=== PATIENT | male | born 1950 | race Caucasian/White ===

== ENCOUNTER 2022-09-19 08:11 | Outpatient (REF) | payer MEDICARE, SELFPAY ==
[2022-09-19 11:24] LABS: MANUAL DIFF FLAG NO
[2022-09-19 11:54] LABS: Basophils Percent Auto 0.5 % (0-2); Eosinophils Absolute Auto 0.2 X10*3/uL (0.0-0.4); Eosinophils Percent Auto 1.8 % (0-4); Hematocrit 41.4 % (42.0-52.0); Hemoglobin 14.3 g/dl (14.0-18.0); Imm Gran Abs Auto 0.07 X10*3/uL (0.00-0.03); Imm Gran Pct Auto 0.8 % (0.0-0.4); Lymphocytes Absolute Auto 2.8 X10*3/uL (1.2-4.9); Lymphocytes Percent Auto 32.5 % (20-40); Mean Corpuscular HGB Conc 34.5 g/dl (31.0-36.0); Mean Corpuscular Hemoglobin 32.3 pg (27.0-33.0); Mean Corpuscular Volume 93.5 fL (80.0-98.0); Monocytes Absolute Auto 0.6 X10*3/uL (0.1-1.2); Monocytes Percent Auto 6.8 % (2-11); Neutrophils Absolute Auto 4.9 x10*3/uL (2.0-8.3); Neutrophils Percent Auto 57.6 % (45-73); Platelet Count 286 X10*3/uL (160-400); Red Blood Count 4.43 X10*6/uL (4.60-5.80); Red Cell Distribution Width 11.6 % (11.0-16.0); White Blood Count 8.5 X10*3/uL (4.8-10.8)
[2022-09-19 12:24] LABS: Alanine Aminotransferase 24 U/L (0-40); Albumin Level 4.3 g/dL (3.5-5.0); Alkaline Phosphatase 45 U/L (39-117); Anion Gap 14 (12-20); Aspartate Amino Transferase 24 U/L (5-37); Bilirubin Total 0.5 mg/dL (0.0-1.0); Blood Urea Nitrogen 15 mg/dL (9-16); Calcium 8.8 mg/dL (8.4-10.2); Carbon Dioxide 28 mmol/L (22-29); Chloride 102 mmol/L (96-108); Cholesterol 209 mg/dL; Estimated Glomerular Filt Rate > 60; Glucose Fasting 92 mg/dL (60-99); HDL Cholesterol 30 mg/dL; LDL Cholesterol Calculated 151 mg/dl; Potassium 3.8 mmol/L (3.3-5.1); Sodium 140 mmol/L (135-145); Total Protein 7.1 g/dL (6.5-8.0); Triglycerides 142 mg/dL
[2022-09-19 12:43] LABS: Prostate Specific Antigen Scr 14.75 ng/mL (<0.05-4.0); TSH reflex Free T4 0.35 uIU/mL (0.32-4.0)
== END 2022-09-19 08:12 | disposition home or self-care (01) ==
LOC: HO.WFDLDS 08:11
PROVIDERS: Visit Provider Family Medicine
DX: Z00.00 Encounter for general adult medical examination without abnormal findings (principal); Z12.5 Encounter for screening for malignant neoplasm of prostate
CPT/HCPCS: 36415; 80053; 80061; 84153; 84443; 85025

== ENCOUNTER 2022-12-20 08:04 | Outpatient (REF) | payer MEDICARE, SELFPAY ==
[2022-12-20 11:37] LABS: MANUAL DIFF FLAG NO
[2022-12-20 11:41] LABS: Basophils Percent Auto 0.4 % (0-2); Eosinophils Absolute Auto 0.1 X10*3/uL (0.0-0.4); Eosinophils Percent Auto 0.9 % (0-4); Hemoglobin 14.7 g/dl (14.0-18.0); Imm Gran Abs Auto 0.06 X10*3/uL (0.00-0.03); Imm Gran Pct Auto 0.7 % (0.0-0.4); Lymphocytes Absolute Auto 2.5 X10*3/uL (1.2-4.9); Lymphocytes Percent Auto 28.1 % (20-40); Mean Corpuscular HGB Conc 34.2 g/dl (31.0-36.0); Mean Corpuscular Hemoglobin 32.1 pg (27.0-33.0); Mean Corpuscular Volume 93.9 fL (80.0-98.0); Mean Platelet Volume 11.5 fL (9.4-12.4); Monocytes Absolute Auto 0.8 X10*3/uL (0.1-1.2); Monocytes Percent Auto 8.7 % (2-11); Neutrophils Absolute Auto 5.5 x10*3/uL (2.0-8.3); Neutrophils Percent Auto 61.2 % (45-73); Platelet Count 256 X10*3/uL (160-400); Red Blood Count 4.58 X10*6/uL (4.60-5.80); Red Cell Distribution Width 12.2 % (11.0-16.0); White Blood Count 9.1 X10*3/uL (4.8-10.8)
[2022-12-20 12:36] LABS: Cholesterol 210 mg/dL; HDL Cholesterol 35 mg/dL; LDL Cholesterol Calculated 149 mg/dl; Triglycerides 130 mg/dL
== END 2022-12-20 08:05 | disposition home or self-care (01) ==
LOC: HO.WFDLDS 08:04
PROVIDERS: Visit Provider Family Medicine
DX: Z00.00 Encounter for general adult medical examination without abnormal findings (principal); E78.00 Pure hypercholesterolemia, unspecified; D64.9 Anemia, unspecified
CPT/HCPCS: 36415; 80061; 85025

== ENCOUNTER 2023-03-20 07:38 | Outpatient (REF) | payer MEDICARE, SELFPAY ==
[2023-03-20 13:33] LABS: Cholesterol 158 mg/dL; HDL Cholesterol 40 mg/dL; LDL Cholesterol Calculated 92 mg/dl; Triglycerides 133 mg/dL
== END 2023-03-20 07:39 | disposition home or self-care (01) ==
LOC: HO.WFDLDS 07:38
PROVIDERS: Visit Provider Family Medicine
DX: E78.00 Pure hypercholesterolemia, unspecified (principal)
CPT/HCPCS: 36415; 80061

== ENCOUNTER 2023-03-27 08:38 | Outpatient (AMB) | payer MEDICARE, SELFPAY ==
--- NOTE | 2023-03-27 09:26 | A.OFFPC_ITS ---
Vital Signs 03/27/23 09:28 BP 124/78 Blood Pressure Location Rt brachial Pulse 80 Pulse Source Auscultation Intake Visit Reasons: f/u hypercholesterolemia Allergies amoxicillin Allergy (Unknown, Verified 12/25/22 08:38) hives Medication List - Last Reconciled 03/27/23 by Nathan Ferrell MD atorvastatin 10 mg PO BEDTIME 30 days lisinopril-hydrochlorothiazide 20-12.5 mg 1 tab PO DAILY 30 days Tobacco use date assessed: 09/27/22 HPI f/u hypercholesterolemia HPI Details 73 y/o male presents to f/u hypercholesterolemia. Had started him on artovastatin for his cholesterols. He reports he had experiencing muscular soreness/discomfort at bilateral hips that he has never experienced before. Labs were drawn 03/20/23. Reviewed labs with pt. Triglycerides 133. TC 158. LDL 92, which improved from 149. HDL 40. He reports sleep issues have improved. [facility] Social History Housing: House Patient Tobacco Use Status: Former Tobacco user e-Cigarette/Vaping Use: Never Used Second Hand Smoke Exposure: No service: No Current occupational status: retired Current occupational exposures/hazards: No Cognitive needs: No Hearing needs: No Vision needs: No Questionnaire Thrive Questionnaire Date Thrive assessed: 09/27/22 SRIDHAR-7 AMB Questionnaire SRIDHAR-7 Date SRIDHAR - 7 assessed: 09/27/22 Source: Developed by Drs. Don Flynn, Gauri Cevallos, Obey Wilkinson and colleagues, with an educational cindy from [employer]. Review of Systems Const Denies chills, Denies fatigue, Denies fever(s), Denies headache(s) and Denies weakness ENT Denies dizziness and Denies headache(s) Card Denies dyspnea Resp Denies cough, Denies dyspnea, Denies wheezing and Denies other (shortness of breath) Musc Denies numbness and Denies tingling Neuro Denies dizziness, Denies headache(s), Denies numbness, Denies tingling and Denies weakness Psych Denies anxiety and Denies depression Endo Denies fatigue Aller/Immun Denies wheezing Physical exam (Primary Care) Tobacco/Smoking Status: Tobacco use Status Tobacco use date assessed 09/27/22 03/27/23 09:27 Patient Tobacco Use Status Former Tobacco user 03/27/23 09:27 e-Cigarette/Vaping Use Never Used 03/27/23 09:27 Thrive Assessment: Date of Thrive Assessment Date Thrive assessed 09/27/22 03/27/23 09:27 Const General: well developed; No acute distress Nutritional Appearance: well nourished Orientation/consciousness: patient oriented x3 HENMT Head: Yes normocephalic and Yes atraumatic Eyes General: appearance normal, both eyes and all related structures Pupils: Equal, round and reactive pupils present EOM: EOMs intact bilaterally Resp Effort & Inspection: normal respiratory effort Neuro General: patient oriented x3 and gait normal Cranial nerves: Yes Equal, round and reactive pupils present Psych Affect: normal affect Assessment and Plan Assessment & Plan (1) Hypercholesterolemia: Code(s): E78.00 - Pure hypercholesterolemia, unspecified Plan: Lipids now well controlled but patient notes increased soreness at bilateral hips Will have him take atorvastatin 5 mg daily instead of 10 mg daily and follow-up in a few months Coding Level of Care Code Est Pt Level 3 (60474) Diagnoses Hypercholesterolemia E78.00
[2023-03-27 09:28] VITALS: BP 124/78; PULSE 80
== END 2023-03-27 09:28 | disposition home or self-care (01) ==
PROVIDERS: Visit Provider Family Medicine
DX: E78.00 Pure hypercholesterolemia, unspecified (principal)
CPT/HCPCS: 99213

== ENCOUNTER 2023-07-23 07:52 | Outpatient (REF) | payer MEDICARE, SELFPAY ==
[2023-07-23 12:07] LABS: Cholesterol 179 mg/dL (<200); HDL Cholesterol 38 mg/dL (>40); LDL Cholesterol Calculated 110 mg/dL (<100); Triglycerides 158 mg/dL (<150)
== END 2023-07-23 07:53 | disposition home or self-care (01) ==
LOC: HO.WFDLDS 07:52
PROVIDERS: Visit Provider Family Medicine
DX: E78.00 Pure hypercholesterolemia, unspecified (principal)
CPT/HCPCS: 36415; 80061

== ENCOUNTER 2023-08-01 11:47 | Outpatient (AMB) | payer MEDICARE, SELFPAY ==
--- NOTE | 2023-08-01 12:03 | MHC.PC.OV ---
Vital Signs 08/01/23 12:07 BMI Reason not done Patient refused/unable BP 128/60 Blood Pressure Location Lt brachial Position Sitting Respiration 14 Pulse 71 Pulse Source Pulse Oximeter Pulse Oximetry (%) 99 Oxygen Delivery Method Room Air Intake Visit Reasons: follow up hypercholestrolemia Intake Note: Patient is here to review his lab results. Manager Lvn Required: No Accompanied by: Self / Same As Patient Allergies amoxicillin Allergy (Unknown, Verified 08/01/23 12:08) hives Tobacco use date assessed: 08/01/23 Fall risk assessment: No Falls in past year Last assessed Fall Risk: 08/01/23 HPI follow up hypercholestrolemia HPI Details 73 y/o male presents to f/u hypercholesterolemia. Lipid panel drawn 07/23/23. Reviewed labs with pt. Triglycerides 158. TC 179. LDL 110. HDL low at 38. He is on artovastatin 10mg. Blood pressure today 128/60. He is on lisinopril-HCTZ 20-12.5mg daily. Pt reports hx of L eye chalazion and treatment though he notes he has not been able to get rid of this completely. HPI Comments History of Present Illness Details Documentation assistance for Nathan Ferrell MD, was provided by Gee Cuello,? Diploma Pharmacy Technician on 08/01/2023 1:01 PM EST. I, Dr. Ferrell, have read, observed, and verified documentation.? [facility] Social History Housing: House Patient Tobacco Use Status: Former Tobacco user e-Cigarette/Vaping Use: Never Used Second Hand Smoke Exposure: No service: No Current occupational status: retired Current occupational exposures/hazards: No Cognitive needs: No Hearing needs: No Vision needs: No Questionnaire Thrive Questionnaire Date Thrive assessed: 09/27/22 SRIDHAR-7 AMB Questionnaire SRIDHAR-7 Date SRIDHAR - 7 assessed: 09/27/22 Source: Developed by Drs. Don Flynn, Gauri Cevallos, Obey Wilkinson and colleagues, with an educational cindy from [employer]. Review of Systems Const Denies chills, Denies fatigue, Denies fever(s), Denies headache(s) and Denies weakness ENT Denies dizziness and Denies headache(s) Card Denies dyspnea Resp Denies cough, Denies dyspnea, Denies wheezing and Denies other (shortness of breath) Musc Denies numbness and Denies tingling Neuro Denies dizziness, Denies headache(s), Denies numbness, Denies tingling and Denies weakness Psych Denies anxiety and Denies depression Endo Denies fatigue Aller/Immun Denies wheezing Physical exam (Primary Care) Vital Signs: Last Vital Signs Pulse 71 08/01/23 12:07 Resp 14 08/01/23 12:07 BP 128/60 08/01/23 12:07 Pulse Ox 99 08/01/23 12:07 Oxygen Delivery Method Room Air 08/01/23 12:07 Tobacco/Smoking Status: Tobacco use Status Tobacco use date assessed 08/01/23 08/01/23 12:12 Patient Tobacco Use Status Former Tobacco user 08/01/23 12:03 e-Cigarette/Vaping Use Never Used 08/01/23 12:03 Thrive Assessment: Date of Thrive Assessment Date Thrive assessed 09/27/22 08/01/23 12:03 Const General: well developed; No acute distress Nutritional Appearance: well nourished Orientation/consciousness: patient oriented x3 HENMT Head: Yes normocephalic and Yes atraumatic Eyes General: appearance normal, both eyes and all related structures Pupils: Equal, round and reactive pupils present EOM: EOMs intact bilaterally Resp Effort & Inspection: normal respiratory effort Neuro General: patient oriented x3 and gait normal Cranial nerves: Yes Equal, round and reactive pupils present Psych Affect: normal affect Assessment and Plan Assessment & Plan (1) Hypertension: Code(s): I10 - Essential (primary) hypertension Plan: Blood?pressure?is?controlled.??Goal?is?less?than?140/90 Continue?current?medication?regimen (2) Hypercholesterolemia: Code(s): E78.00 - Pure hypercholesterolemia, unspecified Plan: LDL?cholesterol?110?with?reduction?of?atorvastatin;?he?is?now?tolerating?atorvastatin Continue?current?medication?regimen Encouraged?a?diet?lower?in?saturated?fats?and?cholesterol Encouraged?exercise?as?his?HDL?was?mildly?low?at?38 (3) Low HDL (under 40): Code(s): E78.6 - Lipoprotein deficiency Plan: As?above (4) Chalazion: Code(s): H00.19 - Chalazion unspecified eye, unspecified eyelid Plan: Left?eye?chalazion?for?which?patient?has?been?using?warm?compresses?which?have?helped?but?not?fully?resolved?the?problem. Will?give?him?a?script?for?erythromycin?ointment?and?he?can?continue?warm?compresses. If?this?still?does?not?fully?resolve,?would?refer?him?to?Ophthalmology. Medications: New erythromycin 0.5 inches ophthalmic (eye) TID 3.5 grams 0RF 7 days Coding Level of Care Code Est Pt Level 4 (84061) Diagnoses Hypertension I10 Hypercholesterolemia E78.00 Low HDL (under 40) E78.6 Chalazion H00.19
[2023-08-01 12:07] VITALS: BP 128/60; PULSE 71; RESP 14; O2SAT 99
== END 2023-08-01 13:02 | disposition home or self-care (01) ==
PROVIDERS: PCP Family Medicine; Visit Provider Family Medicine
DX: I10 Essential (primary) hypertension (principal); E78.00 Pure hypercholesterolemia, unspecified; E78.6 Lipoprotein deficiency; H00.19 Chalazion unspecified eye, unspecified eyelid
CPT/HCPCS: 99214

== ENCOUNTER → 2023-12-31 09:37 | Outpatient (AMB) | payer MEDICARE, SELFPAY ==
[2023-12-31 09:55] VITALS: BP 130/74; PULSE 70; O2SAT 99
--- NOTE | 2023-12-31 09:55 | A.OFFPC_ITS ---
Vital Signs 12/31/23 09:55 BMI Reason not done Patient refused/unable BP 130/74 Blood Pressure Location Lt brachial Position Sitting Pulse 70 Pulse Source Pulse Oximeter Pulse Oximetry (%) 99 Intake Visit Reasons: f/u HTN Intake Note: Patient is here to follow up on hypertension. Allergies amoxicillin Allergy (Unknown, Verified 12/31/23 09:56) hives Tobacco use date assessed: 12/31/23 Fall risk assessment: 1 Fall in past year Last assessed Fall Risk: 12/31/23 Dental Screening Dental Screen Date: 12/31/23 Did you have a dental visit in the last 12 months?: No Did you have a dental problem in the last 6 months where you did not have access to dental care?: No Was dental information given to patient?: Patient declined HPI f/u HTN HPI Details 73 y/o male presents to f/u hypertension . Blood pressure today 130/74, 70p. He is on lisinopril-HCTZ 20-12.5mg daily. [facility] Social History Housing: House Patient Tobacco Use Status: Former Tobacco user e-Cigarette/Vaping Use: Never Used Second Hand Smoke Exposure: No service: No Current occupational status: retired Current occupational exposures/hazards: No Cognitive needs: No Hearing needs: No Vision needs: No Questionnaire PHQ-9 Over the last 2 weeks, how often have you been bothered by any of the following problems? 1. Little interest or pleasure in doing things: not at all 2. Feeling down, depressed, or hopeless: not at all 3. Trouble falling or staying asleep, or sleeping too much: not at all 4. Feeling tired or having little energy: not at all 5. Poor appetite or overeating: not at all 6. Feeling bad about yourself - or that you are a failure or have let yourself or your family down: not at all 7. Trouble concentrating on things, such as reading the newspaper or watching television: not at all 8. Moving or speaking so slowly that other people could have noticed. Or the opposite - being so fidgety or restless that you have been moving around a lot more than usual: not at all 9. Thoughts that you would be better off or of hurting yourself in some way: not at all Total score: 0 Source: Developed by Drs. Don Flynn, Obey Harvey and colleagues, with an educational cindy from [employer]. Thrive Questionnaire Date Thrive assessed: 12/31/23 I am a: Patient What is your living situation today?: I have a steady place to live Within the past 12 months, did the food you bought not last and you didn't have the money to get more?: Never true Within the past 12 months, did you worry whether your food would run out before you got money to buy more?: Never true Do you have trouble paying for medicines?: No Do you have trouble getting transportation to medical appointments?: No Do you have trouble paying your heating and electricity bill?: No Do you have trouble taking care of your child, family member or friend?: No Do you have trouble with day-to-day activities such as bathing, preparing meals, shopping, managing finances, etc.?: No Are you currently unemployed and looking for a job?: No Are you interested in more education?: No THRIVE Score: 0 AUDIT C Alcohol Use Questionnaire (AUDIT-C) 1. How often do you have a drink containing alcohol?: Monthly or less 2. How many drinks containing alcohol do you have on a typical day when you are drinking?: 1 or 2 3. How often do you have six or more drinks on one occasion?: Never Total Score: 1 SRIDHAR-7 AMB Questionnaire SRIDHAR-7 Date SRIDHAR - 7 assessed: 12/31/23 Feeling nervous, anxious, or on edge: 0 = Not at all Not being able to stop or control worryin = Not at all Worrying too much about different things: 0 = Not at all Trouble relaxin = Not at all Being so restless that it is hard to sit still: 0 = Not at all Becoming easily annoyed or irritable: 0 = Not at all Feeling afraid as if something awful might happen: 0 = Not at all Total SRIDHAR-7 score (0-4 normal; 5-9 mild; 10-14 moderate; 15-21 severe): 0 Source: Developed by Gauri Ricardo Kurt Kroenke and colleagues, with an educational cindy from [employer]. Review of Systems Const Denies chills, Denies fatigue, Denies fever(s), Denies headache(s) and Denies weakness ENT Denies dizziness and Denies headache(s) Card Denies chest pain, Denies lightheadedness, Denies dyspnea and Denies other (Palpitations) Resp Denies cough, Denies dyspnea, Denies wheezing and Denies other ( shortness of breath) Musc Denies numbness and Denies tingling Neuro Denies dizziness, Denies headache(s), Denies numbness, Denies tingling, Denies paresthesias and Denies weakness Psych Denies anxiety and Denies depression Endo Denies fatigue Aller/Immun Denies wheezing Physical exam (Primary Care) Vital Signs: Last Vital Signs Pulse 70 12/31/23 09:55 BP 130/74 12/31/23 09:55 Pulse Ox 99 12/31/23 09:55 Tobacco/Smoking Status: Tobacco use Status Tobacco use date assessed 12/31/23 12/31/23 09:58 Patient Tobacco Use Status Former Tobacco user 12/31/23 09:58 e-Cigarette/Vaping Use Never Used 12/31/23 09:58 PHQ-9: PHQ-9 Score PHQ-9: Total score 0 12/31/23 10:02 Thrive Assessment: Date of Thrive Assessment Date Thrive assessed 12/31/23 12/31/23 10:02 Const General: no acute distress and well developed Nutritional Appearance: well nourished Orientation/consciousness: patient oriented x3 HENMT Head: Yes normocephalic and Yes atraumatic Eyes General: appearance normal, both eyes and all related structures Pupils: Equal, round and reactive pupils present EOM: EOMs intact bilaterally Resp Effort & Inspection: normal respiratory effort Auscultation: clear to auscultation bilaterally Cardio Rate: regular rate Rhythm: regular rhythm Heart sounds: S1 normal heart sound present, S2 normal heart sound present, no gallops, no murmurs and no rubs Neuro General: patient oriented x3 and gait normal Cranial nerves: Yes Equal, round and reactive pupils present Psych Affect: normal affect Assessment and Plan Assessment & Plan (1) Hypertension: Code(s): I10 - Essential (primary) hypertension Plan: Blood?pressure?is?controlled.??Goal?is?less?than?140/90 Continue?current?medication (2) Hypercholesterolemia: Code(s): E78.00 - Pure hypercholesterolemia, unspecified Plan: Lipids?have?been?elevated.??He?was?on?atorvastatin?but?has?not?been?tolerating?t his.??He?discontinued?it?a?few?weeks?ago He?would?like?to?follow-up?on?this?in?the?fall Encouraged?diet?low?in?saturated?fats?and?cholesterol,?exercise?and?weight?contr ol. Will?repeat?lipids?with?his?labs?prior?to?visit?in?the?fall. (3) Low HDL (under 40): Code(s): E78.6 - Lipoprotein deficiency Plan: HDL?has?been?mildly?low Encouraged?active?lifestyle?and?exercise Orders: Orders Comprehensive [place]. Panel Fast Today Z00.00 - Encounter for general adult medic al examination without abnormal findings Complete Blood Count Auto Diff Today Z00.00 - Encounter for general adult medical examination without abnormal findings Microalbumin, Random (w Creat) Today I10 - Essential (primary) hypertension Lipid Panel Today Z00.00 - Encounter for general adult medical examination without abnormal findings Prostate Specific Antigen Scr Today Z12.5 - Encounter for screening for malignant neoplasm of prostate UA and rflx microscopic Today Z00.00 - Encounter for general adult medical examination without abnormal findings TSH reflex Free T4 Today Z00.00 - Encounter for general adult medical examination without abnormal findings Coding Level of Care Code Est Pt Level 3 (76085) Diagnoses Hypertension I10 Hypercholesterolemia E78.00 Low HDL (under 40) E78.6
== END ==
PROVIDERS: PCP Family Medicine; Visit Provider Family Medicine
DX: I10 Essential (primary) hypertension (principal); E78.00 Pure hypercholesterolemia, unspecified; E78.6 Lipoprotein deficiency
CPT/HCPCS: 99213

== ENCOUNTER 2024-08-01 07:41 | Outpatient (REF) | payer MEDICARE, SELFPAY ==
[2024-08-01 10:57] LABS: MANUAL DIFF FLAG NO
[2024-08-01 11:04] LABS: Basophils Percent Auto 0.3 % (0-2); Eosinophils Absolute Auto 0.1 X10*3/uL (0.0-0.4); Eosinophils Percent Auto 1.1 % (0-4); Hematocrit 41.3 % (42.0-52.0); Hemoglobin 13.9 g/dl (14.0-18.0); Imm Gran Abs Auto 0.04 X10*3/uL (0.00-0.03); Imm Gran Pct Auto 0.4 % (0.0-0.4); Lymphocytes Absolute Auto 2.4 X10*3/uL (1.2-4.9); Lymphocytes Percent Auto 26.4 % (20-40); Mean Corpuscular HGB Conc 33.7 g/dl (31.0-36.0); Mean Corpuscular Hemoglobin 31.3 pg (27.0-33.0); Mean Platelet Volume 11.1 fL (9.4-12.4); Monocytes Absolute Auto 0.6 X10*3/uL (0.1-1.2); Monocytes Percent Auto 6.3 % (2-11); Neutrophils Percent Auto 65.5 % (45-73); Platelet Count 283 X10*3/uL (160-400); Red Blood Count 4.44 X10*6/uL (4.60-5.80); Red Cell Distribution Width 11.8 % (11.0-16.0); White Blood Count 9.1 X10*3/uL (4.8-10.8)
[2024-08-01 11:22] LABS: Alanine Aminotransferase 23 U/L (0-40); Albumin Level 4.4 g/dL (3.5-5.0); Alkaline Phosphatase 57 U/L (39-117); Anion Gap 11 (12-20); Aspartate Amino Transferase 33 U/L (5-37); Bilirubin Total 0.6 mg/dL (0.0-1.0); Blood Urea Nitrogen 23 mg/dL (9-16); Carbon Dioxide 28 mmol/L (22-29); Chloride 104 mmol/L (96-108); Cholesterol 193 mg/dL (<200); Estimated Glomerular Filt Rate 57; Glucose Fasting 93 mg/dL (60-99); HDL Cholesterol 30 mg/dL (>40); LDL Cholesterol Calculated 135 mg/dL (<100); Potassium 4.4 mmol/L (3.3-5.1); Sodium 139 mmol/L (135-145); Total Protein 7.6 g/dL (6.5-8.0); Triglycerides 143 mg/dL (<150)
[2024-08-01 11:43] LABS: TSH reflex Free T4 0.41 uIU/mL (0.32-4.0)
== END 2024-08-01 07:42 | disposition home or self-care (01) ==
LOC: HO.WFDLDS 07:41
PROVIDERS: Visit Provider Family Medicine
DX: Z00.00 Encounter for general adult medical examination without abnormal findings (principal); E78.6 Lipoprotein deficiency; Z12.5 Encounter for screening for malignant neoplasm of prostate; I10 Essential (primary) hypertension
CPT/HCPCS: 36415; 80053; 80061; 84153; 84443; 85025

== ENCOUNTER 2024-08-07 11:15 | Outpatient (AMB) | payer MEDICARE, SELFPAY ==
--- NOTE | 2024-08-07 11:18 | MHC.PC.OV ---
Vital Signs 08/07/24 11:26 Weight 224 lb 4 oz BP 118/58 L Blood Pressure Location Lt brachial Position Sitting Pulse 89 Pulse Source Pulse Oximeter Pulse Oximetry (%) 94 Oxygen Delivery Method Room Air Intake Visit Reasons: Annual Intake Note: Medical annual wellness Psychological Examiner Required: No Allergies amoxicillin Allergy (Unknown, Verified 08/07/24 11:19) hives Penicillins Allergy (Verified 08/07/24 11:22) short of breath Medication List - Last Reconciled 08/07/24 by Katelyn Miranda PA-C lisinopril-hydrochlorothiazide 20-12.5 mg 1 tab PO DAILY 30 days Tobacco use date assessed: 12/31/23 Dental Screening Dental Screen Date: 12/31/23 HPI Annual HPI Details Patient is a 74-year-old male with a significant past medical history of hypertension, hyperlipidemia and elevated PSA presenting today for a physical exam. Normally follows with Dr. Ferrell. He states that he has a uti today. Reports burning and frequency of urination. No fever or chills. No n/v or flank pain. He had labs done a week ago in preparation for this appointment. We did discuss that his labs show a mild anemia, decreased kidney function which appears to be new, an increased PSA, and elevated cholesterol. CV: Blood pressure today in the office is 118/58. He is currently on lisinopril/hydrochlorothiazide 20/12.5 mg. He is not currently on a statin but did not tolerate statins. He does not want medication for this. Uro: Last PSA was 17.6. It did increase from 14 and he states that his PCP put in a referral to Urology but he does not want to see Urology. He does also have symptoms today of a UTI including increased urinary frequency, urgency and dysuria. States that this is his 1st UTI. No malodorous urine. Colonoscopy: He states many years ago and he does not want to do this ever again. [facility] Medical History (Updated 08/07/24 @ 11:46 by Katelyn Miranda PA-C) Tennis elbow Social History (Updated 08/07/24 @ 11:24 by Suzan Jolly CMA) Housing: House Alcohol intake: current Patient Tobacco Use Status: Former Tobacco user e-Cigarette/Vaping Use: Never Used Second Hand Smoke Exposure: No Use of substances other than those prescribed or required for medical reasons: No service: No Current occupational status: retired Current occupational exposures/hazards: No Cognitive needs: No Hearing needs: No Vision needs: No Questionnaire Thrive Questionnaire Date Thrive assessed: 12/31/23 AUDIT C Alcohol Use Questionnaire (AUDIT-C) 2. How many drinks containing alcohol do you have on a typical day when you are drinking?: 1 or 2 3. How often do you have six or more drinks on one occasion?: Never Total Score: 0 SRIDHAR-7 AMB Questionnaire SRIDHAR-7 Date SRIDHAR - 7 assessed: 12/31/23 Source: Developed by Drs. Don Flynn, Gauri Cevallos, Obey Wilkinson and colleagues, with an educational cindy from [employer]. Physical exam (Primary Care) Vital Signs: Last Vital Signs Pulse 89 08/07/24 11:26 BP 118/58 L 08/07/24 11:26 Pulse Ox 94 08/07/24 11:26 Oxygen Delivery Method Room Air 08/07/24 11:26 Tobacco/Smoking Status: Tobacco use Status Tobacco use date assessed 12/31/23 08/07/24 11:18 Patient Tobacco Use Status Former Tobacco user 08/07/24 11:24 e-Cigarette/Vaping Use Never Used 08/07/24 11:24 Thrive Assessment: Date of Thrive Assessment Date Thrive assessed 12/31/23 08/07/24 11:18 Const Orientation/consciousness: patient oriented x3 HENMT Ears: hearing grossly normal bilaterally and TM's normal bilaterally General nose exam: No nasal polyps present Face and sinus: Yes sinuses nontender Mouth: Normal oral and palatal mucosa present Eyes Pupils: Equal, round and reactive pupils present EOM: EOMs intact bilaterally Neck Neck: Yes full ROM and Yes no lymphadenopathy Thyroid: Thyroid normal Chest Chest palpation & inspection: normal inspection of the chest Resp Auscultation: clear to auscultation bilaterally Cardio Rate: regular rate Rhythm: regular rhythm Heart sounds: S1 normal heart sound present and S2 normal heart sound present Peripheral pulses: Peripheral pulses 2+ throughout GI Other: Soft, nontender Auscultation: normal bowel sounds Rectal Exam - Male: Yes deferred General: Yes no CVA tenderness Back/Spine/Pelvis Other: Nontender Back: no CVA tenderness Skin General skin exam: no rashes or lesions noted Neuro General: patient oriented x3, gait normal, CN's II-XI intact bilaterally and deep tendon reflexes 2+ bilaterally Cranial nerves: Yes Equal, round and reactive pupils present Motor exam (neuro): 5/5 motor strength present throughout Sensory Exam: double simultaneous stimulation for sensation normal Coordination: [id number] test normal and Romberg test negative Extrem General: Yes normal to inspection and Yes full ROM Psych Affect: normal affect Attitude: cooperative Thought process: Normal thought process present Thought content: Normal thought content present Insight: Good insight present (Psych) Judgement: Good judgement present (Psych) Results Reviewed Results Reviewed: Laboratory Tests 08/01/24 07:43 Sodium 139 Potassium 4.4 Chloride 104 Carbon Dioxide 28 Anion Gap 11 L BUN 23 H Creatinine 1.24 Estimated GFR 57 Fasting Glucose 93 AST 33 ALT 23 Triglycerides 143 Cholesterol 193 LDL Cholesterol, Calc 135 H HDL Cholesterol 30 L PSA Screen 17.60 H TSH 0.41 Coding Level of Care Code Est Pt Prev Care >65y(33372) Diagnoses Routine general medical examination at a health care facility Z00.00 UTI symptoms R39.9 Urinary frequency R35.0 Elevated PSA R97.20 Hypercholesterolemia E78.00 Hypertension I10 Borderline anemia D64.9 Assessment & Plan Assessment & Plan (1) Routine general medical examination at a health care facility: Code(s): Z00.00 - Encounter for general adult medical examination without abnormal findings Plan: Labs reviewed today with patient. Health maintenance reviewed. Patient wants the labs to be reviewed again with his PCP. He states that he would like me to treat the UTI today. (2) UTI symptoms: Code(s): R39.9 - Unspecified symptoms and signs involving the genitourinary system Plan: We will start patient on Cipro. Discussed risks and benefits and adverse effects of the medication. UA and culture ordered today. He is unable to provide a sample right now but states he will drop off at the lab in an hour. We did discuss that if the results are negative for UTI he does not need to take the Cipro. I did discuss given his elevated PSA, urinary frequency and urinary tract symptoms advised him to see Urology. He states that he does not want to do this and he is going to wait until he has an actual conversation with his doctor. He is aware that the urology was referral was placed a few days ago and is recommended by his PCP. He states he prefers to have an in-person appointment and we will discuss this with him at that visit. He is aware that the elevated prostate can also signify prostate cancer. He states he feels really confident this is just BPH. (3) Urinary frequency: Code(s): R35.0 - Frequency of micturition Category: Medical Plan: As above (4) Elevated PSA: Code(s): R97.20 - Elevated prostate specific antigen [PSA] Category: Medical Plan: As above (5) Hypercholesterolemia: Code(s): E78.00 - Pure hypercholesterolemia, unspecified Category: Medical Plan: did not tolerate statins. Continue healthy lifestyle. Follow up with PCP. (6) Hypertension: Code(s): I10 - Essential (primary) hypertension Category: Medical Plan: WNL. Continue current regimen (7) Borderline anemia: Code(s): D64.9 - Anemia, unspecified Category: Medical Plan: Does not want this worked up. Orders: Orders UA CC w/rflx Micro + Cult Today R35.0 - Frequency of micturition, Z13.220 - Encounter for screening for lipoid disorders Medications: New ciprofloxacin HCl (Cipro) 500 mg PO Q12H 7 days 14 tabs 0RF
[2024-08-07 11:26] VITALS: BP 118/58; PULSE 89; O2SAT 94
== END 2024-08-07 15:57 | disposition home or self-care (01) ==
PROVIDERS: PCP Family Medicine; Visit Provider Physician Assistant
DX: Z00.00 Encounter for general adult medical examination without abnormal findings (principal); R39.9 Unspecified symptoms and signs involving the genitourinary system; R35.0 Frequency of micturition; R97.20 Elevated prostate specific antigen [PSA]; E78.00 Pure hypercholesterolemia, unspecified; I10 Essential (primary) hypertension; D64.9 Anemia, unspecified

== ENCOUNTER 2024-08-07 11:15 | Outpatient (REF) | payer MEDICARE, SELFPAY ==
[2024-08-07 14:27] LABS: Appearance Urine Clear; Color Urine Yellow; Glucose Urine UA Negative (Negative); Leukocyte Esterase Urine Negative (Negative); Nitrite Urine Negative (Negative); PH 5.5 (5.0-9.0); Specific Gravity - Urine 1.015 (1.005-1.025); Urine Blood Negative (Negative); Urine Ketones Negative (Negative); Urine Protein Negative (Neg-Trace)
== END 2024-08-07 11:16 | disposition home or self-care (01) ==
LOC: HO.LNP 11:15
PROVIDERS: PCP Family Medicine; Visit Provider Physician Assistant
DX: Z13.220 Encounter for screening for lipoid disorders (principal); R35.0 Frequency of micturition; Z00.00 Encounter for general adult medical examination without abnormal findings; R39.9 Unspecified symptoms and signs involving the genitourinary system; R97.20 Elevated prostate specific antigen [PSA]; E78.00 Pure hypercholesterolemia, unspecified; I10 Essential (primary) hypertension; D64.9 Anemia, unspecified
CPT/HCPCS: 81003; 99397

== ENCOUNTER 2024-09-28 11:50 | Outpatient (REF) | payer MEDICARE, SELFPAY | END 2024-09-28 11:51 | disposition home or self-care (01) | LOC: HO.LNP 11:50 | PROVIDERS: Visit Provider Family Medicine | DX: Z13.89 Encounter for screening for other disorder (principal) | CPT/HCPCS: 87338 ==

== ENCOUNTER 2024-09-29 13:59 | Outpatient (REF) | payer MEDICARE, SELFPAY ==
--- NOTE | ~2024-09-29 | XR_ITS ---
EXAMINATION: XR ABDOMEN 1 VIEW (KUB) HISTORY: R14.0 - Abdominal distension (gaseous) COMPARISON: There are no prior studies for comparison. FINDINGS: Two supine views of the abdomen are submitted. The bowel gas pattern is unremarkable, without evidence of mechanical obstruction. No abnormal calcifications are identified. There are no abnormal soft tissue masses. There is degenerative disc disease of the spine. XR/XR KUB IMPRESSION: Unremarkable bowel gas pattern. Electronically signed by: Don Chavarria MD 10/03/2024 09:02 AM GAL
== END 2024-09-29 14:00 | disposition home or self-care (01) ==
LOC: HO.XRAY 13:59
PROVIDERS: PCP Family Medicine; Visit Provider Family Medicine
DX: Z13.89 Encounter for screening for other disorder (principal)
CPT/HCPCS: 36415; 74018; 80053; 84443; 85025; 96127; 99212

== ENCOUNTER 2024-09-29 13:59 | Outpatient (AMB) | payer MEDICARE, SELFPAY ==
--- NOTE | 2024-09-29 14:07 | MHC.PC.OV ---
Vital Signs 09/29/24 14:12 Height 5 ft 10.5 in Weight 195 lb 6 oz BMI 27.6 BP 149/67 H Blood Pressure Location Rt brachial Position Sitting Respiration 13 Pulse 97 Pulse Source Pulse Oximeter Temp 96.8 F Temp Source Temporal Artery Scan Pulse Oximetry (%) 100 Oxygen Delivery Method Room Air Intake Visit Reasons: est/no appitiete,weakness.low bp,burp Intake Note: Patient complaining of abd px, fatigue, and no appetite since July Rehabilitation Medicine Physician Required: No Allergies amoxicillin Allergy (Unknown, Verified 09/29/24 14:08) hives Penicillins Allergy (Verified 09/29/24 14:08) short of breath Tobacco use date assessed: 12/31/23 Dental Screening Dental Screen Date: 12/31/23 HPI est/no appitiete,weakness.low bp,burp HPI Details 74 y/o male presents today with complaints of low appetite, weakness and complaints of burping. He notes symptoms started instantly about a month ago. Assoc with food he ate. He also notes low blood pressures. BP elevated today. Blood pressure today 149/67. He is on lisinopril-HCTZ 20-12.5mg daily. Denies any chest pain. Reports abd. bloating. Did note an episode of urinary incontinence about a month ago. HPI Comments History of Present Illness Details Documentation assistance for Nathan Ferrell MD, was provided by Gee Cuello, [employer] on 09/29/2024 at 2:25 PM EST. I, Dr. Ferrell, have read, observed, and verified documentation. [facility] Medical History (Updated 09/29/24 @ 14:24 by Gee Cuello) Tennis elbow Social History (Updated 08/07/24 @ 11:24 by Suzan Jolly CMA) Housing: House Alcohol intake: current Patient Tobacco Use Status: Former Tobacco user e-Cigarette/Vaping Use: Never Used Second Hand Smoke Exposure: No service: No Current occupational status: retired Current occupational exposures/hazards: No Cognitive needs: No Hearing needs: No Vision needs: No Questionnaire PHQ-9 Over the last 2 weeks, how often have you been bothered by any of the following problems? 1. Little interest or pleasure in doing things: several days 2. Feeling down, depressed, or hopeless: not at all 3. Trouble falling or staying asleep, or sleeping too much: not at all 4. Feeling tired or having little energy: nearly every day 5. Poor appetite or overeating: nearly every day 6. Feeling bad about yourself - or that you are a failure or have let yourself or your family down: not at all 7. Trouble concentrating on things, such as reading the newspaper or watching television: not at all 8. Moving or speaking so slowly that other people could have noticed. Or the opposite - being so fidgety or restless that you have been moving around a lot more than usual: several days 70175 - PHQ-9 Billing: Yes Source: Developed by Drs. Don Flynn, Gauri Cevallos, Obey Wilkinson and colleagues, with an educational cindy from [employer]. Thrive Questionnaire Date Thrive assessed: 09/29/24 I am a: Patient What is your living situation today?: I have a steady place to live Within the past 12 months, did you worry whether your food would run out before you got money to buy more?: Never true Do you have trouble paying for medicines?: No Do you have trouble getting transportation to medical appointments?: No Do you have trouble paying your heating and electricity bill?: No Do you have trouble with day-to-day activities such as bathing, preparing meals, shopping, managing finances, etc.?: No Are you currently unemployed and looking for a job?: No Are you interested in more education?: No Please select the resources that you would like help with: None Currently or been in a relationship where the following occur: No concerns reported THRIVE Score: 0 AUDIT C Alcohol Use Questionnaire (AUDIT-C) 1. How often do you have a drink containing alcohol?: 2-3 times a week 2. How many drinks containing alcohol do you have on a typical day when you are drinking?: 1 or 2 3. How often do you have six or more drinks on one occasion?: Never Total Score: 3 SRIDHAR-7 AMB Questionnaire SRIDHAR-7 Date SRIDHAR - 7 assessed: 12/31/23 Source: Developed by Drs. Don Flynn, Gauri Cevallos, Obey Wilkinson and colleagues, with an educational cindy from [employer]. Review of Systems Const Denies chills, Denies fatigue, Denies fever(s), Denies headache(s) and Denies weakness ENT Denies dizziness and Denies headache(s) Card Denies dyspnea Resp Denies cough, Denies dyspnea, Denies wheezing and Denies other (shortness of breath) Musc Denies numbness and Denies tingling Neuro Denies dizziness, Denies headache(s), Denies numbness, Denies tingling and Denies weakness Psych Denies anxiety and Denies depression Endo Denies fatigue Aller/Immun Denies wheezing Physical exam (Primary Care) Vital Signs: Last Vital Signs Temp 96.8 F 09/29/24 14:12 Pulse 97 09/29/24 14:12 Resp 13 09/29/24 14:12 BP 149/67 H 09/29/24 14:12 Pulse Ox 100 09/29/24 14:12 Oxygen Delivery Method Room Air 09/29/24 14:12 BMI result Body Mass Index 27.6 Tobacco/Smoking Status: Tobacco use Status Tobacco use date assessed 12/31/23 09/29/24 14:15 Patient Tobacco Use Status Former Tobacco user 09/29/24 14:15 e-Cigarette/Vaping Use Never Used 09/29/24 14:15 Thrive Assessment: Date of Thrive Assessment Date Thrive assessed 09/29/24 09/29/24 14:15 Currently or been in a relationship where the following occur: No concerns reported Const General: well developed; No acute distress Nutritional Appearance: well nourished Orientation/consciousness: patient oriented x3 HENMT Head: Yes normocephalic and Yes atraumatic Eyes General: appearance normal, both eyes and all related structures Pupils: Equal, round and reactive pupils present EOM: EOMs intact bilaterally Resp Effort & Inspection: normal respiratory effort Neuro General: patient oriented x3 and gait normal Cranial nerves: Yes Equal, round and reactive pupils present Psych Affect: normal affect Coding Level of Care Code Est Pt Level 4 (86935) Diagnoses Abdominal bloating R14.0 Alteration in appetite R63.8 Hypertension I10 Additional Codes PHQ-9 - 31277 - PHQ-9 Billing: Yes ([id number]) Assessment & Plan Assessment & Plan (1) Abdominal bloating: Code(s): R14.0 - Abdominal distension (gaseous) Category: Medical Plan: Abdominal?bloating?and?discomfort?with?change?in?appetite, fatigue?and?previously?low?blood?pressures?though?notes?his?blood?pressure?is?higher?today?because?he?is?mildly?stressed. Denies?any?chest?pain?shortness?of?breath Will?check?labs?and?KUB Advised?bowel?rest?today?with?clear?liquid?diet?and?may?advance?diet?as?tolerated?tomorrow Will?also?give?him?script?for?simethicone?bloating Will?follow-up?week.??Advised?him?that?he?has?any?new?concerning?symptoms?he?should?seen?again?sooner. Of?note,?patient's??is?being?treated?for?H?pylori.??Patient?has?pending?test. (2) Alteration in appetite: Code(s): R63.8 - Other symptoms and signs concerning food and fluid intake Category: Medical Plan: As?above (3) Hypertension: Code(s): I10 - Essential (primary) hypertension Category: Medical Plan: Blood?pressure?today?is?little?bit?high?though?has?recently?on?the?low?side. Hydrate?well Continue?current?medication Will?follow-up?next?week.??No?medication?changes?today Orders: Orders UA and rflx microscopic Today R63.8 - Other symptoms and signs concerning food and fluid intake, Z00.00 - Encounter for general adult medical examination without abnormal findings TSH reflex Free T4 Today R63.8 - Other symptoms and signs concerning food and fluid intake, Z00.00 - Encounter for general adult medical examination without abnormal findings XR KUB Today R14.0 - Abdominal distension (gaseous) Comprehensive [place]. Panel Fast Today R63.8 - Other symptoms and signs concerning food and fluid intake, Z00.00 - Encounter for general adult medical examination without abnormal findings Complete Blood Count Auto Diff Today R63.8 - Other symptoms and signs concerning food and fluid intake, Z00.00 - Encounter for general adult medical examination without abnormal findings Medications: New simethicone 80 mg PO BID-QID 30 days PRN 120 tabs 0RF abdominal distention famotidine 20 mg PO BID 30 days 60 tabs 0RF
[2024-09-29 14:12] VITALS: BP 149/67; PULSE 97; RESP 13; TEMP 36; O2SAT 100; BMI 27.6
== END 2024-09-29 14:34 | disposition home or self-care (01) ==
PROVIDERS: PCP Family Medicine; Visit Provider Family Medicine
DX: R14.0 Abdominal distension (gaseous) (principal); R63.8 Other symptoms and signs concerning food and fluid intake; I10 Essential (primary) hypertension

== ENCOUNTER 2024-09-29 14:45 | Outpatient (REF) | payer MEDICARE, SELFPAY ==
[2024-09-29 17:37] LABS: MANUAL DIFF FLAG NO
[2024-09-29 17:56] LABS: Basophils Percent Auto 0.2 % (0-2); Eosinophils Absolute Auto 0.2 X10*3/uL (0.0-0.4); Eosinophils Percent Auto 2.6 % (0-4); Hematocrit 28.1 % (42.0-52.0); Hemoglobin 9.6 g/dl (14.0-18.0); Imm Gran Abs Auto 0.04 X10*3/uL (0.00-0.03); Imm Gran Pct Auto 0.4 % (0.0-0.4); Lymphocytes Absolute Auto 1.5 X10*3/uL (1.2-4.9); Lymphocytes Percent Auto 16.5 % (20-40); Mean Corpuscular HGB Conc 34.2 g/dl (31.0-36.0); Mean Corpuscular Hemoglobin 30.9 pg (27.0-33.0); Mean Corpuscular Volume 90.4 fL (80.0-98.0); Mean Platelet Volume 12.3 fL (9.4-12.4); Monocytes Absolute Auto 0.8 X10*3/uL (0.1-1.2); Monocytes Percent Auto 8.3 % (2-11); Neutrophils Absolute Auto 6.7 x10*3/uL (2.0-8.3); Platelet Count 278 X10*3/uL (160-400); Red Blood Count 3.11 X10*6/uL (4.60-5.80); Red Cell Distribution Width 12.9 % (11.0-16.0); White Blood Count 9.3 X10*3/uL (4.8-10.8)
[2024-09-29 19:14] LABS: Alanine Aminotransferase 13 U/L (0-40); Albumin Level 4.4 g/dL (3.5-5.0); Alkaline Phosphatase 52 U/L (39-117); Anion Gap 18 (12-20); Aspartate Amino Transferase 22 U/L (5-37); Bilirubin Total 0.3 mg/dL (0.0-1.0); Blood Urea Nitrogen 157 mg/dL (9-16); Calcium 9.1 mg/dL (8.4-10.2); Carbon Dioxide 14 mmol/L (22-29); Chloride 109 mmol/L (96-108); Estimated Glomerular Filt Rate 5; Glucose Fasting 115 mg/dL (60-99); Potassium 6.1 mmol/L (3.3-5.1); Sodium 135 mmol/L (135-145); TSH reflex Free T4 0.48 uIU/mL (0.32-4.0); Total Protein 8.4 g/dL (6.5-8.0)
== END 2024-09-29 14:46 | disposition home or self-care (01) ==
LOC: HO.WFDLDS 14:45
PROVIDERS: Visit Provider Family Medicine
DX: Z13.89 Encounter for screening for other disorder (principal)
CPT/HCPCS: 36415; 80053; 84443; 85025

== ENCOUNTER 2024-09-29 19:54 | Inpatient (IN) | payer MEDICARE, SELFPAY ==
--- NOTE | ~2024-09-29 | US_ITS ---
CLINICAL HISTORY: hydronephrosis Retroperitoneal ultrasound Comparison: CT/SR - CT ABDOMEN PELVIS WO IV CON - 09/29/24 22:11 EST Findings: The kidneys are normal in echotexture bilaterally. Mild bilateral hydronephrosis, slightly less than on the prior study allowing for differences in technique. No nephrolithiasis. Twinkle artifact on the left is secondary to a vascular calcification in the renal pelvis. The right kidney is normal in size, measuring 10.8cm in length. The left kidney is normal in size, measuring 11.0cm in length. Interval placement of a Mcpherson catheter. The bladder is no longer distended. The bladder wall is thickened. There is internal debris. Impression: Interval placement of a Mcpherson catheter. The bladder is no longer distended. Wall thickening of the bladder is consistent with suspected chronic outlet obstruction. There is also internal debris in cystitis may also be considered. Correlate with urinalysis. Mild bilateral hydronephrosis with some improvement since the prior study. This document has been electronically signed by: Frida Douglas MD on 10/01/2024 16:24:31
--- NOTE | ~2024-09-29 | CT_ITS ---
CLINICAL HISTORY: acute renal failure, unclear etiology Exam: CT abdomen and pelvis without intravenous contrast. Comparison: None. Findings: Study limited by lack of intravenous contrast. Specifically, evaluation of the vascular tree, solid abdominal organs, and gastrointestinal tract be limited without IV contrast administration. IV contrast was not administered as the patient has a clinical presentation of acute renal failure. CT abdomen: Lung bases are clear. Bones are osteopenic. No acute fracture. Dense coronary artery calcification. Stomach is decompressed. There is hyperdensity within the lumen of the stomach as well as areas of hyperdensity within the small bowel, presumably related to ingested contents. No dilated small bowel is seen. Unenhanced liver, spleen, pancreas, gallbladder, and adrenal glands are unremarkable. Moderate bilateral hydronephrosis. Moderate hydroureter is well with tortuosity of the ureters. There are small calcifications in the renal hilum on the left which I believe are vascular in nature. No collecting system calcifications are seen. [id number] vascular calcification of the abdominal aorta, iliac arteries, and renal arteries. CT pelvis: Massive distention of the urinary bladder. Urinary bladder measures 14.9 x 13.0 x 14.8 cm in size. Urinary bladder extends outside the confines of the pelvis and into the lower abdomen near the level of the renal matthew. Adjacent inflammatory stranding with small perivesicular lymph nodes all measuring less than 7 mm in short axis. Prostate gland is markedly enlarged measuring 7.6 x 7.0 x 7.3 cm in size. Appendix is normal. No colonic wall thickening or pericolonic inflammatory stranding. Impression: Marked enlargement of the prostate gland with likely bladder outlet obstruction resulting in moderate bilateral hydronephrosis and hydroureter. This is presumably the etiology for the patient's renal failure with obstructive uropathy. Mcpherson catheter decompression is suggested. This document has been electronically signed by: Brodie Childs MD on 09/29/2024 23:07:18
[2024-09-29 20:09] VITALS: BP 122/61; PULSE 107; RESP 20; TEMP 36.4; O2SAT 99; BMI 27.2
--- NOTE | 2024-09-29 20:09 | ED.GENADULT ---
HPI - General Adult General Chief complaint: Recheck/Abnormal Lab/Rx Stated complaint: Kidney failure/PCP said to go right in Time Seen by Provider: 09/29/24 20:50 Source: patient Mode of arrival: ambulatory Limitations: no limitations History of Present Illness ED Provider: rosaura candelaria NP HPI narrative: Patient is a 74-year-old male past medical history of hypertension, hyperlipidemia, elevated PSA, anemia who presents emergency department by advised min of his primary care doctor. He was evaluated today due to decreased appetite, weakness, diffuse abdominal pain, and excessive belching onset about 1-2 months ago. Had outpatient labs done was told to presents emergency department due to acute renal failure. He denies the use of OTC analgesics, NSAIDs, qajk-fue-qixdmoz supplements, recreational drugs, reports no alcohol consumption for 2 months. He states that he is still urinating normally, he denies dysuria, decreased urinary volume, hematuria. Denies associated back pain. No nausea/vomiting. No fevers or chills. Related Data Home Medications ?Medication ?Instructions ?Recorded ?Confirmed famotidine 20 mg tablet (Pepcid AC) 40 mg PO BID 09/30/24 09/30/24 Previous Rx's ?Medication ?Instructions ?Recorded lisinopril 20 1 tab PO DAILY 30 days #30 tabs 08/29/24 mg-hydrochlorothiazide 12.5 mg tablet Allergies Allergy/AdvReac Type Severity Reaction Status Date / Time amoxicillin Allergy Unknown hives Verified 09/29/24 20:10 Penicillins Allergy short of Verified 09/29/24 20:10 breath Review of Systems Review of Systems: Yes all other systems are reviewed and are negative PMFSH Past Medical History Attestation statement: The following information was validated with the patient. Source: old records reviewed Medical History (Updated 09/30/24 @ 03:20 by Miguelina Palma PA-C) Hypercholesterolemia Hypertension Tennis elbow Social History Social History (Updated 08/07/24 @ 11:24 by Suzan Jolly CMA) Household Members: Spouse Housing: House Do you presently have visiting nurse or other home services: No Alcohol intake: current Alcohol intake frequency: does not drink Patient Tobacco Use Status: Former Tobacco user e-Cigarette/Vaping Use: Never Used Second Hand Smoke Exposure: No service: No Current occupational status: retired Current occupational exposures/hazards: No Cognitive needs: No Hearing needs: No Vision needs: No Physical Exam ED Vital Signs: Vital Signs - 24 hr 09/29/24 20:09 Temperature 97.6 F Pulse Rate 107 H Respiratory Rate 20 Blood Pressure 122/61 Pulse Oximetry 99 Oxygen Delivery Method Room Air BMI result Body Mass Index 27.2 Course Course Course Narrative: RME performed by Eliane Ma PA-C. Patient is a 74 year old assigned male at presenting to the emergency department with new onset kidney failure. Patient states his PCP Called and told him to come to the ER right away because of abnormal labs. Detailed physical exam and review of systems are deferred to the foreign car mechanic. EKG, labs, and swabs ordered. Patient placed back in the waiting room pending room availability and results. Reevaluation(s) Reevaluation #1: Nursing staff instructed to place Mcpherson catheter at this time. CT revealing a markedly distended bladder, markedly enlarged prostate, bilateral hydronephrosis and hydroureter. Urinalysis with microscopic hematuria, 3+ leukocyte esterase, urine WBCs but no bacteria seen, white count urine protein of 16 mg/dL, urine creatinine benign 99.62. Suspect that once relieving the bladder outlet obstruction LETI will improve greatly, re-consulting Nephrology Time: 23:11 Reevaluation #2: Nephrology advises no indication for hemodialysis at this time. Patient will recieve CA gluconate 2G IV, insulin regular 5units IV, dextrose, will repeat BMP to assure potassium is improving, continue monitor for telemetry changes, case discussed with hospitalist, pending admission to medicine service once hyperkalemia improves Medications Administered Generic Name Dose Route Start Last Admin Trade Name Chadwick PRN Reason Stop Dose Admin Sodium Chloride 1,000 mls @ 100 mls/hr 09/29/24 21:30 09/30/24 08:54 Ns IVCONT 100 mls/hr .Q10H BRAYAN Administration Pantoprazole Sodium 40 mg 09/30/24 08:45 09/30/24 09:39 Pantoprazole Sodium 40 Mg/10 Ml Vial IVPUSH 40 mg BID@0630,1630 BRAYAN Administration Sodium Bicarbonate 650 mg 09/30/24 09:30 09/30/24 09:39 Sodium Bicarbonate 650 Mg Tablet PO 650 mg QID BRAYAN Administration Sodium Chloride 3 ml 09/30/24 08:00 09/30/24 07:21 0.9 % Sodium Chloride Flush 3 Ml Syringe IVFLUSH Not Given QSHIFT BRAYAN Discontinued Medications Generic Name Dose Route Start Last Admin Trade Name Chadwick PRN Reason Stop Dose Admin Ceftriaxone Sodium 1 gm 09/30/24 03:21 09/30/24 03:49 Ceftriaxone Sodium 1 Gm Vial IVPUSH 09/30/24 03:22 1 gm ONCE ONE Administration Dextrose 25 gm 09/29/24 23:33 09/29/24 23:58 Dextrose 50 % 25 Gm/50 Ml Syringe IVPUSH 09/29/24 23:34 25 gm ONCE ONE Administration Calcium Gluconate 2 gm in 100 mls @ 50 mls/hr 09/29/24 23:33 09/30/24 02:21 Calcium Gluconate IV 09/30/24 01:32 Infused ONCE ONE Infusion Sodium Chloride 1,000 mls @ 999 mls/hr 09/30/24 05:15 09/30/24 07:21 Ns IV 09/30/24 06:15 Infused .Q1H1M BRAYAN Infusion Insulin Human Regular 5 unit 09/29/24 23:33 09/29/24 23:56 Insulin Regular, Human 100 Unit/Ml 10 Ml Vial IVPUSH 09/29/24 23:34 5 unit ONCE ONE Administration Lidocaine HCl 10 ml 09/29/24 23:16 09/29/24 23:20 Lidocaine Hcl 2 % Urojet 10 Ml Jel.Pf.Alix TOPICAL 09/29/24 23:17 10 ml ONCE ONE Administration Lidocaine HCl 20 ml 09/29/24 23:33 09/30/24 00:12 Lidocaine Hcl 2 % Urojet 10 Ml Jel.Pf.Alix TOPICAL 09/29/24 23:34 20 ml ONCE ONE Administration Lorazepam 0.5 mg 09/30/24 04:56 09/30/24 05:51 Lorazepam 0.5 Mg Tablet PO 09/30/24 04:57 0.5 mg ONCE ONE Administration Midodrine 5 mg 09/30/24 04:56 09/30/24 05:07 Midodrine Hcl 5 Mg Tablet PO 09/30/24 04:57 5 mg ONCE ONE Administration Sodium Zirconium Cyclosilicate 10 gm 09/29/24 21:21 09/29/24 21:49 Sodium Zirconium Cyclosilicate 10 Gm Powd.Pack PO 09/29/24 21:22 10 gm ONCE ONE Administration Sodium Zirconium Cyclosilicate 10 gm 09/29/24 22:21 09/29/24 22:31 Sodium Zirconium Cyclosilicate 10 Gm Powd.Pack PO 09/29/24 22:22 10 gm ONCE ONE Administration Medical Decision Making Medical Decision Making [facility] Narrative: Patient is a 74-year-old male past medical history of hypertension, hyperlipidemia, elevated PSA, anemia who presents emergency department by advised min of his primary care doctor. He was evaluated today due to decreased appetite weakness and excessive belching onset about 1 month ago. Had outpatient labs done was told to presents emergency department due to acute renal failure. On review of outpatient labs he had chemistries obtained earlier today 14:46 with a potassium of 6.1, BUN/creatinine 157/9.78, were repeated on his presentation to the emergency department at 20:25 with potassium of 6.6, BUN 161, and creatinine 10.14. No history of CKD, no prior LETI. Normal renal function in July of 2024. Magnesium is elevated at 3.2. CBC revealing a normocytic anemia, HGB 9 0.5/27.8 which is downtrending from prior in July of 2024 at 13.9/41.3. EKG revealing normal sinus rhythm with ventricular rate of 100, QTC 423, no ST elevation, peaked T-waves are present. Consulting with Nephrology. Differential Diagnosis Differential Diagnoses: The differential diagnosis associated with the presentation includes (See narrative above and below for further detail) Admission/Observation Consideration of admission/observation: Escalation of care including admission/observation considered Consult Healthcare Provider Management of the patient was discussed with: Registered Health Nurse Urology, Dr. Reeves: Agrees with CT of the abdomen and pelvis without contrast to evaluate for possible obstructive uropathy, if there is any evidence of obstruction Mcpherson catheter should be placed. Recommends normal saline IV fluid at 100 mL/hour. Lokelma 10 mg p.o. now and repeat Lokelma 10 mg p.o. and 1 hour. Obtaining urinalysis, urine protein and urine creatinine. At this time he is not advise emergent dialysis. Lab Data [facility] Lab Attestation statement: I reviewed the patient's lab results. (See narrative above) 09/30/24 08:59 09/30/24 08:59 Labs: Lab Results 09/29/24 09/29/24 09/30/24 Range/Units 20:25 22:38 01:38 WBC 11.9 H (4.8-10.8) X10*3/uL RBC 3.09 L (4.60-5.80) X10*6/uL Hgb 9.5 L (14.0-18.0) g/dl Hct 27.8 L (42.0-52.0) % MCV 90.0 (80.0-98.0) fL MCH 30.7 (27.0-33.0) pg MCHC 34.2 (31.0-36.0) g/dl RDW 12.7 (11.0-16.0) % Plt Count 243 (160-400) X10*3/uL MPV 11.3 (9.4-12.4) fL Immature Gran % (Auto) 0.6 H (0.0-0.4) % Neut % (Auto) 83.7 H (45-73) % Lymph % (Auto) 9.1 L (20-40) % [place] % (Auto) 5.4 (2-11) % Eos % (Auto) 0.9 (0-4) % Baso % (Auto) 0.3 (0-2) % Lymph # (Auto) 1.1 L (1.2-4.9) X10*3/uL [place] # (Auto) 0.6 (0.1-1.2) X10*3/uL Eos # (Auto) 0.1 (0.0-0.4) X10*3/uL Baso # (Auto) 0.0 (0.0-0.2) X10*3/uL Abs Immat Gran (auto) 0.07 H (0.00-0.03) X10*3/uL Absolute Neuts (auto) 9.9 H (2.0-8.3) x10*3/uL Absolute Nucleated RBC 0.000 (0.0-0.012) X10*3/uL Nucleated RBC % (auto) 0.0 (0.0-0.2) /100WBC ESR 105 H (0-15) MM/HR Sodium 134 L 140 (135-145) mmol/L Potassium 6.6 H* 5.7 H (3.3-5.1) mmol/L Chloride 109 H 113 H (96-108) mmol/L Carbon Dioxide 12 L 12 L (22-29) mmol/L Anion Gap 20 21 H (12-20) BUN 161 H 164 H (9-16) mg/dL Creatinine 10.14 H* 10.10 H* (0.5-1.4) mg/dL Estim Creat Clear Calc 6.6 6.6 Estimated GFR 5 5 Random Glucose 117 H 93 (60-115) mg/dL Calcium 8.8 9.6 D (8.4-10.2) mg/dL Magnesium 3.2 H (1.6-2.6) mg/dL Total Bilirubin 0.4 (0.0-1.0) mg/dL AST 27 (5-37) U/L ALT 16 (0-40) U/L Alkaline Phosphatase 50 (39-117) U/L Total Creatine Kinase 141 (38-174) U/L C-Reactive Protein 1.46 H (< or = 0.50) mg/dL Total Protein 8.3 H (6.5-8.0) g/dL Albumin 4.3 (3.5-5.0) g/dL Urine Color Yellow Urine Appearance Cloudy Urine pH 5.5 (5.0-9.0) Ur Specific [place] 1.010 (1.005-1.025) Urine Protein Trace (Neg-Trace) mg/dL Urine Glucose (UA) Negative (Negative) mg/dL Urine Ketones Negative (Negative) mg/dL Urine Blood Large (3+) H (Negative) Urine Nitrite Negative (Negative) Ur Leukocyte Esterase Large (3+) H (Negative) Urine RBC >20 H (0-2) /HPF Urine WBC >50 H (0-5) /HPF Ur Squamous Epith Cells 0-2 (0-2) /HPF Urine Bacteria None Seen (None Seen) Hyaline Casts 0-2 (0-2) /LPF U Random Total Protein 16 H (<12) mg/dL Urine Creatinine 99.62 mg/dL Influenza Type A (PCR) NEGATIVE (Negative) Influenza Type B (PCR) NEGATIVE (Negative) RSV RNA Qual (PCR) NEGATIVE (Negative) SARS-CoV-2 RNA (RT-PCR) NEGATIVE (Negative) Independent Interpretation I performed an independent interpretation of an: CT Scan (Markedly distended bladder bilateral hydronephrosis, left renal stones no appreciable ureteral calculi) Radiology Impression Discussion of test interpretation with radiology: I have reviewed the radiologist's reading. Radiologist Impression: CT abdomen: Lung bases are clear. Bones are osteopenic. No acute fracture. Dense coronary artery calcification. Stomach is decompressed. There is hyperdensity within the lumen of the stomach as well as areas of hyperdensity within the small bowel, presumably related to ingested contents. No dilated small bowel is seen. Unenhanced liver, spleen, pancreas, gallbladder, and adrenal glands are unremarkable. Moderate bilateral hydronephrosis. Moderate hydroureter is well with tortuosity of the ureters. There are small calcifications in the renal hilum on the left which I believe are vascular in nature. No collecting system calcifications are seen. [id number]-vo-hlbjmbon vascular calcification of the abdominal aorta, iliac arteries, and renal arteries. CT pelvis: Massive distention of the urinary bladder. Urinary bladder measures 14.9 x 13.0 x 14.8 cm in size. Urinary bladder extends outside the confines of the pelvis and into the lower abdomen near the level of the renal matthew. Adjacent inflammatory stranding with small perivesicular lymph nodes all measuring less than 7 mm in short axis. Prostate gland is markedly enlarged measuring 7.6 x 7.0 x 7.3 cm in size. Appendix is normal. No colonic wall thickening or pericolonic inflammatory stranding. Impression: Marked enlargement of the prostate gland with likely bladder outlet obstruction resulting in moderate bilateral hydronephrosis and hydroureter. This is presumably the etiology for the patient's renal failure with obstructive uropathy. Mcpherson catheter decompression is suggested. Independent Historian Clinical information obtained from an independent historian. History obtained from or confirmed by: Spouse External Record Review External record reviewed: Outpatient record Chronic Conditions Patient?s care impacted by: Other (See narrative above) Critical Care Time Critical Care Time Critical Care Time: Yes Total Critical Care Time: 60 Attestation: I personally attest to this critical care time spent taking care of the patient exclusive of all other billable procedures was approximately 60 minutes including initial evaluation of patient, ordering tests, CT interpretation, EKG interpretation, management of acute hyperkalemia, medical consultation, documentation, re-evaluation. Discharge Plan Discharge Clinical Impression: Acute kidney failure, Obstructive uropathy Patient Disposition: Admitted As Inpatient Interventions: Admission Worksheet (ED) Last Done: 09/30/24 07:54 Discharge Date/Time: 09/30/24 09:12
--- NOTE | 2024-09-29 20:10 | ECG_ITS ---
Test Reason : ABNORMAL LABS Blood Pressure : */* mmHG Vent. Rate : 100 BPM Atrial Rate : 100 BPM P-R Int : 166 ms QRS Dur : 96 ms QT Int : 328 ms P-R-T Axes : 46 24 33 degrees QTcB Int : 423 ms Normal sinus rhythm Normal ECG No previous ECGs available Referred By: Eliane Ma Electronically Signed By: Hernandez Moeller
[2024-09-29 20:29] LABS: MANUAL DIFF FLAG NO
[2024-09-29 20:32] LABS: Basophils Percent Auto 0.3 % (0-2); Eosinophils Absolute Auto 0.1 X10*3/uL (0.0-0.4); Eosinophils Percent Auto 0.9 % (0-4); Hematocrit 27.8 % (42.0-52.0); Hemoglobin 9.5 g/dl (14.0-18.0); Imm Gran Abs Auto 0.07 X10*3/uL (0.00-0.03); Imm Gran Pct Auto 0.6 % (0.0-0.4); Lymphocytes Absolute Auto 1.1 X10*3/uL (1.2-4.9); Lymphocytes Percent Auto 9.1 % (20-40); Mean Corpuscular HGB Conc 34.2 g/dl (31.0-36.0); Mean Corpuscular Hemoglobin 30.7 pg (27.0-33.0); Mean Platelet Volume 11.3 fL (9.4-12.4); Monocytes Absolute Auto 0.6 X10*3/uL (0.1-1.2); Monocytes Percent Auto 5.4 % (2-11); Neutrophils Absolute Auto 9.9 x10*3/uL (2.0-8.3); Neutrophils Percent Auto 83.7 % (45-73); Platelet Count 243 X10*3/uL (160-400); Red Blood Count 3.09 X10*6/uL (4.60-5.80); Red Cell Distribution Width 12.7 % (11.0-16.0); White Blood Count 11.9 X10*3/uL (4.8-10.8)
[2024-09-29 20:55] LABS: Alanine Aminotransferase 16 U/L (0-40); Albumin Level 4.3 g/dL (3.5-5.0); Alkaline Phosphatase 50 U/L (39-117); Anion Gap 20 (12-20); Aspartate Amino Transferase 27 U/L (5-37); Bilirubin Total 0.4 mg/dL (0.0-1.0); C Reactive Protein 1.46 mg/dL (< or = 0.50); Calcium 8.8 mg/dL (8.4-10.2); Carbon Dioxide 12 mmol/L (22-29); Chloride 109 mmol/L (96-108); Creatinine Clr Calc Pharmacy 6.6; Estimated Glomerular Filt Rate 5; Glucose Random 117 mg/dL (60-115); Magnesium 3.2 mg/dL (1.6-2.6); Potassium 6.6 mmol/L (3.3-5.1); Sodium 134 mmol/L (135-145); Total Protein 8.3 g/dL (6.5-8.0)
[2024-09-29 20:58] LABS: Blood Urea Nitrogen 161 mg/dL (9-16)
[2024-09-29 21:07] LABS: Influenza A PCR NEGATIVE (Negative); Influenza B PCR NEGATIVE (Negative); Resp Syncy Virus RNA Qual PCR NEGATIVE (Negative); SARS COV2 PCR INHOUSE NEGATIVE (Negative)
[2024-09-29 21:15] LABS: Erythrocyte Sedimentation Rate 105 MM/HR (0-15)
[2024-09-29] MEDS: 0.9 % Sodium Chloride 1,000 ML 100 ML IVCONT (21:47)
[2024-09-29] MEDS: Sodium Zirconium Cyclosilicate 10 GM POWD.PACK PO ×2 (21:49→22:31)
--- NOTE | 2024-09-29 21:51 | PC.NURSE ---
medicated per mar.
--- NOTE | 2024-09-29 22:42 | PC.NURSE ---
ua collected and sent.
[2024-09-29 22:56] LABS: Appearance Urine Cloudy; Color Urine Yellow; Glucose Urine UA Negative (Negative); Leukocyte Esterase Urine Large (3+) (Negative); Nitrite Urine Negative (Negative); PH 5.5 (5.0-9.0); UMIC TRIGGER UACC YES; Urine Blood Large (3+) (Negative); Urine Ketones Negative (Negative); Urine Protein Trace mg/dL (Neg-Trace)
[2024-09-29 22:58] LABS: Bacteria Urine None Seen (None Seen); Hyaline Casts Urine 0-2 /LPF (0-2); RBC Urine >20 /HPF (0-2); Squamous Epithelial Cell Urine 0-2 /HPF (0-2); UACC Culture Trigger YES; WBC Urine >50 /HPF (0-5)
[2024-09-29 23:10] LABS: Creatinine Urine 99.62 mg/dL; Total Protein Urine Random 16 mg/dL (<12)
[2024-09-29] MEDS: Lidocaine HCl 2 % Urojet 10 ML JEL.PF.APP TOPICAL (23:20)
[2024-09-29] MEDS: Insulin Regular, Human 100 UNIT/ML 10 ML VIAL IVPUSH (23:56)
[2024-09-29] MEDS: Dextrose 50 % 25 GM/50 ML SYRINGE IVPUSH (23:58)
[2024-09-30] VITALS (13 sets, daily range): BP systolic 84–113; BP diastolic 40–62; PULSE 91–100; RESP 12–20; TEMP 36.4–37.1; O2SAT 98–100
[2024-09-30] MEDS: Calcium Gluconate/NaCl,Iso-Osm 2 GM/100 ML PLAST..BAG IV ×2 (00:01→12:06)
[2024-09-30] MEDS: Lidocaine HCl 2 % Urojet 10 ML JEL.PF.APP 20 ML TOPICAL (00:12)
--- NOTE | 2024-09-30 00:13 | PC.NURSE ---
Mcpherson placed by Dr. Tenorio, pt medicated per oct, coude catheter
[2024-09-30 02:12] LABS: Anion Gap 21 (12-20); Blood Urea Nitrogen 164 mg/dL (9-16); Calcium 9.6 mg/dL (8.4-10.2); Carbon Dioxide 12 mmol/L (22-29); Chloride 113 mmol/L (96-108); Creatinine Clr Calc Pharmacy 6.6; Estimated Glomerular Filt Rate 5; Glucose Random 93 mg/dL (60-115); Potassium 5.7 mmol/L (3.3-5.1); Sodium 140 mmol/L (135-145)
--- NOTE | 2024-09-30 02:57 | P.HPHOSP_ITS ---
History of Present Illness Date of Service: 09/30/24 Attending physician on admission: Sy Dolan Chief Complaint: abnormal labs, abida Patient is a 74-year-old male with a past medical history significant for HTN and BPH, presented to the ED today due to abnormal labs found by his PCP as well as generalized weakness. Labs showed significant hyperkalemia and LETI. He reports that he had recently increased his dose of famotidine to 40 mg daily and noticed urinary retention. He denies any hematuria, dysuria, frequency or urgency prior to the catheter being placed in the ED. He is now having urethral discomfort as well as hematuria. He also reports that he was having abdominal bloating, discomfort and gas pains. A lot of his symptoms have resolved since having the catheter placed in the ED. he denies any additional symptoms including headache, sore throat, congestion, cough, chest pain, shortness of breath or lower extremity edema. Labs were also significant for anemia, the patient reports that he has never been anemic before and denies any bleeding sources including melena or rectal bleeding. Review of Systems 2 Constitutional: Constitutional: Denies body ache(s), Denies chills, Reports fatigue, Denies fever(s) and Denies headache(s) Eyes: Eyes: Denies change in vision and Denies photophobia ENT: Denies headache(s), Denies nasal congestion, Denies nasal discharge and Denies sore throat Cardiovascular: Cardiovascular: Denies chest pain, Denies rapid heart rate, Denies leg edema, Denies lightheadedness and Denies dyspnea Respiratory: Respiratory: Denies chest congestion, Denies cough, Denies dyspnea and Denies wheezing Gastrointestinal: Gastrointestinal: Denies melena, Denies hematochezia, Denies constipation, Denies diarrhea, Denies nausea and Denies vomiting Genitourinary: Genitourinary: Reports as per HPI Musculoskeletal: Musculoskeletal: Reports as per HPI Integumentary/Breasts: Skin/Breast: Denies rash Neurologic: Denies confusion and Denies headache(s) Psychiatric: Psychiatric: Denies confusion Endocrine: Endocrine: Reports fatigue Hematologic/Lymphatic: Hematologic/Lymphatic: Denies easy bleeding and Denies easy bruising Allergic/Immunologic: Allergic/Immunologic: Denies wheezing [facility] Medical History (Updated 09/30/24 @ 03:20 by Miguelina Palma PA-C) Hypercholesterolemia Hypertension Tennis elbow Functional capacity: independent ambulation Social History (Updated 08/07/24 @ 11:24 by Suzan Jolly CMA) Housing: House Alcohol intake: current Alcohol intake frequency: does not drink Patient Tobacco Use Status: Former Tobacco user Smoked in Last 30 Days: No e-Cigarette/Vaping Use: Never Used Second Hand Smoke Exposure: No Use of substances other than those prescribed or required for medical reasons: No Advance Directives: No Advance Directives Information Provided: No service: No Current occupational status: retired Current occupational exposures/hazards: No Cognitive needs: No Hearing needs: No Vision needs: No Narrative: No smoking, alcohol or drug use Meds Allergies Allergy/AdvReac Type Severity Reaction Status Date / Time amoxicillin Allergy Unknown hives Verified 09/29/24 20:10 Penicillins Allergy short of Verified 09/29/24 20:10 breath Active Medications: Current Medications Acetaminophen (Acetaminophen 325 Mg Tablet) 975 mg PO Q6H PRN PRN Reason: Pain, Mild 1-3,fever,headache Calcium Carbonate (Calcium Carbonate 750 Mg Tab.Chew) 750 mg PO Q4H PRN PRN Reason: Heartburn Hydroxyzine HCl (Hydroxyzine Hcl 25 Mg Tablet) 25 mg PO Q6H PRN PRN Reason: Anxiety Sodium Chloride (Ns) 1,000 mls @ 100 mls/hr IVCONT .Q10H [facility] Last Admin: 09/29/24 21:47 Dose: 100 mls/hr Magnesium Hydroxide (Milk Of Magnesia 30 Ml Oral.Susp) 30 ml PO DAILY PRN PRN Reason: Constipation Melatonin (Melatonin 3 Mg Tablet) 6 mg PO BEDTIME PRN PRN Reason: Insomnia Ondansetron HCl (Ondansetron Hcl 4 Mg/2 Ml Vial) 4 mg IVPUSH Q8H PRN PRN Reason: Nausea and Vomiting Polyethylene Glycol (Polyethylene Glycol 3350 17 Gm Powd.Pack) 17 gm PO DAILY PRN PRN Reason: Constipation Sodium Chloride (0.9 % Sodium Chloride Flush 3 Ml Syringe) 3 ml IVFLUSH QSHIFT [facility] Physical Exam 2 Vital Signs and Narrative: Vital Signs: Last Vital Signs Temp 97.6 F 09/29/24 20:09 Pulse 107 H 09/29/24 20:09 Resp 20 09/29/24 20:09 BP 122/61 09/29/24 20:09 Pulse Ox 99 02/03/25 20:09 O2 Del Method Room Air 09/29/24 20:09 BMI result Body Mass Index 27.2 General: AOx3, no acute distress Resp: CTA bilaterally CVS: S1, S2, RRR GI: +BS, NT, no distention Skin: Warm, dry Neuro: Cranial nerves II-XII grossly intact bilaterally. Motor grossly intact bilaterally Extremities: No LE edema Psych: Appropriate affect Const: General: No confusion Orientation/consciousness: No confusion Eyes: Direct Ophthalmoscopy: No photophobia Neuro: General: No confusion Results Labs 09/29/24 20:25 09/30/24 01:38 Labs: Laboratory Results - last 24 hr 09/29/24 09/29/24 09/30/24 20: 22:38 01:38 MCV 90.0 MCH 30.7 MCHC 34.2 RDW 12.7 Plt Count 243 MPV 11.3 Immature Gran % (Auto) 0.6 H Neut % (Auto) 83.7 H Lymph % (Auto) 9.1 L [place] % (Auto) 5.4 Eos % (Auto) 0.9 Baso % (Auto) 0.3 Lymph # (Auto) 1.1 L [place] # (Auto) 0.6 Eos # (Auto) 0.1 Baso # (Auto) 0.0 Abs Immat Gran (auto) 0.07 H Absolute Neuts (auto) 9.9 H Absolute Nucleated RBC 0.000 Nucleated RBC % (auto) 0.0 ESR 105 H Anion Gap 20 21 H Estim Creat Clear Calc 6.6 6.6 Estimated GFR 5 5 Random Glucose 117 H 93 Calcium 8.8 9.6 D Magnesium 3.2 H Total Bilirubin 0.4 AST 27 ALT 16 Alkaline Phosphatase 50 Total Creatine Kinase 141 C-Reactive Protein 1.46 H Total Protein 8.3 H Albumin 4.3 Urine Color Yellow Urine Appearance Cloudy Urine pH 5.5 Ur Specific [place] 1.010 Urine Protein Trace Urine Glucose (UA) Negative Urine Ketones Negative Urine Blood Large (3+) H Urine Nitrite Negative Ur Leukocyte Esterase Large (3+) H Urine RBC >20 H Urine WBC >50 H Ur Squamous Epith Cells 0-2 Urine Bacteria None Seen Hyaline Casts 0-2 U Random Total Protein 16 H Urine Creatinine 99.62 Influenza Type A (PCR) NEGATIVE Influenza Type B (PCR) NEGATIVE RSV RNA Qual (PCR) NEGATIVE SARS-CoV-2 RNA (RT-PCR) NEGATIVE Assessment and Plan (1) LETI (acute kidney injury): Status: Acute (2) Hyperkalemia: Status: Acute (3) Bladder outlet obstruction: Status: Acute (4) Hydroureteronephrosis: Status: Acute (5) UTI (urinary tract infection): Status: Acute (6) Anemia: Status: Acute Plan Patient is a 74-year-old male with a past medical history significant for HTN and BPH, presented to the ED today due to abnormal labs found by his PCP as well as generalized weakness. Labs significant for LETI, hyperkalemia and anemia. LETI with subsequent hyperkalemia and hydoureteronpehorisis secondary to bladder outlet obstruction - WBC 11.9 (reactive vs infectious), mild tachycardia (likely due to hyperkalemia), no sepsis - UA with >50 WBCs, no bacteria, culture pending - A/P CT with marked enlargement of the prostate gland with likely bladder outlet obstruction resulting in moderate bilateral hydro ureteral nephrosis, likely the etiology of renal failure with obstructive uropathy - creatinine 10.10 - price placed in ED with difficulty, but good urine output - urology and nephrology consult - start ceftriaxone 1g QD for possible UTI - K 6.1, then 6.6, then 5.7 - EKG with peaked T waves - given 1L NS, lokelma 20g total, insulin 5U, dextrose 25mg and calcium 2g in ED - monitor CBC and BMP - admit to med tele anemia, normocytic, likley of chronic disease - hemoglobin 9.5, hematocrit 27.8, was 13.9/41.3 2 months ago - no obvious bleeding sources or need for blood transfusion at this time - check fecal occult blood - monitor CBC HTN - hold lisinopril due to LETI med rec not complete upon admission full code VTE prophy: pneumoboots due to anemia and hematuria Pt with LETI, hyperkalemia, bladder outlet obstruction, UTI and acute anemia, requiring admission for further treatment including IV abx and monitoring for at least 2 midnights stay. Quality Stroke Does the patient have a stroke diagnosis?: No VTE Prior VTE?: No VTE Risk Level:: Medical - moderate - high VTE Device Contraindication: N/A - Device Ordered VTE Drug Contraindication: Treatment Not Indicated
[2024-09-30] MEDS: cefTRIAXone sodium 1 GM VIAL IVPUSH (03:49)
--- NOTE | 2024-09-30 04:04 | PC.NURSE ---
Notified provider of low bp and increase blood in the urine.
--- NOTE | 2024-09-30 04:06 | PC.NURSE ---
lactic and blood cultures ordered after antibiotic per provider.
[2024-09-30 04:23] LABS: Basophils Percent Auto 0.3 % (0-2); Eosinophils Absolute Auto 0.2 X10*3/uL (0.0-0.4); Eosinophils Percent Auto 1.6 % (0-4); Hematocrit 22.9 % (42.0-52.0); Hemoglobin 7.8 g/dl (14.0-18.0); Imm Gran Abs Auto 0.05 X10*3/uL (0.00-0.03); Imm Gran Pct Auto 0.5 % (0.0-0.4); Lymphocytes Percent Auto 10.4 % (20-40); MANUAL DIFF FLAG NO; Mean Corpuscular HGB Conc 34.1 g/dl (31.0-36.0); Mean Corpuscular Volume 90.9 fL (80.0-98.0); Mean Platelet Volume 11.7 fL (9.4-12.4); Monocytes Absolute Auto 0.6 X10*3/uL (0.1-1.2); Monocytes Percent Auto 6.6 % (2-11); Neutrophils Absolute Auto 7.7 x10*3/uL (2.0-8.3); Neutrophils Percent Auto 80.6 % (45-73); Platelet Count 214 X10*3/uL (160-400); Red Blood Count 2.52 X10*6/uL (4.60-5.80); Red Cell Distribution Width 12.7 % (11.0-16.0); White Blood Count 9.5 X10*3/uL (4.8-10.8)
[2024-09-30 04:38] LABS: Lactic Acid 1.3 mmol/L (0.5-2.0)
[2024-09-30 04:41] LABS: Anion Gap 20 (12-20); Calcium 9.1 mg/dL (8.4-10.2); Carbon Dioxide 10 mmol/L (22-29); Chloride 114 mmol/L (96-108); Creatinine Clr Calc Pharmacy 6.8; Estimated Glomerular Filt Rate 5; Glucose Random 146 mg/dL (60-115); Potassium 5.4 mmol/L (3.3-5.1); Sodium 139 mmol/L (135-145)
[2024-09-30 04:50] LABS: Blood Urea Nitrogen 164 mg/dL (9-16)
--- NOTE | 2024-09-30 04:58 | PM.EVENT ---
Event Note Date of Service: 09/30/24 Event Note: pt mildly hypotensive and H+H dropping, 9.5 to 7.8 and continued gross hematuria without clots. fluids may be contributing to drop as well. CBI not needed at this time as price is draining ok. labs also with low bicarb and persistently elevated creatinine. nephro consult is in as well as urology. lactic acid normal, WBC improved to 9.5 from 11.9, not sepsis. hypotension likely due to anemia. plan: - 1U PRBC, consent reviewed and given by pt with Dr Dolan bedside - midodrine 5mg PO x1 to help increase BP - ativan 0.5mg PO for anxiety and to help with sleep as pt states he has not slept in 24 hours - nephrology and urology consult as above Time Spent With Patient Time: Total time managing care of this patient today ____ minutes.
[2024-09-30] MEDS: Midodrine HCl 5 MG TABLET PO (05:07)
[2024-09-30] MEDS: 0.9 % Sodium Chloride 1,000 ML 999 ML IV (05:18)
--- NOTE | 2024-09-30 05:28 | PC.NURSE ---
per Dr. Dolan, okay to give Midodrine, hold for 30min Ativan until blood pressure comes up. Dr. Dolan at the bedside to discuss plan of care and get consent for blood.
[2024-09-30] MEDS: LORazepam 0.5 MG TABLET PO (05:51)
--- NOTE | 2024-09-30 07:37 | PC.NURSE ---
Pt is alert/oriented. PRBC infusing at this time. at bedside. Pt reports pain to tip of penis when moving legs and positional changes but denies and abd pain/pressure. Mcpherson appears to be draining, bloody output, no clots noted. Emptied for 600ml. VSS with BP soft as charted. NSR on tele. Skin pwd. IV reinforced. Sat 100% on room air, breathing easy. Awaits bed assgn and consults. Declines breakfast tray at this time but request earnestine isabela and given. Pain 6/10 to mid back s/p fall.
--- NOTE | 2024-09-30 07:44 | PC.NURSE ---
Pharmacy notified of med rec needed
[2024-09-30] MEDS: 0.9 % Sodium Chloride 1,000 ML 100 ML IVCONT (08:54)
[2024-09-30 09:06] LABS: Venous Blood Gas Refer to POC result
--- NOTE | 2024-09-30 09:06 | PHA.MEDREC ---
Addendum entered by Basim Guy 09/30/24 09:31: reviewed Original Note: Pharmacy Consult ? Medication Reconciliation Pharmacy has completed the medication reconciliation. Spoke to patient and at bedside to confirm med list.
[2024-09-30 09:07] LABS: Hematocrit 24.4 % (42.0-52.0); Hemoglobin 8.2 g/dl (14.0-18.0)
[2024-09-30 09:09] LABS: VBG Base Excess -13.5 mmol/L; VBG HCO3 11 mmol/L (22-26); VBG pCO2 22 mmHg; VBG pH 7.29 (7.32-7.43); VBG pO2 40 mmHg
--- NOTE | 2024-09-30 09:29 | MHC.CM.PN ---
Addendum entered by Vanessa Meng 09/30/24 09:45: Patient has completed a HCP naming his as his Agent. Original Note: CM met with Patient and his /Phoebe at bedside and addressed IMM with him, providing Patient with the original and a copy has been placed on the chart. Patient lives in a house with his and he required no services nor DME MANAGER ER. Home/self care is Patient's goal and CM has initiated and will follow for dc planning. PCP is Dr. Nathan Ferrell and will transport to home.
[2024-09-30] MEDS: Pantoprazole Sodium 40 MG/10 ML VIAL IVPUSH ×2 (09:39→17:48)
[2024-09-30] MEDS: Sodium Bicarbonate 650 MG TABLET PO (09:39)
--- NOTE | 2024-09-30 09:44 | PM.CNNEP ---
History of Present Illness Reason for Consult Consult date: 09/30/24 Reason for consult: LETI and hyperkalemia Chief Complaint Chief complaint: LETI, hyperkalemia, anemia History of Present Illness Narrative: 74-year-old male with a past medical history significant for HTN and BPH, presented to the ED today due to abnormal labs found by his PCP as well as generalized weakness. Labs showed significant hyperkalemia and LETI. He reports that he had recently increased his dose of famotidine to 40 mg daily and noticed urinary retention. He denies any hematuria, dysuria, frequency or urgency prior to the catheter being placed in the ED. He is now having urethral discomfort as well as hematuria. He also reports that he was having abdominal bloating, discomfort and gas pains. A lot of his symptoms have resolved since having the catheter placed in the ED Spoke to ER team/ Caren Baseline renal function has been normal around 0.9-1.2 mg/dL few months ago. [facility] Past Medical History Medical History (Updated 09/30/24 @ 03:20 by Miguelina Palma PA-C) Hypercholesterolemia Hypertension Tennis elbow Social History Social History (Updated 08/07/24 @ 11:24 by Suzan Jolly CMA) Household Members: Spouse Housing: House Do you presently have visiting nurse or other home services: No Alcohol intake: current Alcohol intake frequency: does not drink Patient Tobacco Use Status: Former Tobacco user e-Cigarette/Vaping Use: Never Used Second Hand Smoke Exposure: No service: No Current occupational status: retired Current occupational exposures/hazards: No Cognitive needs: No Hearing needs: No Vision needs: No Meds Allergies Allergy/AdvReac Type Severity Reaction Status Date / Time amoxicillin Allergy Unknown hives Verified 09/29/24 20:10 Penicillins Allergy short of Verified 09/29/24 20:10 breath Active Medications: Current Medications Acetaminophen (Acetaminophen 325 Mg Tablet) 975 mg PO Q6H PRN PRN Reason: Pain, Mild 1-3,fever,headache Calcium Carbonate (Calcium Carbonate 750 Mg Tab.Chew) 750 mg PO Q4H PRN PRN Reason: Heartburn Hydroxyzine HCl (Hydroxyzine Hcl 25 Mg Tablet) 25 mg PO Q6H PRN PRN Reason: Anxiety Sodium Chloride (Ns) 1,000 mls @ 100 mls/hr IVCONT .Q10H [facility] Last Admin: 09/30/24 08:54 Dose: 100 mls/hr Magnesium Hydroxide (Milk Of Magnesia 30 Ml Oral.Susp) 30 ml PO DAILY PRN PRN Reason: Constipation Melatonin (Melatonin 3 Mg Tablet) 6 mg PO BEDTIME PRN PRN Reason: Insomnia Ondansetron HCl (Ondansetron Hcl 4 Mg/2 Ml Vial) 4 mg IVPUSH Q8H PRN PRN Reason: Nausea and Vomiting Pantoprazole Sodium (Pantoprazole Sodium 40 Mg/10 Ml Vial) 40 mg IVPUSH BID@0630,1630 [facility] Last Admin: 09/30/24 09:39 Dose: 40 mg Polyethylene Glycol (Polyethylene Glycol 3350 17 Gm Powd.Pack) 17 gm PO DAILY PRN PRN Reason: Constipation Sodium Bicarbonate (Sodium Bicarbonate 650 Mg Tablet) 650 mg PO QID [facility] Last Admin: 09/30/24 09:39 Dose: 650 mg Sodium Chloride (0.9 % Sodium Chloride Flush 3 Ml Syringe) 3 ml IVFLUSH QSHIFT [facility] Last Admin: 09/30/24 07:21 Dose: Not Given Home Medications ?Medication ?Instructions ?Recorded ?Confirmed ?Last Taken ?Type famotidine 20 mg tablet (Pepcid AC) 40 mg PO BID 09/30/24 09/30/24 09/29/24 History Physical Exam Vital Signs: Last Vital Signs Temp 97.8 F 09/30/24 09:41 Pulse 93 09/30/24 09:41 Resp 18 09/30/24 09:41 BP 90/60 09/30/24 09:41 Pulse Ox 100 09/30/24 09:41 O2 Del Method Room Air 09/30/24 09:41 BMI result Body Mass Index 27.2 Comfortable Neck supple no JVD. Lungs entry equal no rales. Heart S1-S2 heard no gallop or rub. Abdomen soft nontender. Neuro alert awake oriented. No asterixis. Extremities no edema. Results Lab Results 09/30/24 08:59 09/30/24 08:59 Lab results: Chemistry 09/29/24 09/30/24 09/30/24 20:25 01:38 04:16 Sodium 134 L 140 139 Potassium 6.6 H* 5.7 H 5.4 H Carbon Dioxide 12 L 12 L 10 L* BUN 161 H 164 H 164 H Creatinine 10.14 H* 10.10 H* 9.78 H* Calcium 8.8 9.6 D 9.1 Hematology 09/29/24 09/30/24 09/30/24 20:25 04:16 08:59 WBC 11.9 H 9.5 Hgb 9.5 L 7.8 L 8.2 L Plt Count 243 214 Urinalysis 09/29/24 22:38 Urine Color Yellow Urine Appearance Cloudy Urine pH 5.5 Ur Specific [place] 1.010 Urine Protein Trace Urine Glucose (UA) Negative Urine Ketones Negative Urine Blood Large (3+) H Urine Nitrite Negative Ur Leukocyte Esterase Large (3+) H Urine RBC >20 H Urine WBC >50 H Ur Squamous Epith Cells 0-2 Hyaline Casts 0-2 Urine Studies 09/29/24 22:38 Urine Creatinine 99.62 Assessment and Plan (1) LETI (acute kidney injury): Status: Acute Plan LETI due to obstructive uropathy from bladder neck obstruction. Currently has Mcpherson catheter. Nonoliguric. Obtain Urology evaluation. Match intake with output. Hyperkalemia due to LETI. Potassium is improving with local. With diuresis potassium should normalize. Procedures Date of Service Date of Service: 09/30/24
[2024-09-30 10:14] LABS: Anion Gap 18 (12-20); Calcium 8.5 mg/dL (8.4-10.2); Carbon Dioxide 11 mmol/L (22-29); Chloride 116 mmol/L (96-108); Creatinine Clr Calc Pharmacy 7.4; Estimated Glomerular Filt Rate 6; Glucose Random 147 mg/dL (60-115); Iron 107 mcg/dL (45-160); Percent Iron Saturation 69 % (15-50); Potassium 6.1 mmol/L (3.3-5.1); Sodium 139 mmol/L (135-145); Total Iron Binding Capacity 156 mcg/dL (228-428); Unsaturated Iron Binding 49 ug/dL
[2024-09-30 10:21] LABS: Folate 8.3 ng/mL (> or = 4.0); Vitamin B12 588 pg/mL (200-900)
[2024-09-30 10:28] LABS: Blood Urea Nitrogen 150 mg/dL (9-16)
[2024-09-30 10:41] LABS: Ferritin 1864 ng/mL (20-250)
[2024-09-30 11:28] LABS: OBS Int Ctl Valid YES; OBS1 NEGATIVE (NEGATIVE)
[2024-09-30] MEDS: Sodium Zirconium Cyclosilicate 10 GM POWD.PACK PO (12:04)
[2024-09-30] MEDS: Acetaminophen 325 MG TABLET 975 MG PO ×2 (12:05→21:31)
[2024-09-30] MEDS: Lidocaine 4 % Patch ADH..PATCH 1 PATCH TRANSDERMA (12:08)
[2024-09-30] MEDS: Insulin Regular, Human 100 UNIT/ML 10 ML VIAL IVPUSH (12:21)
[2024-09-30] MEDS: Sodium Bicarbonate 8.4% 150 MEQ in Dextrose 5 % 850 ML 100 MEQ IV (14:33)
--- NOTE | 2024-09-30 14:50 | MHC.CM.PN ---
PT is recommending home with services; CM will follow.
[2024-09-30 15:07] LABS: Glucose, Whole Blood 212 mg/dL (60-115)
--- NOTE | 2024-09-30 15:54 | PM.EVENT ---
Event Note Date of Service: 09/30/24 Event Note: This patient is seen and examined by hospitalist service this morning Seen and examined again Says abdominal pain improving Has hematuria Physical exam and assessment and plan coordinated in APCs note, Agree with the plan in addition: leti /hyperkalemia /obstructive uropathy vbg: shows ph 7.29 bmp potassium 6.1 , bun cr improving from 164/10.1 to 150/9 anion gap 18(normal) plan nephrology eval noted -LETI due to obstructive uropathy from bladder neck obstruction. Currently has Mcpherson catheter. non oligiuric given another rounds of calcium gluconate ,loklema ,dextrose/insulin ,also started on bicarb drip considering low ph and hyperkalemia moniter for bmp and hematuria urology eval for Leti due to obstructive uropathy from bladder neck obstruction. anemia of acute blood loss -has hematuria denies any melena or bleeding in stool iron studies fine s/p 1prbc h/h 8.2/24.4 patient management d/w family at bedside mr shaista tyler kerry. Time Spent With Patient Time: Total time managing care of this patient today ____ minutes.
[2024-09-30 16:49] LABS: Anion Gap 17 (12-20); Calcium 8.7 mg/dL (8.4-10.2); Carbon Dioxide 13 mmol/L (22-29); Chloride 113 mmol/L (96-108); Creatinine Clr Calc Pharmacy 7.5; Estimated Glomerular Filt Rate 6; Glucose Random 168 mg/dL (60-115); Potassium 5.4 mmol/L (3.3-5.1); Sodium 138 mmol/L (135-145)
[2024-09-30 17:25] LABS: Blood Urea Nitrogen 143 mg/dL (9-16)
[2024-09-30] MEDS: 0.9 % Sodium Chloride Flush 3 ML SYRINGE IVFLUSH ×2 (17:49→21:33)
[2024-09-30 21:17] LABS: Anion Gap 22 (12-20); Calcium 8.1 mg/dL (8.4-10.2); Carbon Dioxide 12 mmol/L (22-29); Chloride 110 mmol/L (96-108); Glucose Random 150 mg/dL (60-115); Potassium 5.2 mmol/L (3.3-5.1); Sodium 139 mmol/L (135-145)
[2024-09-30 21:19] LABS: Creatinine Clr Calc Pharmacy 7.6; Estimated Glomerular Filt Rate 6
[2024-09-30 21:26] LABS: Blood Urea Nitrogen 140 mg/dL (9-16)
[2024-10-01] VITALS (16 sets, daily range): BP systolic 90–124; BP diastolic 48–71; PULSE 87–98; RESP 14–20; TEMP 36.4–37.2; O2SAT 98–100
[2024-10-01] MEDS: Sodium Bicarbonate 8.4% 150 MEQ in Dextrose 5 % 850 ML 100 MEQ IV (00:04)
[2024-10-01] MEDS: Pantoprazole Sodium 40 MG/10 ML VIAL IVPUSH ×2 (06:14→15:50)
[2024-10-01 07:10] LABS: MANUAL DIFF FLAG NO
[2024-10-01 07:16] LABS: Basophils Percent Auto 0.3 % (0-2); Eosinophils Absolute Auto 0.2 X10*3/uL (0.0-0.4); Eosinophils Percent Auto 1.4 % (0-4); Imm Gran Abs Auto 0.08 X10*3/uL (0.00-0.03); Imm Gran Pct Auto 0.7 % (0.0-0.4); Lymphocytes Percent Auto 8.8 % (20-40); Mean Corpuscular HGB Conc 35.9 g/dl (31.0-36.0); Mean Corpuscular Hemoglobin 32.4 pg (27.0-33.0); Mean Corpuscular Volume 90.2 fL (80.0-98.0); Mean Platelet Volume 12.4 fL (9.4-12.4); Monocytes Absolute Auto 0.8 X10*3/uL (0.1-1.2); Monocytes Percent Auto 7.4 % (2-11); Neutrophils Absolute Auto 8.9 x10*3/uL (2.0-8.3); Neutrophils Percent Auto 81.4 % (45-73); Platelet Count 149 X10*3/uL (160-400); Red Blood Count 1.73 X10*6/uL (4.60-5.80); White Blood Count 10.9 X10*3/uL (4.8-10.8)
[2024-10-01 07:29] LABS: Anion Gap 16 (12-20); Carbon Dioxide 18 mmol/L (22-29); Chloride 107 mmol/L (96-108); Potassium 4.2 mmol/L (3.3-5.1); Sodium 137 mmol/L (135-145)
[2024-10-01 07:30] LABS: Calcium 7.8 mg/dL (8.4-10.2); Creatinine Clr Calc Pharmacy 7.6; Estimated Glomerular Filt Rate 6; Glucose Random 140 mg/dL (60-115)
[2024-10-01 07:32] LABS: Hematocrit 15.6 % (42.0-52.0); Hemoglobin 5.6 g/dl (14.0-18.0)
[2024-10-01] MEDS: Docusate Sodium 100 MG CAPSULE PO (08:32)
[2024-10-01] MEDS: Lidocaine 4 % Patch ADH..PATCH 1 PATCH TRANSDERMA (08:32)
[2024-10-01] MEDS: 0.9 % Sodium Chloride Flush 3 ML SYRINGE IVFLUSH ×3 (08:33→21:40)
--- NOTE | 2024-10-01 08:38 | PM.UROCN ---
History of Present Illness Consult details Consult date: 10/01/24 Narrative: CC: Urinary retention with acute renal failure 74-year-old male Past medical history significant for BPH Refer to emergency room after lab work showed acute renal failure with PCP Had noticed increased difficulty with urination and urinary retention for prior 24 hours Imaging performed - Marked enlargement of the prostate gland with likely bladder outlet obstruction resulting in moderate bilateral hydronephrosis and hydroureter. This is presumably the etiology for the patient's renal failure with obstructive uropathy. Lab work- initial creatinine 10 Mcpherson catheter placed - 2500 cc output Recommend catheter to remain to drainage, repeat renal ultrasound 48 hours after catheter placement to examined for resolution of hydro uretero nephrosis Start finasteride and doxazosin 4 mg Four week follow-up outpatient urology with repeat creatinine for cystoscopy and voiding trial. Review of Systems Constitutional: Constitutional: Reports as per HPI and Reports no additional constitutional complaints Cardiovascular: Cardiovascular: Reports as per HPI and Reports no additional cardiovascular complaints Respiratory: Respiratory: Reports as per HPI and Reports no additional respiratory complaints Gastrointestinal: Gastrointestinal: Reports as per HPI and Reports no additional gastrointestinal complaints Genitourinary: Genitourinary: Reports as per HPI Musculoskeletal: Musculoskeletal: Reports no additional musculoskeletal complaints and Reports as per HPI Neurologic: Reports system reviewed and no additional complaints, except as documented and Reports as per HPI [facility] Past Medical History Medical History (Updated 09/30/24 @ 03:20 by Miguelina Palma PA-C) Hypercholesterolemia Hypertension Tennis elbow Social History Social History (Updated 08/07/24 @ 11:24 by uSzan Jolly CMA) Household Members: Spouse Housing: House Do you presently have visiting nurse or other home services: No Alcohol intake: current Alcohol intake frequency: does not drink Patient Tobacco Use Status: Former Tobacco user e-Cigarette/Vaping Use: Never Used Second Hand Smoke Exposure: No service: No Current occupational status: retired Current occupational exposures/hazards: No Cognitive needs: No Hearing needs: No Vision needs: No Meds Allergies Allergy/AdvReac Type Severity Reaction Status Date / Time amoxicillin Allergy Unknown hives Verified 09/29/24 20:10 Penicillins Allergy short of Verified 09/29/24 20:10 breath Active Medications: Current Medications Acetaminophen (Acetaminophen 325 Mg Tablet) 975 mg PO Q6H [facility] Last Admin: 10/01/24 04:03 Dose: Not Given Calcium Carbonate (Calcium Carbonate 750 Mg Tab.Chew) 750 mg PO Q4H PRN PRN Reason: Heartburn Docusate Sodium (Docusate Sodium 100 Mg Capsule) 100 mg PO BID REPLACED BY [facility] Last Admin: 10/01/24 08:32 Dose: 100 mg Hydromorphone HCl (Hydromorphone Hcl 0.5 Mg/0.5 Ml Syringe) 0.5 mg IVPUSH Q4H PRN; Protocol PRN Reason: Pain, Severe (Pain Scale 7-10) Hydroxyzine HCl (Hydroxyzine Hcl 25 Mg Tablet) 25 mg PO Q6H PRN PRN Reason: Anxiety Sodium Bicarbonate 150 meq/ (Dextrose) 1,000 mls @ 100 mls/hr IV .Q10H REPLACED BY [facility] Last Admin: 10/01/24 00:04 Dose: 100 mls/hr Lidocaine (Lidocaine 4 % Patch Adh..Patch) 1 patch TRANSDERMA DAILY REPLACED BY [facility]; Protocol Last Admin: 10/01/24 08:32 Dose: 1 patch Magnesium Hydroxide (Milk Of Magnesia 30 Ml Oral.Susp) 30 ml PO DAILY PRN PRN Reason: Constipation Melatonin (Melatonin 3 Mg Tablet) 6 mg PO BEDTIME PRN PRN Reason: Insomnia Ondansetron HCl (Ondansetron Hcl 4 Mg/2 Ml Vial) 4 mg IVPUSH Q8H PRN PRN Reason: Nausea and Vomiting Pantoprazole Sodium (Pantoprazole Sodium 40 Mg/10 Ml Vial) 40 mg IVPUSH BID@0630,1630 REPLACED BY [facility] Last Admin: 10/01/24 06:14 Dose: 40 mg Polyethylene Glycol (Polyethylene Glycol 3350 17 Gm Powd.Pack) 17 gm PO DAILY PRN PRN Reason: Constipation Sodium Chloride (0.9 % Sodium Chloride Flush 3 Ml Syringe) 3 ml IVFLUSH QSHIFT REPLACED BY [facility] Last Admin: 10/01/24 08:33 Dose: 3 ml Home Medications ?Medication ?Instructions ?Recorded ?Confirmed ?Last Taken ?Type famotidine 20 mg tablet (Pepcid AC) 40 mg PO BID 09/30/24 09/30/24 09/29/24 History Physical Exam Vital Signs: Vital Signs: Last Vital Signs Temp 97.9 F 10/01/24 04:00 Pulse 90 10/01/24 08:00 Resp 18 10/01/24 08:00 BP 92/60 10/01/24 06:15 Pulse Ox 100 02/05/25 08:00 O2 Del Method Room Air 10/01/24 08:00 BMI result Body Mass Index 27.2 Const: General: cooperative, healthy appearing, comfortable and no acute distress Orientation/consciousness: patient oriented x3 HEENT: Face and sinus: Yes normal facial exam Mouth: moist mucous membranes Neck: Neck: Yes normal visual inspection, Yes full ROM and Yes trachea midline Chest: Chest palpation & inspection: normal inspection of the chest Resp: Effort & Inspection: normal respiratory effort, able to speak in complete sentences and no respiratory distress GI: Inspection: Yes normal to inspection Back/Spine/Pelvis: Cervical Spine: normal cervical lordosis Thoracic/Lumbar Spine: thoracic and lumbar spine normal to inspection Skin: General skin exam: no rashes or lesions noted Neuro: General: patient oriented x3, tone normal and moves all extremities Extrem: General: Yes normal to inspection and Yes capillary refill normal Results Labs 10/01/24 06:49 10/01/24 06:48 Labs: Abnormal lab results 09/30/24 09/30/24 09/30/24 Range/Units 05:18 08:59 09:03 WBC (4.8-10.8) X10*3/uL RBC (4.60-5.80) X10*6/uL Hgb 8.2 L (14.0-18.0) g/dl Hct 24.4 L (42.0-52.0) % Plt Count (160-400) X10*3/uL Immature Gran % (Auto) (0.0-0.4) % Neut % (Auto) (45-73) % Lymph % (Auto) (20-40) % Lymph # (Auto) (1.2-4.9) X10*3/uL Abs Immat Gran (auto) (0.00-0.03) X10*3/uL Absolute Neuts (auto) (2.0-8.3) x10*3/uL VBG pH 7.29 L (7.32-7.43) VBG HCO3 11 L (22-26) mmol/L Potassium 6.1 H* (3.3-5.1) mmol/L Chloride 116 H (96-108) mmol/L Carbon Dioxide 11 L (22-29) mmol/L Anion Gap (12-20) BUN 150 H (9-16) mg/dL Creatinine 9.02 H* (0.5-1.4) mg/dL POC Glucose (60-115) mg/dL Random Glucose 147 H (60-115) mg/dL Calcium (8.4-10.2) mg/dL TIBC 156 L (228-428) mcg/dL % Saturation 69 H (15-50) % Ferritin 1864 H (20-250) ng/mL Crossmatch See Detail 09/30/24 09/30/24 09/30/24 Range/Units 13:08 16:11 20:45 WBC (4.8-10.8) X10*3/uL RBC (4.60-5.80) X10*6/uL Hgb (14.0-18.0) g/dl Hct (42.0-52.0) % Plt Count (160-400) X10*3/uL Immature Gran % (Auto) (0.0-0.4) % Neut % (Auto) (45-73) % Lymph % (Auto) (20-40) % Lymph # (Auto) (1.2-4.9) X10*3/uL Abs Immat Gran (auto) (0.00-0.03) X10*3/uL Absolute Neuts (auto) (2.0-8.3) x10*3/uL VBG pH (7.32-7.43) VBG HCO3 (22-26) mmol/L Potassium 5.4 H 5.2 H (3.3-5.1) mmol/L Chloride 113 H 110 H (96-108) mmol/L Carbon Dioxide 13 L 12 L (22-29) mmol/L Anion Gap 22 H (12-20) BUN 143 H 140 H (9-16) mg/dL Creatinine 8.90 H* 8.77 H* (0.5-1.4) mg/dL POC Glucose 212 H (60-115) mg/dL Random Glucose 168 H 150 H (60-115) mg/dL Calcium 8.1 L D (8.4-10.2) mg/dL TIBC (228-428) mcg/dL % Saturation (15-50) % Ferritin (20-250) ng/mL Crossmatch 10/01/24 10/01/24 Range/Units 06:48 06:49 WBC 10.9 H (4.8-10.8) X10*3/uL RBC 1.73 L D (4.60-5.80) X10*6/uL Hgb 5.6 L* D (14.0-18.0) g/dl Hct 15.6 L* D (42.0-52.0) % Plt Count 149 L D (160-400) X10*3/uL Immature Gran % (Auto) 0.7 H (0.0-0.4) % Neut % (Auto) 81.4 H (45-73) % Lymph % (Auto) 8.8 L (20-40) % Lymph # (Auto) 1.0 L (1.2-4.9) X10*3/uL Abs Immat Gran (auto) 0.08 H (0.00-0.03) X10*3/uL Absolute Neuts (auto) 8.9 H (2.0-8.3) x10*3/uL VBG pH (7.32-7.43) VBG HCO3 (22-26) mmol/L Potassium (3.3-5.1) mmol/L Chloride (96-108) mmol/L Carbon Dioxide 18 L (22-29) mmol/L Anion Gap (12-20) BUN (9-16) mg/dL Creatinine 8.78 H* (0.5-1.4) mg/dL POC Glucose (60-115) mg/dL Random Glucose 140 H (60-115) mg/dL Calcium 7.8 L (8.4-10.2) mg/dL TIBC (228-428) mcg/dL % Saturation (15-50) % Ferritin (20-250) ng/mL Crossmatch Short CBC 09/30/24 10/01/24 Range/Units 08:59 06:49 WBC 10.9 H (4.8-10.8) X10*3/uL Hgb 8.2 L 5.6 L* D (14.0-18.0) g/dl Hct 24.4 L 15.6 L* D (42.0-52.0) % Plt Count 149 L D (160-400) X10*3/uL BMP 09/30/24 09/30/2425 08:59 16:11 20:45 Sodium 139 138 139 Potassium 6.1 H* 5.4 H 5.2 H Chloride 116 H 113 H 110 H Carbon Dioxide 11 L 13 L 12 L BUN 150 H 143 H 140 H Creatinine 9.02 H* 8.90 H* 8.77 H* Calcium 8.5 D 8.7 8.1 L D 10/01/24 06:48 Sodium 137 Potassium 4.2 Chloride 107 Carbon Dioxide 18 L BUN Creatinine 8.78 H* Calcium 7.8 L Urine 09/29/24 Range/Units 22:38 Urine Color Yellow Urine Appearance Cloudy Urine pH 5.5 (5.0-9.0) Ur Specific [place] 1.010 (1.005-1.025) Urine Protein Trace (Neg-Trace) mg/dL Urine Glucose (UA) Negative (Negative) mg/dL All other labs normal. Assessment and Plan (1) Elevated PSA: Status: Acute (2) LETI (acute kidney injury): Status: Acute (3) Obstructive uropathy: Status: Acute (4) Acute kidney failure: Status: Acute Plan Mcpherson catheter Repeat ultrasound We will follow creatinine Procedures Date of Service Date of Service: 10/01/24
[2024-10-01 08:56] LABS: Blood Urea Nitrogen 159 mg/dL (9-16)
[2024-10-01] MEDS: Albumin Human 25 % 100 ML IV ×3 (10:29→21:40)
[2024-10-01] MEDS: Midodrine HCl 10 MG TABLET PO (10:29)
[2024-10-01] MEDS: 0.9 % Sodium Chloride 1,000 ML 100 ML IVCONT ×2 (11:04→21:40)
--- NOTE | 2024-10-01 16:09 | P.PNIM_ITS ---
Subjective Subjective Date of Service: 10/01/24 Interval History: leti,hematuria ,anemia Review of Systems Has hematuria No abdominal pain no fevers had episode yesterday Physical Exam 2 Vital Signs: Vital Signs: Last Vital Signs Temp 97.7 F 10/01/24 14:57 Pulse 95 10/01/24 14:57 Resp 17 10/01/24 14:57 BP 110/60 10/01/24 14:57 Pulse Ox 100 10/01/24 08:00 O2 Del Method Room Air 10/01/24 11:54 BMI result Body Mass Index 27.2 General: AOx3, no acute distress Resp: CTA bilaterally CVS: S1, S2, RRR GI: +BS, NT, no distention Skin: Warm, dry Neuro: Cranial nerves II-XII grossly intact bilaterally. Motor grossly intact bilaterally Extremities: no cyanosis or edema Objective Data Active Medications Acetaminophen (Acetaminophen 325 Mg Tablet) 975 mg PO Q6H [facility] Last Admin: 10/01/24 15:50 Dose: Not Given Documented By: JANET Non-Admin Reason: Patient Refused Calcium Carbonate (Calcium Carbonate 750 Mg Tab.Chew) 750 mg PO Q4H PRN PRN Reason: Heartburn Docusate Sodium (Docusate Sodium 100 Mg Capsule) 100 mg PO BID [facility] Last Admin: 10/01/24 08:32 Dose: 100 mg Documented By: JANET Hydromorphone HCl (Hydromorphone Hcl 0.5 Mg/0.5 Ml Syringe) 0.5 mg IVPUSH Q4H PRN; Protocol PRN Reason: Pain, Severe (Pain Scale 7-10) Hydroxyzine HCl (Hydroxyzine Hcl 25 Mg Tablet) 25 mg PO Q6H PRN PRN Reason: Anxiety Albumin Human (Kedbumin 25 %) 100 mls @ 100 mls/hr IV Q6H [facility] Stop: 10/02/24 04:59 Last Admin: 10/01/24 15:50 Dose: 100 mls/hr Documented By: JANET Sodium Chloride (Ns) 1,000 mls @ 100 mls/hr IVCONT .Q10H [facility] Last Admin: 10/01/24 11:04 Dose: 100 mls/hr Documented By: JANET Lidocaine (Lidocaine 4 % Patch Adh..Patch) 1 patch TRANSDERMA DAILY [facility]; Protocol Last Admin: 10/01/24 08:32 Dose: 1 patch Documented By: JANET Magnesium Hydroxide (Milk Of Magnesia 30 Ml Oral.Susp) 30 ml PO DAILY PRN PRN Reason: Constipation Melatonin (Melatonin 3 Mg Tablet) 6 mg PO BEDTIME PRN PRN Reason: Insomnia Ondansetron HCl (Ondansetron Hcl 4 Mg/2 Ml Vial) 4 mg IVPUSH Q8H PRN PRN Reason: Nausea and Vomiting Pantoprazole Sodium (Pantoprazole Sodium 40 Mg/10 Ml Vial) 40 mg IVPUSH BID@0630,1630 [facility] Last Admin: 10/01/24 15:50 Dose: 40 mg Documented By: JANET Polyethylene Glycol (Polyethylene Glycol 3350 17 Gm Powd.Pack) 17 gm PO DAILY PRN PRN Reason: Constipation Sodium Chloride (0.9 % Sodium Chloride Flush 3 Ml Syringe) 3 ml IVFLUSH QSHIFT [facility] Last Admin: 10/01/24 15:50 Dose: 3 ml Documented By: JANET Labs 10/01/24 06:49 10/01/24 06:48 Labs: Laboratory Results - last 24 hr 09/30/24 09/30/24 09/30/24 05:18 16:11 20:45 MCV MCH MCHC RDW Plt Count MPV Immature Gran % (Auto) Neut % (Auto) Lymph % (Auto) [place] % (Auto) Eos % (Auto) Baso % (Auto) Lymph # (Auto) [place] # (Auto) Eos # (Auto) Baso # (Auto) Abs Immat Gran (auto) Absolute Neuts (auto) Absolute Nucleated RBC Nucleated RBC % (auto) Anion Gap 17 22 H Estim Creat Clear Calc 7.5 7.6 Estimated GFR 6 6 Random Glucose 168 H 150 H Calcium 8.7 8.1 L D Blood Type A Positive Antibody Screen NEGATIVE Crossmatch See Detail 10/01/24 10/01/24 06:48 06:49 MCV 90.2 MCH 32.4 MCHC 35.9 RDW 13.0 Plt Count 149 L D MPV 12.4 Immature Gran % (Auto) 0.7 H Neut % (Auto) 81.4 H Lymph % (Auto) 8.8 L [place] % (Auto) 7.4 Eos % (Auto) 1.4 Baso % (Auto) 0.3 Lymph # (Auto) 1.0 L [place] # (Auto) 0.8 Eos # (Auto) 0.2 Baso # (Auto) 0.0 Abs Immat Gran (auto) 0.08 H Absolute Neuts (auto) 8.9 H Absolute Nucleated RBC 0.000 Nucleated RBC % (auto) 0.0 Anion Gap 16 Estim Creat Clear Calc 7.6 Estimated GFR 6 Random Glucose 140 H Calcium 7.8 L Blood Type Antibody Screen Crossmatch Microbiology Microbiology Results: Microbiology 09/30/24 01:38 Urine Culture - Final Urine clean catch - Clean Catch Midstream 09/30/24 04:16 Blood Culture - Preliminary Blood - Venous No growth after 24 hours. 09/30/24 04:16 Blood Culture - Preliminary Blood - Venous No growth after 24 hours. Assessment and Plan (1) UTI (urinary tract infection): Status: Acute (2) Anemia: Status: Acute (3) Hydroureteronephrosis: Status: Acute Assessment and Plan: 74-year-old male with a past medical history significant for HTN and BPH, presented to the ED today due to abnormal labs found by his PCP as well as generalized weakness. Labs significant for LETI, hyperkalemia and anemia. LETI with subsequent hyperkalemia and hydoureteronpehorisis secondary to bladder outlet obstruction WBC 11.9 (reactive vs infectious),no sepsis Tachycardia resolved UA with >50 WBCs, no bacteria, culture pending CT with marked enlargement of the prostate gland with likely bladder outlet obstruction resulting in moderate bilateral hydro ureteral nephrosis, likely the etiology of renal failure with obstructive uropathy vbg -ph 7.29 plan: has price producing urine received bicarb drip-bicarb improved to 18 hematuria -similar urology eval-Interval placement of a Price catheter. The bladder is no longer distended. Wall thickening of the bladder is consistent with suspected chronic outlet obstruction. Mild bilateral hydronephrosis with some improvement since the prior seth hyperkalemia resolved with lokelma and ca gluconate/insulin/dextrose (yesterday) anemia of acute blood loss on ch normocytic, likley of chronic disease fobt negative no obvious bleeding sources or need for blood transfusion at this time h/h was in 5.6 range Received 2 PRBC: H&H improved to 7.8/22.1 HTN - hold lisinopril due to LETI full code VTE prophy: pneumoboots due to anemia and hematuria Pt with LETI, hyperkalemia, bladder outlet obstruction, UTI and acute anemia, requiring admission for further treatment including IV abx and monitoring . Quality Stroke Does the patient have a stroke diagnosis?: No VTE Prior VTE?: No VTE Risk Level:: Medical - moderate - high VTE Device Contraindication: N/A - Device Ordered VTE Drug Contraindication: Treatment Not Indicated
[2024-10-01 17:10] LABS: Hematocrit 22.1 % (42.0-52.0); Hemoglobin 7.8 g/dl (14.0-18.0)
[2024-10-01] MEDS: Finasteride 5 MG TABLET PO (18:39)
[2024-10-01 19:34] LABS: Hemoglobin 7.1 g/dl (14.0-18.0)
[2024-10-02] VITALS (13 sets, daily range): BP systolic 99–129; BP diastolic 49–64; PULSE 78–97; RESP 16–20; TEMP 36.3–37.3; O2SAT 97–100
[2024-10-02] MEDS: Albumin Human 25 % 100 ML IV (04:35)
[2024-10-02] MEDS: Pantoprazole Sodium 40 MG/10 ML VIAL IVPUSH ×2 (05:27→16:25)
[2024-10-02 06:57] LABS: MANUAL DIFF FLAG NO
[2024-10-02 07:06] LABS: Basophils Percent Auto 0.2 % (0-2); Eosinophils Absolute Auto 0.1 X10*3/uL (0.0-0.4); Eosinophils Percent Auto 1.6 % (0-4); Imm Gran Abs Auto 0.07 X10*3/uL (0.00-0.03); Imm Gran Pct Auto 0.8 % (0.0-0.4); Lymphocytes Absolute Auto 0.8 X10*3/uL (1.2-4.9); Lymphocytes Percent Auto 9.6 % (20-40); Mean Corpuscular HGB Conc 35.4 g/dl (31.0-36.0); Mean Corpuscular Hemoglobin 30.4 pg (27.0-33.0); Mean Corpuscular Volume 86.1 fL (80.0-98.0); Monocytes Absolute Auto 0.9 X10*3/uL (0.1-1.2); Monocytes Percent Auto 10.1 % (2-11); Neutrophils Absolute Auto 6.6 x10*3/uL (2.0-8.3); Neutrophils Percent Auto 77.7 % (45-73); Platelet Count 119 X10*3/uL (160-400); Red Cell Distribution Width 14.8 % (11.0-16.0); White Blood Count 8.5 X10*3/uL (4.8-10.8)
[2024-10-02 07:20] LABS: Anion Gap 14 (12-20); Blood Urea Nitrogen 124 mg/dL (9-16); Calcium 8.1 mg/dL (8.4-10.2); Carbon Dioxide 19 mmol/L (22-29); Chloride 113 mmol/L (96-108); Creatinine Clr Calc Pharmacy 12.5; Estimated Glomerular Filt Rate 11; Glucose Random 119 mg/dL (60-115); Potassium 3.6 mmol/L (3.3-5.1); Sodium 142 mmol/L (135-145)
[2024-10-02 07:25] LABS: Hematocrit 19.8 % (42.0-52.0)
[2024-10-02] MEDS: Finasteride 5 MG TABLET PO (08:14)
[2024-10-02] MEDS: Lidocaine 4 % Patch ADH..PATCH 1 PATCH TRANSDERMA (08:14)
[2024-10-02] MEDS: 0.9 % Sodium Chloride Flush 3 ML SYRINGE IVFLUSH ×2 (08:14→16:25)
[2024-10-02] MEDS: Docusate Sodium 100 MG CAPSULE PO (08:14)
[2024-10-02] MEDS: Tamsulosin HCL 0.4 MG CAPSULE PO (08:14)
[2024-10-02] MEDS: 0.9 % Sodium Chloride 1,000 ML 100 ML IVCONT (08:15)
--- NOTE | 2024-10-02 15:06 | P.PNUR_ITS ---
Subjective Subjective Date of Service: 10/02/24 Interval history: Catheter remains Urine clear Creatinine with substantial drop from admission at 10.6-5.3 Ultrasound shows resolving bilateral hydro nephrosis Continue with catheter in place Follow-up outpatient Physical Exam 2 Vital Signs: Vital Signs: Last Vital Signs Temp 98.4 F 10/02/24 12:55 Pulse 91 10/02/24 12:55 Resp 16 10/02/24 12:55 BP 118/52 L 10/02/24 12:55 Pulse Ox 100 10/02/24 11:13 O2 Del Method Room Air 10/02/24 11:13 BMI result Body Mass Index 27.2 Const: General: cooperative, healthy appearing, comfortable and no acute distress Orientation/consciousness: patient oriented x3 HEENT: Face and sinus: Yes normal facial exam Mouth: moist mucous membranes Neck: Neck: Yes normal visual inspection, Yes full ROM and Yes trachea midline Chest: Chest palpation & inspection: normal inspection of the chest Resp: Effort & Inspection: normal respiratory effort, able to speak in complete sentences and no respiratory distress GI: Inspection: Yes normal to inspection Back/Spine/Pelvis: Cervical Spine: normal cervical lordosis Thoracic/Lumbar Spine: thoracic and lumbar spine normal to inspection Skin: General skin exam: no rashes or lesions noted Neuro: General: patient oriented x3, tone normal and moves all extremities Extrem: General: Yes normal to inspection and Yes capillary refill normal Urology Results Labs 10/02/24 06:38 10/02/24 06:38 Labs: Laboratory Results - last 24 hr 09/30/24 10/01/24 10/01/24 05:18 06:49 16:51 WBC RBC Hgb 7.8 L D Hct 22.1 L D MCV MCH MCHC RDW Plt Count MPV Immature Gran % (Auto) Neut % (Auto) Lymph % (Auto) [place] % (Auto) Eos % (Auto) Baso % (Auto) Lymph # (Auto) [place] # (Auto) Eos # (Auto) Baso # (Auto) Abs Immat Gran (auto) Absolute Neuts (auto) Absolute Nucleated RBC Nucleated RBC % (auto) Smear Path Review Sodium Potassium Chloride Carbon Dioxide Anion Gap BUN Creatinine Estim Creat Clear Calc Estimated GFR Random Glucose Calcium Blood Type A Positive Antibody Screen NEGATIVE Crossmatch See Detail 10/01/24 10/02/24 18:57 06:38 WBC 8.5 RBC 2.30 L D Hgb 7.1 L 7.0 L* Hct 20.0 L* 19.8 L* MCV 86.1 MCH 30.4 MCHC 35.4 RDW 14.8 Plt Count 119 L MPV 12.0 Immature Gran % (Auto) 0.8 H Neut % (Auto) 77.7 H Lymph % (Auto) 9.6 L [place] % (Auto) 10.1 Eos % (Auto) 1.6 Baso % (Auto) 0.2 Lymph # (Auto) 0.8 L [place] # (Auto) 0.9 Eos # (Auto) 0.1 Baso # (Auto) 0.0 Abs Immat Gran (auto) 0.07 H Absolute Neuts (auto) 6.6 Absolute Nucleated RBC 0.000 Nucleated RBC % (auto) 0.0 Smear Path Review Sodium 142 Potassium 3.6 Chloride 113 H Carbon Dioxide 19 L Anion Gap 14 BUN 124 H Creatinine 5.32 H* Estim Creat Clear Calc 12.5 Estimated GFR 11 Random Glucose 119 H Calcium 8.1 L Blood Type Antibody Screen Crossmatch Progress Note: A&P Assessment and plan (1) Obstructive uropathy: Status: Acute (2) Acute kidney failure: Status: Acute Plan Outpatient voiding trial and cystoscopy Should discharge home on finasteride and doxazosin Time Spent With Patient Time: Total time managing care of this patient today ____ minutes. Progress Note: Quality Stroke Does the patient have a stroke diagnosis?: No
[2024-10-02] MEDS: HYDROmorphone HCl 0.5 MG/0.5 ML SYRINGE IVPUSH (16:31)
--- NOTE | 2024-10-02 17:39 | HO.PM.IMPN ---
Subjective Subjective Date of Service: 10/02/24 Interval History: anemia ,hematuria ,leti Review of Systems still has hematuria no abd pain or fevers Physical Exam Vital Signs: Vital Signs: Last Vital Signs Temp 97.6 F 10/02/24 15:15 Pulse 78 10/02/24 15:15 Resp 16 10/02/24 15:15 BP 118/58 L 10/02/24 15:15 Pulse Ox 100 10/02/24 11:13 O2 Del Method Room Air 10/02/24 11:13 BMI result Body Mass Index 27.2 General: AOx3, no acute distress Resp: CTA bilaterally CVS: S1, S2, RRR GI: +BS, NT, no distention Skin: Warm, dry Neuro: Cranial nerves II-XII grossly intact bilaterally. Motor grossly intact bilaterally Extremities: no cyanosis or edema Objective Data Active Medications Acetaminophen (Acetaminophen 325 Mg Tablet) 975 mg PO Q6H [facility] Last Admin: 10/02/24 16:26 Dose: Not Given Documented By: JANET Non-Admin Reason: Patient Refused Calcium Carbonate (Calcium Carbonate 750 Mg Tab.Chew) 750 mg PO Q4H PRN PRN Reason: Heartburn Docusate Sodium (Docusate Sodium 100 Mg Capsule) 100 mg PO BID [facility] Last Admin: 10/02/24 08:14 Dose: 100 mg Documented By: JANET Finasteride (Finasteride 5 Mg Tablet) 5 mg PO DAILY [facility] Last Admin: 10/02/24 08:14 Dose: 5 mg Documented By: JANET Hydromorphone HCl (Hydromorphone Hcl 0.5 Mg/0.5 Ml Syringe) 0.5 mg IVPUSH Q4H PRN; Protocol PRN Reason: Pain, Severe (Pain Scale 7-10) Last Admin: 10/02/24 16:31 Dose: 0.5 mg Documented By: JANET Hydroxyzine HCl (Hydroxyzine Hcl 25 Mg Tablet) 25 mg PO Q6H PRN PRN Reason: Anxiety Lidocaine (Lidocaine 4 % Patch Adh..Patch) 1 patch TRANSDERMA DAILY [facility]; Protocol Last Admin: 10/02/24 08:14 Dose: 1 patch Documented By: JANET Magnesium Hydroxide (Milk Of Magnesia 30 Ml Oral.Susp) 30 ml PO DAILY PRN PRN Reason: Constipation Melatonin (Melatonin 3 Mg Tablet) 6 mg PO BEDTIME PRN PRN Reason: Insomnia Ondansetron HCl (Ondansetron Hcl 4 Mg/2 Ml Vial) 4 mg IVPUSH Q8H PRN PRN Reason: Nausea and Vomiting Pantoprazole Sodium (Pantoprazole Sodium 40 Mg/10 Ml Vial) 40 mg IVPUSH BID@0630,1630 [facility] Last Admin: 10/02/24 16:25 Dose: 40 mg Documented By: JANET Polyethylene Glycol (Polyethylene Glycol 3350 17 Gm Powd.Pack) 17 gm PO DAILY PRN PRN Reason: Constipation Sodium Chloride (0.9 % Sodium Chloride Flush 3 Ml Syringe) 3 ml IVFLUSH QSHIFT [facility] Last Admin: 10/02/24 16:25 Dose: 3 ml Documented By: JANET Tamsulosin HCl (Tamsulosin Hcl 0.4 Mg Capsule) 0.4 mg PO DAILY [facility] Last Admin: 10/02/24 08:14 Dose: 0.4 mg Documented By: JANET Labs 10/02/24 06:38 10/02/24 06:38 Labs: Laboratory Results - last 24 hr 09/30/24 10/01/24 10/02/24 05:18 06:49 06:38 MCV 86.1 MCH 30.4 MCHC 35.4 RDW 14.8 Plt Count 119 L MPV 12.0 Immature Gran % (Auto) 0.8 H Neut % (Auto) 77.7 H Lymph % (Auto) 9.6 L [place] % (Auto) 10.1 Eos % (Auto) 1.6 Baso % (Auto) 0.2 Lymph # (Auto) 0.8 L [place] # (Auto) 0.9 Eos # (Auto) 0.1 Baso # (Auto) 0.0 Abs Immat Gran (auto) 0.07 H Absolute Neuts (auto) 6.6 Absolute Nucleated RBC 0.000 Nucleated RBC % (auto) 0.0 Smear Path Review Anion Gap 14 Estim Creat Clear Calc 12.5 Estimated GFR 11 Random Glucose 119 H Calcium 8.1 L Blood Type A Positive Antibody Screen NEGATIVE Crossmatch See Detail Microbiology Microbiology Results: Microbiology 09/30/24 04:16 Blood Culture - Preliminary Blood - Venous No growth after 48 hours. 09/30/24 04:16 Blood Culture - Preliminary Blood - Venous No growth after 48 hours. Assessment and Plan (1) UTI (urinary tract infection): Status: Acute (2) Anemia: Status: Acute (3) Hydroureteronephrosis: Status: Acute Assessment and Plan: 74-year-old male with a past medical history significant for HTN and BPH, presented to the ED today due to abnormal labs found by his PCP as well as generalized weakness. Labs significant for LETI, hyperkalemia and anemia. LETI with subsequent hyperkalemia and hydoureteronpehorisis secondary to bladder outlet obstruction WBC 11.9 (reactive vs infectious),no sepsis Tachycardia resolved UA with >50 WBCs, no bacteria, culture -mixed lili , blood culture neg@48hrs CT with marked enlargement of the prostate gland with likely bladder outlet obstruction resulting in moderate bilateral hydro ureteral nephrosis, likely the etiology of renal failure with obstructive uropathy plan: has price producing urine /has hamturia received bicarb drip-bicarb improved to 19 ,off bicarb drip. hematuria -similar hyperkalemia resolved with lokelma and ca gluconate/insulin/dextrose. urology eval-Interval placement of a Price catheter. The bladder is no longer distended. Wall thickening of the bladder is consistent with suspected chronic outlet obstruction. Mild bilateral hydronephrosis with some improvement since the prior seth. seen by urology -added finaestride and flomax. continue to moniter. anemia of acute blood loss on ch normocytic, likley of chronic disease fobt negative no obvious bleeding sources or need for blood transfusion at this time s/p 2 prbc :h/h was in 03/14.8 added another 2 prbc. HTN - hold lisinopril due to LETI VTE prophy: pneumoboots due to anemia and hematuria Pt with LETI, hyperkalemia, bladder outlet obstruction, UTI and acute anemia, requiring admission for further treatment including IV abx and monitoring . Quality Stroke Does the patient have a stroke diagnosis?: No VTE Prior VTE?: No VTE Risk Level:: Medical - moderate - high VTE Device Contraindication: N/A - Device Ordered VTE Drug Contraindication: Treatment Not Indicated
[2024-10-02] MEDS: cefTRIAXone sodium 1 GM VIAL IVPUSH (18:10)
[2024-10-03] VITALS (7 sets, daily range): BP systolic 112–144; BP diastolic 57–65; PULSE 82–92; RESP 14–20; TEMP 36.5–37.4; O2SAT 93–99
[2024-10-03] MEDS: Pantoprazole Sodium 40 MG/10 ML VIAL IVPUSH (05:50)
[2024-10-03] MEDS: 0.9 % Sodium Chloride Flush 3 ML SYRINGE IVFLUSH ×4 (05:50→20:05)
[2024-10-03] MEDS: Finasteride 5 MG TABLET PO (08:19)
[2024-10-03] MEDS: Docusate Sodium 100 MG CAPSULE PO ×2 (08:19→20:03)
[2024-10-03] MEDS: Tamsulosin HCL 0.4 MG CAPSULE PO (08:19)
[2024-10-03] MEDS: Lidocaine 4 % Patch ADH..PATCH 1 PATCH TRANSDERMA (08:19)
[2024-10-03 09:05] LABS: Hemoglobin 10.6 g/dl (14.0-18.0)
[2024-10-03 09:39] LABS: Anion Gap 15 (12-20); Calcium 8.3 mg/dL (8.4-10.2); Carbon Dioxide 23 mmol/L (22-29); Chloride 109 mmol/L (96-108); Glucose Random 124 mg/dL (60-115); Potassium 3.5 mmol/L (3.3-5.1); Sodium 143 mmol/L (135-145)
[2024-10-03 09:54] LABS: Blood Urea Nitrogen 79 mg/dL (9-16); Creatinine Clr Calc Pharmacy 27.6; Estimated Glomerular Filt Rate 26
--- NOTE | 2024-10-03 14:02 | MHC.CM.PN ---
EMR reviewed and per MD rounds, pt is not medically cleared for discharge due to management of hematuria.
--- NOTE | 2024-10-03 16:31 | HO.PM.IMPN ---
Subjective Subjective Date of Service: 10/03/24 Interval History: anemia ,hematuria ,leti Review of Systems Hematuria somewhat improving LETI also improving Able to eat better Denies any fever or any abdominal pain Physical Exam Vital Signs: Vital Signs: Last Vital Signs Temp 98.4 F 10/03/24 15:09 Pulse 92 10/03/24 15:09 Resp 18 10/03/24 15:09 BP 114/58 L 10/03/24 15:09 Pulse Ox 99 10/03/24 15:09 O2 Del Method Room Air 10/03/24 15:09 BMI result Body Mass Index 27.2 General: AOx3, no acute distress Resp: CTA bilaterally CVS: S1, S2, RRR GI: +BS, NT, no distention Skin: Warm, dry Neuro: Cranial nerves II-XII grossly intact bilaterally. Motor grossly intact bilaterally Extremities: no cyanosis or edema Objective Data Active Medications Acetaminophen (Acetaminophen 325 Mg Tablet) 975 mg PO Q6H [facility] Last Admin: 10/03/24 08:24 Dose: Not Given Documented By: JANET Non-Admin Reason: Patient Refused Calcium Carbonate (Calcium Carbonate 750 Mg Tab.Chew) 750 mg PO Q4H PRN PRN Reason: Heartburn Ceftriaxone Sodium (Ceftriaxone Sodium 1 Gm Vial) 1 gm IVPUSH Q24H [facility] Last Admin: 10/02/24 18:10 Dose: 1 gm Documented By: JANET Docusate Sodium (Docusate Sodium 100 Mg Capsule) 100 mg PO BID [facility] Last Admin: 10/03/24 08:19 Dose: 100 mg Documented By: JANET Finasteride (Finasteride 5 Mg Tablet) 5 mg PO DAILY [facility] Last Admin: 10/03/24 08:19 Dose: 5 mg Documented By: JANET Hydromorphone HCl (Hydromorphone Hcl 0.5 Mg/0.5 Ml Syringe) 0.5 mg IVPUSH Q4H PRN; Protocol PRN Reason: Pain, Severe (Pain Scale 7-10) Last Admin: 10/02/24 16:31 Dose: 0.5 mg Documented By: JANET Hydroxyzine HCl (Hydroxyzine Hcl 25 Mg Tablet) 25 mg PO Q6H PRN PRN Reason: Anxiety Lidocaine (Lidocaine 4 % Patch Adh..Patch) 1 patch TRANSDERMA DAILY [facility]; Protocol Last Admin: 10/03/24 08:19 Dose: 1 patch Documented By: JANET Magnesium Hydroxide (Milk Of Magnesia 30 Ml Oral.Susp) 30 ml PO DAILY PRN PRN Reason: Constipation Melatonin (Melatonin 3 Mg Tablet) 6 mg PO BEDTIME PRN PRN Reason: Insomnia Ondansetron HCl (Ondansetron Hcl 4 Mg/2 Ml Vial) 4 mg IVPUSH Q8H PRN PRN Reason: Nausea and Vomiting Polyethylene Glycol (Polyethylene Glycol 3350 17 Gm Powd.Pack) 17 gm PO DAILY PRN PRN Reason: Constipation Sodium Chloride (0.9 % Sodium Chloride Flush 3 Ml Syringe) 3 ml IVFLUSH QSHIFT [facility] Last Admin: 10/03/24 08:20 Dose: 3 ml Documented By: JANET Tamsulosin HCl (Tamsulosin Hcl 0.4 Mg Capsule) 0.4 mg PO DAILY [facility] Last Admin: 10/03/24 08:19 Dose: 0.4 mg Documented By: JANET Labs 10/03/24 08:13 10/03/24 08:13 Labs: Laboratory Results - last 24 hr 10/03/24 08:13 Anion Gap 15 Estim Creat Clear Calc 27.6 Estimated GFR 26 Random Glucose 124 H Calcium 8.3 L Assessment and Plan (1) UTI (urinary tract infection): Status: Acute (2) Anemia: Status: Acute (3) Hydroureteronephrosis: Status: Acute (4) Bladder outlet obstruction: Status: Acute (5) LETI (acute kidney injury): Status: Acute Assessment and Plan: 74-year-old male with a past medical history significant for HTN and BPH, presented to the ED today due to abnormal labs found by his PCP as well as generalized weakness. Labs significant for LETI, hyperkalemia and anemia. LETI with subsequent hyperkalemia and hydoureteronpehorisis secondary to bladder outlet obstruction WBC 11.9 (reactive vs infectious),no sepsis Tachycardia resolved UA with >50 WBCs, no bacteria, culture -mixed lili , blood culture neg@48hrs CT with marked enlargement of the prostate gland with likely bladder outlet obstruction resulting in moderate bilateral hydro ureteral nephrosis, likely the etiology of renal failure with obstructive uropathy plan: has price producing urine /has hamaturia bicarb improved,off bicarb drip. hematuria -somewhat improving hyperkalemia resolved . urology eval-Interval placement of a Price catheter. The bladder is no longer distended. Wall thickening of the bladder is consistent with suspected chronic outlet obstruction. Mild bilateral hydronephrosis with some improvement since the prior . ? cystsitis on us. seen by urology -continue finaestride and flomax,antibiotics-ceftriaxone . continue to moniter. anemia of acute blood loss on ch normocytic, likley of chronic disease fobt negative no obvious bleeding sources or need for blood transfusion at this time s/p 4prbc -h/h 10. continue to moniter h/h HTN- hold lisinopril due to LETI VTE prophy: pneumoboots due to anemia and hematuria Pt with LETI, hyperkalemia, bladder outlet obstruction, UTI and acute anemia, requiring admission for further treatment including IV abx and monitoring . Quality Stroke Does the patient have a stroke diagnosis?: No VTE Prior VTE?: No VTE Risk Level:: Medical - moderate - high VTE Device Contraindication: N/A - Device Ordered VTE Drug Contraindication: Treatment Not Indicated
[2024-10-03] MEDS: cefTRIAXone sodium 1 GM VIAL IVPUSH (18:04)
[2024-10-04 03:20] VITALS: BP 119/60; PULSE 78; RESP 16; TEMP 36.5; O2SAT 97
[2024-10-04 07:40] LABS: Hematocrit 31.3 % (42.0-52.0); Hemoglobin 10.6 g/dl (14.0-18.0)
[2024-10-04 07:50] VITALS: BP 98/60; PULSE 86; RESP 18; TEMP 36.6; O2SAT 96
[2024-10-04 08:09] LABS: Anion Gap 15 (12-20); Blood Urea Nitrogen 43 mg/dL (9-16); Calcium 8.5 mg/dL (8.4-10.2); Carbon Dioxide 22 mmol/L (22-29); Chloride 108 mmol/L (96-108); Estimated Glomerular Filt Rate 41; Glucose Random 140 mg/dL (60-115); Potassium 3.2 mmol/L (3.3-5.1); Sodium 142 mmol/L (135-145)
[2024-10-04] MEDS: Finasteride 5 MG TABLET PO (09:09)
[2024-10-04] MEDS: Tamsulosin HCL 0.4 MG CAPSULE PO (09:09)
[2024-10-04] MEDS: Docusate Sodium 100 MG CAPSULE PO ×2 (09:09→19:33)
[2024-10-04] MEDS: Lidocaine 4 % Patch ADH..PATCH 1 PATCH TRANSDERMA (09:09)
[2024-10-04] MEDS: 0.9 % Sodium Chloride Flush 3 ML SYRINGE IVFLUSH ×3 (09:10→19:36)
[2024-10-04] MEDS: Potassium Chloride ER 20 MEQ TAB.ER.PRT PO (09:12)
[2024-10-04 10:18] LABS: Magnesium 1.4 mg/dL (1.6-2.6)
[2024-10-04 11:50] VITALS: BP 108/66; PULSE 82; RESP 18; TEMP 36.7; O2SAT 98
[2024-10-04] MEDS: Magnesium Sulfate/D5W 1 GM/100 ML PIGGYBACK IV (12:15)
--- NOTE | 2024-10-04 12:45 | HO.PM.IMPN ---
Subjective Subjective Date of Service: 10/04/24 Interval History: anemia ,hematuria ,juan jose Review of Systems Hematuria somewhat improving JUAN JOSE also improving Able to eat better Denies any fever or any abdominal pain Physical Exam Vital Signs: Vital Signs: Last Vital Signs Temp 98.1 F 10/04/24 11:50 Pulse 82 10/04/24 11:50 Resp 18 10/04/24 11:50 BP 108/66 10/04/24 11:50 Pulse Ox 98 10/04/24 11:50 O2 Del Method Room Air 10/04/24 11:50 BMI result Body Mass Index 27.2 General: AOx3, no acute distress Resp: CTA bilaterally CVS: S1, S2, RRR GI: +BS, NT, no distention Skin: Warm, dry Neuro: Cranial nerves II-XII grossly intact bilaterally. Motor grossly intact bilaterally Extremities: no cyanosis or edema Objective Data Active Medications Acetaminophen (Acetaminophen 325 Mg Tablet) 975 mg PO Q6H [facility] Last Admin: 10/04/24 11:05 Dose: Not Given Documented By: GARETH Non-Admin Reason: Patient Refused Calcium Carbonate (Calcium Carbonate 750 Mg Tab.Chew) 750 mg PO Q4H PRN PRN Reason: Heartburn Ceftriaxone Sodium (Ceftriaxone Sodium 1 Gm Vial) 1 gm IVPUSH Q24H [facility] Last Admin: 10/03/24 18:04 Dose: 1 gm Documented By: JANET Docusate Sodium (Docusate Sodium 100 Mg Capsule) 100 mg PO BID [facility] Last Admin: 10/04/24 09:09 Dose: 100 mg Documented By: GARETH Finasteride (Finasteride 5 Mg Tablet) 5 mg PO DAILY [facility] Last Admin: 10/04/24 09:09 Dose: 5 mg Documented By: GARETH Hydromorphone HCl (Hydromorphone Hcl 0.5 Mg/0.5 Ml Syringe) 0.5 mg IVPUSH Q4H PRN; Protocol PRN Reason: Pain, Severe (Pain Scale 7-10) Last Admin: 10/02/24 16:31 Dose: 0.5 mg Documented By: JANET Hydroxyzine HCl (Hydroxyzine Hcl 25 Mg Tablet) 25 mg PO Q6H PRN PRN Reason: Anxiety Lidocaine (Lidocaine 4 % Patch Adh..Patch) 1 patch TRANSDERMA DAILY [facility]; Protocol Last Admin: 10/04/24 09:09 Dose: 1 patch Documented By: GARETH Magnesium Hydroxide (Milk Of Magnesia 30 Ml Oral.Susp) 30 ml PO DAILY PRN PRN Reason: Constipation Melatonin (Melatonin 3 Mg Tablet) 6 mg PO BEDTIME PRN PRN Reason: Insomnia Ondansetron HCl (Ondansetron Hcl 4 Mg/2 Ml Vial) 4 mg IVPUSH Q8H PRN PRN Reason: Nausea and Vomiting Polyethylene Glycol (Polyethylene Glycol 3350 17 Gm Powd.Pack) 17 gm PO DAILY PRN PRN Reason: Constipation Sodium Chloride (0.9 % Sodium Chloride Flush 3 Ml Syringe) 3 ml IVFLUSH QSHIFT [facility] Last Admin: 10/04/24 09:10 Dose: 3 ml Documented By: GARETH Tamsulosin HCl (Tamsulosin Hcl 0.4 Mg Capsule) 0.4 mg PO DAILY [facility] Last Admin: 10/04/24 09:09 Dose: 0.4 mg Documented By: GARETH Labs 10/04/24 07:08 10/04/24 07:08 Labs: Laboratory Results - last 24 hr 10/04/24 07:08 Anion Gap 15 Estim Creat Clear Calc 41.0 Estimated GFR 41 Random Glucose 140 H Calcium 8.5 Magnesium 1.4 L* Assessment and Plan (1) UTI (urinary tract infection): Status: Acute (2) Anemia: Status: Acute (3) Hydroureteronephrosis: Status: Acute (4) Bladder outlet obstruction: Status: Acute (5) JUAN JOSE (acute kidney injury): Status: Acute Assessment and Plan: 74-year-old male with a past medical history significant for HTN and BPH, presented to the ED today due to abnormal labs found by his PCP as well as generalized weakness. Labs significant for JUAN JSOE, hyperkalemia and anemia. JUAN JOSE with subsequent hyperkalemia and hydoureteronpehorisis secondary to bladder outlet obstruction WBC 11.9 (reactive vs infectious),no sepsis Tachycardia resolved UA with >50 WBCs, no bacteria, culture -mixed lili , blood culture neg@48hrs CT with marked enlargement of the prostate gland with likely bladder outlet obstruction resulting in moderate bilateral hydro ureteral nephrosis, likely the etiology of renal failure with obstructive uropathy plan: has price producing urine /has hamaturia bicarb improved,off bicarb drip. hematuria -somewhat improving hyperkalemia resolved . urology eval-Interval placement of a Price catheter. The bladder is no longer distended. Wall thickening of the bladder is consistent with suspected chronic outlet obstruction. Mild bilateral hydronephrosis with some improvement since the prior . ? cystsitis on us. seen by urology -continue finaestride and flomax,antibiotics-ceftriaxone . continue to moniter. hypokalemia/hypomagnesemia:added replacements iv and po moniter bmp/mag anemia of acute blood loss on ch normocytic, likley of chronic disease fobt negative no obvious bleeding sources or need for blood transfusion at this time s/p 4prbc -h/h 10. continue to moniter h/h HTN- hold lisinopril due to JUAN JOSE VTE prophy: pneumoboots due to anemia and hematuria Pt with JUAN JOSE, hyperkalemia, bladder outlet obstruction, UTI and acute anemia, requiring admission for further treatment including IV abx and monitoring . Quality Stroke Does the patient have a stroke diagnosis?: No VTE Prior VTE?: No VTE Risk Level:: Medical - moderate - high VTE Device Contraindication: N/A - Device Ordered VTE Drug Contraindication: Treatment Not Indicated
[2024-10-04 15:55] VITALS: BP 109/55; PULSE 91; RESP 18; TEMP 37.3; O2SAT 97
[2024-10-04] MEDS: cefTRIAXone sodium 1 GM VIAL IVPUSH (17:17)
[2024-10-04] MEDS: HYDROmorphone HCl 0.5 MG/0.5 ML SYRINGE IVPUSH (18:27)
[2024-10-04 19:07] VITALS: BP 114/62; PULSE 92; RESP 14; TEMP 36.5; O2SAT 99
[2024-10-04 23:43] VITALS: BP 107/63; PULSE 81; RESP 16; TEMP 36.7; O2SAT 99
[2024-10-05 03:46] VITALS: BP 103/54; PULSE 83; RESP 18; TEMP 36.7; O2SAT 98
[2024-10-05 08:00] VITALS: BP 109/58; PULSE 79; RESP 19; TEMP 37.1; O2SAT 97
[2024-10-05 08:37] LABS: Hematocrit 31.2 % (42.0-52.0); Hemoglobin 10.5 g/dl (14.0-18.0)
[2024-10-05 08:51] LABS: Anion Gap 14 (12-20); Blood Urea Nitrogen 39 mg/dL (9-16); Carbon Dioxide 23 mmol/L (22-29); Chloride 105 mmol/L (96-108); Creatinine Clr Calc Pharmacy 45.2; Estimated Glomerular Filt Rate 46; Glucose Random 104 mg/dL (60-115); Potassium 3.4 mmol/L (3.3-5.1); Sodium 139 mmol/L (135-145)
[2024-10-05] MEDS: Finasteride 5 MG TABLET PO (09:34)
[2024-10-05] MEDS: Tamsulosin HCL 0.4 MG CAPSULE PO (09:34)
[2024-10-05] MEDS: Lidocaine 4 % Patch ADH..PATCH 1 PATCH TRANSDERMA (09:35)
[2024-10-05] MEDS: Docusate Sodium 100 MG CAPSULE PO ×2 (09:35→21:44)
[2024-10-05] MEDS: 0.9 % Sodium Chloride Flush 3 ML SYRINGE IVFLUSH ×3 (09:36→21:45)
[2024-10-05 11:24] LABS: Magnesium 1.5 mg/dL (1.6-2.6)
[2024-10-05 12:00] VITALS: BP 111/56; PULSE 76; RESP 19; TEMP 37.8; O2SAT 95
[2024-10-05 15:47] VITALS: BP 105/57; PULSE 83; RESP 19; TEMP 36.8; O2SAT 100
--- NOTE | 2024-10-05 15:54 | P.PNIM_ITS ---
Subjective Subjective Date of Service: 10/05/24 Interval History: hematuria,leti Review of Systems hematuria somewhat improving po intake also improving no fever Physical Exam 2 Vital Signs: Vital Signs: Last Vital Signs Temp 98.2 F 10/05/24 15:47 Pulse 83 10/05/24 15:47 Resp 19 10/05/24 15:47 BP 105/57 L 10/05/24 15:47 Pulse Ox 100 10/05/24 15:47 O2 Del Method Room Air 10/05/24 15:47 BMI result Body Mass Index 27.2 General: AOx3, no acute distress Resp: CTA bilaterally CVS: S1, S2, RRR GI: +BS, NT, no distention Gu-has light/ darkish red urine in bag . Skin: Warm, dry Neuro: Cranial nerves II-XII grossly intact bilaterally. Motor grossly intact bilaterally Extremities: no cyanosis or edema Objective Data Active Medications Acetaminophen (Acetaminophen 325 Mg Tablet) 975 mg PO Q6H [facility] Last Admin: 10/05/24 09:41 Dose: Not Given Documented By: GARETH Non-Admin Reason: Patient Refused Calcium Carbonate (Calcium Carbonate 750 Mg Tab.Chew) 750 mg PO Q4H PRN PRN Reason: Heartburn Ceftriaxone Sodium (Ceftriaxone Sodium 1 Gm Vial) 1 gm IVPUSH Q24H [facility] Last Admin: 10/04/24 17:17 Dose: 1 gm Documented By: GARETH Docusate Sodium (Docusate Sodium 100 Mg Capsule) 100 mg PO BID [facility] Last Admin: 10/05/24 09:35 Dose: 100 mg Documented By: GARETH Finasteride (Finasteride 5 Mg Tablet) 5 mg PO DAILY [facility] Last Admin: 10/05/24 09:34 Dose: 5 mg Documented By: GARETH Hydroxyzine HCl (Hydroxyzine Hcl 25 Mg Tablet) 25 mg PO Q6H PRN PRN Reason: Anxiety Lidocaine (Lidocaine 4 % Patch Adh..Patch) 1 patch TRANSDERMA DAILY [facility]; Protocol Last Admin: 10/05/24 09:35 Dose: 1 patch Documented By: GARETH Magnesium Hydroxide (Milk Of Magnesia 30 Ml Oral.Susp) 30 ml PO DAILY PRN PRN Reason: Constipation Melatonin (Melatonin 3 Mg Tablet) 6 mg PO BEDTIME PRN PRN Reason: Insomnia Ondansetron HCl (Ondansetron Hcl 4 Mg/2 Ml Vial) 4 mg IVPUSH Q8H PRN PRN Reason: Nausea and Vomiting Polyethylene Glycol (Polyethylene Glycol 3350 17 Gm Powd.Pack) 17 gm PO DAILY PRN PRN Reason: Constipation Sodium Chloride (0.9 % Sodium Chloride Flush 3 Ml Syringe) 3 ml IVFLUSH QSHIFT [facility] Last Admin: 10/05/24 09:36 Dose: 3 ml Documented By: GARETH Tamsulosin HCl (Tamsulosin Hcl 0.4 Mg Capsule) 0.4 mg PO DAILY [facility] Last Admin: 10/05/24 09:34 Dose: 0.4 mg Documented By: GARETH Labs 10/05/24 07:50 10/05/24 07:50 Labs: Laboratory Results - last 24 hr 10/05/24 07:50 Anion Gap 14 Estim Creat Clear Calc 45.2 Estimated GFR 46 Random Glucose 104 Calcium 8.0 L Magnesium 1.5 L Microbiology Microbiology Results: Microbiology 09/30/24 04:16 Blood Culture - Final Blood - Venous No growth after 5 days. 09/30/24 04:16 Blood Culture - Final Blood - Venous No growth after 5 days. Assessment and Plan (1) UTI (urinary tract infection): Status: Acute (2) Anemia: Status: Acute (3) Hydroureteronephrosis: Status: Acute (4) Bladder outlet obstruction: Status: Acute (5) LETI (acute kidney injury): Status: Acute Assessment and Plan: 74-year-old male with a past medical history significant for HTN and BPH, presented to the ED today due to abnormal labs found by his PCP as well as generalized weakness. Labs significant for LETI, hyperkalemia and anemia. LETI with subsequent hyperkalemia and hydoureteronpehorisis secondary to bladder outlet obstruction WBC 11.9 (reactive vs infectious),no sepsis Tachycardia resolved UA with >50 WBCs, no bacteria, culture -mixed lili , blood culture neg@48hrs CT with marked enlargement of the prostate gland with likely bladder outlet obstruction resulting in moderate bilateral hydro ureteral nephrosis, likely the etiology of renal failure with obstructive uropathy Us:Interval placement of a Price catheter. The bladder is no longer distended.Wall thickening of the bladder is consistent with suspected chronic outlet obstruction. Mild bilateral hydronephrosis with some improvement since the prior .? cystsitis . plan: has price,producing urine -has hamaturia (improving) urology eval-seen by urology -continue finaestride and flomax,antibiotics- ceftriaxone . continue to moniter. hypokalemia/hypomagnesemia:Hypokalemia resolved ,added magesium po and iv moniter bmp/mag anemia of acute blood loss on ch normocytic, likley of chronic disease fobt negative no obvious bleeding sources or need for blood transfusion at this time s/p 4prbc -h/h . continue to moniter h/h HTN- hold lisinopril due to LETI VTE prophy: pneumoboots due to anemia and hematuria Pt with LETI, hyperkalemia, bladder outlet obstruction, UTI and acute anemia, requiring admission for further treatment including IV abx and monitoring . Quality Stroke Does the patient have a stroke diagnosis?: No VTE Prior VTE?: No VTE Risk Level:: Medical - moderate - high VTE Device Contraindication: N/A - Device Ordered VTE Drug Contraindication: Treatment Not Indicated
[2024-10-05] MEDS: Magnesium Oxide 400 MG TABLET PO (17:33)
[2024-10-05] MEDS: Potassium Chloride ER 20 MEQ TAB.ER.PRT PO (17:33)
[2024-10-05] MEDS: cefTRIAXone sodium 1 GM VIAL IVPUSH (17:34)
[2024-10-05] MEDS: Magnesium Sulfate/D5W 1 GM/100 ML PIGGYBACK IV (17:43)
[2024-10-05 19:04] VITALS: BP 123/58; PULSE 93; RESP 18; TEMP 37.5; O2SAT 98
[2024-10-06] VITALS: BP 117/60; PULSE 78; RESP 16; TEMP 37; O2SAT 98
[2024-10-06 04:00] VITALS: BP 112/57; PULSE 71; RESP 16; TEMP 36.9; O2SAT 99
[2024-10-06 07:49] VITALS: BP 104/54; PULSE 75; RESP 18; TEMP 37.1; O2SAT 99
[2024-10-06] MEDS: 0.9 % Sodium Chloride Flush 3 ML SYRINGE IVFLUSH (09:49)
[2024-10-06] MEDS: Docusate Sodium 100 MG CAPSULE PO (09:50)
[2024-10-06] MEDS: Magnesium Oxide 400 MG TABLET PO (09:50)
[2024-10-06] MEDS: Finasteride 5 MG TABLET PO (09:50)
[2024-10-06] MEDS: Tamsulosin HCL 0.4 MG CAPSULE PO (09:50)
[2024-10-06] MEDS: Lidocaine 4 % Patch ADH..PATCH 1 PATCH TRANSDERMA (09:50)
[2024-10-06 10:10] LABS: Anion Gap 14 (12-20); Blood Urea Nitrogen 32 mg/dL (9-16); Calcium 8.1 mg/dL (8.4-10.2); Carbon Dioxide 24 mmol/L (22-29); Chloride 104 mmol/L (96-108); Creatinine Clr Calc Pharmacy 49.5; Estimated Glomerular Filt Rate 51; Glucose Random 110 mg/dL (60-115); Potassium 3.7 mmol/L (3.3-5.1); Sodium 138 mmol/L (135-145)
[2024-10-06 11:27] VITALS: BP 100/57; PULSE 81; RESP 16; TEMP 37.3; O2SAT 98
--- NOTE | 2024-10-06 12:31 | MHC.CM.PN ---
Patient has been medically cleared for dc to home today, with services. CM met with Patient and his at bedside and he is agreeable to [facility] for home PT & SN(NA is aware of today's dc). CM addressed IMM with Patient and provided him with the original and a copy has been placed on the chart. will transport to home.
--- NOTE | 2024-10-06 12:44 | W.MHC.F2F ---
Service Date Service Date: 10/06/24 Encounter Date of encounter: 10/06/24 Encounter: anemia ,juan jose, hypokalemia /hypomagnesemia Reasons for Services Signs and symptoms assessed: Worsening anemia or bleeding or hematuria or abdominal pain or fever. Reason for shelter: medication management, medication treatment, teach disease management and other (price care) Reason for physical therapy: home safety and mobility, therapeutic exercises, restore joint function, gait/transfer training, assess need for DME, ADL training, energy conservation and other MD Overseeing Care: Nathan Ferrell Homebound: Leaving the home is medically contraindicated at this time without the asist of a device and/or another person due th the listed conditions above and below. Reason homebound: weakness related to hospital stay Homebound supporting statement: Patient is generalised weak post hospitlisation and need help with going to appointments and labs draws as well as PT ,also has price. Certification: Based on the above findings, I certify that this patient is confined to the home and needs intermittent shelter care, physical therapy and/or speech therapy, or continues to need occupational therapy. The patient is under my care, and I have initiated the establishment of the plan of care. The patient will be followed by a physician who will periodically review the plan of care. Time Spent With Patient Time: Total time managing care of this patient today ____ minutes.
--- NOTE | 2024-10-06 12:45 | PM.DS ---
DS: Providers Provider Date of Service: 10/06/24 Date of admission: 09/30/24 02:45 Date of discharge: 10/06/24 Primary care physician: Nathan Ferrell MD Consults: 09/30/24 02:48 Consult to Urology Routine Consulting Provider: [facility] Reason for consultation: bilateral hydroureteronephrosis, BPH, heamturia, ?UTI Has provider been notified: No 09/30/24 02:50 Consult to Nephrology Routine Consulting Provider: Adrien Reeves Reason for consultation: LETI cr 10.10 Attending physician on discharge: Joseph Torres Discharging clinician: Joseph Torres DS: Diagnosis Discharge Diagnosis (1) UTI (urinary tract infection): Status: Acute (2) Anemia: Status: Acute (3) Hydroureteronephrosis: Status: Acute (4) Bladder outlet obstruction: Status: Acute (5) LETI (acute kidney injury): Status: Acute DS: Summary Hospital Course Hospital Course: HPI:74-year-old male with a past medical history significant for HTN and BPH, presented to the ED today due to abnormal labs found by his PCP as well as generalized weakness. Labs showed significant hyperkalemia and LETI. He reports that he had recently increased his dose of famotidine to 40 mg daily and noticed urinary retention. He denies any hematuria, dysuria, frequency or urgency prior to the catheter being placed in the ED. He is now having urethral discomfort as well as hematuria. He also reports that he was having abdominal bloating, discomfort and gas pains. A lot of his symptoms have resolved since having the catheter placed in the ED. he denies any additional symptoms including headache, sore throat, congestion, cough, chest pain, shortness of breath or lower extremity edema. Labs were also significant for anemia, the patient reports that he has never been anemic before and denies any bleeding sources including melena or rectal bleeding. Hospital course: 74-year-old male with a past medical history significant for HTN and BPH, presented to the ED today due to abnormal labs found by his PCP as well as generalized weakness. Labs significant for LETI, hyperkalemia and anemia. LETI with subsequent hyperkalemia and hydoureteronpehorisis secondary to bladder outlet obstruction: Patient was admitted to the hospital UA sent, CT abdomen-marked enlargement of the prostate gland with likely bladder outlet obstruction resulting in moderate bilateral hydro ureteral nephrosis, likely the etiology of renal failure with obstructive uropathy, mild elevated WBC count, blood cultures sent. Due to due to LETI and hydro ureteral nephrosis secondary to bladder outlet obstruction-Price was placed, patient also had hematuria. So patient was monitor clinically, started on IV hydration, H&H monitored, also started on IV antibiotics. With above supportive care patient LETI seems to be improved significantly, hematuria resolved, blood culture negative at 48 hours, urine culture mixed, antibiotics de-escalated to p.o. Ceftin 500 b.i.d. Patient was followed by Urology: Repeat renal ultrasound was done-Interval placement of a Price catheter. The bladder is no longer distended.Wall thickening of the bladder is consistent with suspected chronic outlet obstruction. Mild bilateral hydronephrosis with some improvement since the prior .? cystsitis . Discussed with Dr. Candelario in urology: Patient will need outpatient cystoscopy with voiding trial, patient will go home with Price. hypokalemia/hypomagnesemia: He has electrolytic abnormalities secondary to decreased p.o. intake, LEIT: Seems to be improved significantly with increased p.o. intake and improvement of renal function. will add limited potassium 10 meq daily for 4 days and magnesium 500 mg po bid x1 week. moniter renal function and electrolytes outpatient. anemia of acute blood loss on ch normocytic, likley of chronic disease fobt negative no obvious bleeding sources or need for blood transfusion at this time s/p 4prbc -h/h 10. continue monitering cbc. HTN- stop lisinopril /hctz due to recent leti and electrolytic abnormalities, blood pressure is stable currently-consider follow-up out patiently with PCP if needed can started on antihypertensive outpatient. plan: encouraged for hydration ,continue potassium 10 meq daily for 4 days and magnesium 500 mg po bid x1 week. ceftin 500 mg bid x3 more days. stop lisinopril/hctz. moniter for hematuria and cbc . continue flomax and finasteride, going home with price . follow up with cbc,bmp,magnesium . follow up with pcp,nephro,urology. patient will go home with vna. Above assessment and plan discussed with the patient and his at bedside in detail length, time spent 40 minute, both understand and in agreement with the above plan. Time Attestation Total time managing care of this patient today: 40 mintues. Discharge Coordination Time (in mins): 40 min Quality: Safe Use of Opioids Does Pt have an Active Cancer Diagnosis on the Problem List?: No Quality: Stroke Does the patient have a stroke diagnosis?: No Physical Exam Vital Signs: Vital Signs: Last Vital Signs Temp 99.2 F 10/06/24 11:27 Pulse 81 10/06/24 11:27 Resp 16 10/06/24 11:27 BP 100/57 L 10/06/24 11:27 Pulse Ox 98 10/06/24 11:27 O2 Del Method Room Air 10/06/24 11:27 BMI result Body Mass Index 27.2 General: AOx3, no acute distress Resp: CTA bilaterally CVS: S1, S2, RRR GI: +BS, NT, no distention Gu-s/p price -clear fluid. Skin: Warm, dry Neuro: Cranial nerves II-XII grossly intact bilaterally. Motor grossly intact bilaterally Extremities: no cyanosis or edema DS: Data Data Completed and Pending Labs on day of discharge: Laboratory Results - last 24 hr 10/02/24 10/06/24 06:38 09:41 WBC 8.5 RBC 2.30 L D Hgb 7.0 L* Hct 19.8 L* MCV 86.1 MCH 30.4 MCHC 35.4 RDW 14.8 Plt Count 119 L MPV 12.0 Immature Gran % (Auto) 0.8 H Neut % (Auto) 77.7 H Lymph % (Auto) 9.6 L [place] % (Auto) 10.1 Eos % (Auto) 1.6 Baso % (Auto) 0.2 Lymph # (Auto) 0.8 L [place] # (Auto) 0.9 Eos # (Auto) 0.1 Baso # (Auto) 0.0 Abs Immat Gran (auto) 0.07 H Absolute Neuts (auto) 6.6 Absolute Nucleated RBC 0.000 Nucleated RBC % (auto) 0.0 Sodium 142 138 Potassium 3.6 3.7 Chloride 113 H 104 Carbon Dioxide 19 L 24 Anion Gap 14 14 BUN 124 H 32 H Creatinine 5.32 H* 1.35 Estim Creat Clear Calc 12.5 49.5 Estimated GFR 11 51 Random Glucose 119 H 110 Calcium 8.1 L 8.[address] scan - abdomen: My impression: CT pelvis: Massive distention of the urinary bladder. Urinary bladder measures 14.9 x 13.0 x 14.8 cm in size. Urinary bladder extends outside the confines of the pelvis and into the lower abdomen near the level of the renal matthew. Adjacent inflammatory stranding with small perivesicular lymph nodes all measuring less than 7 mm in short axis. Prostate gland is markedly enlarged measuring 7.6 x 7.0 x 7.3 cm in size. Appendix is normal. No colonic wall thickening or pericolonic inflammatory stranding. Impression: Marked enlargement of the prostate gland with likely bladder outlet obstruction resulting in moderate bilateral hydronephrosis and hydroureter. This is presumably the etiology for the patient's renal failure with obstructive uropathy. Price catheter decompression is suggested. Renal us: impression: Interval placement of a Price catheter. The bladder is no longer distended. Wall thickening of the bladder is consistent with suspected chronic outlet obstruction. There is also internal debris in cystitis may also be considered. Correlate with urinalysis. Mild bilateral hydronephrosis with some improvement since the prior study. Discharge Plan Discharge Anticipated Discharge Date/Time: 10/06/24 12:20 Patient Disposition: Home Health Service Discharge Diagnosis: LETI with subsequent hyperkalemia and hydoureteronpehorisis secondary to bladder outlet obstruction,electrolytes abnormalities Referrals: Nathan Ferrell MD [Primary Care Provider] - 1 Week Discharge Medications: New tamsulosin 0.4 mg Capsule 0.4 mg PO DAILY 90 Days Qty: 90 0RF finasteride 5 mg Tablet 5 mg PO DAILY 90 Days Qty: 90 0RF cefuroxime axetil 500 mg Tablet 500 mg PO Q12H Qty: 6 0RF potassium chloride 10 mEq tablet extended release 10 meq PO DAILY Qty: 4 0RF magnesium gluconate 27 mg magnesium (500 mg) tablet 27 mg PO BID Qty: 14 0RF Continued famotidine [Pepcid AC] 20 mg Tablet 40 mg PO BID Discontinued lisinopril-hydrochlorothiazide 20-12.5 mg tablet 1 tab PO DAILY 30 Days Qty: 30 2RF Discharge Orders: Discharge Order (Routine); Ordered 10/06/24 Ordered By: Joseph Torres Diet: Advance to usual diet Activity on Discharge: As tolerated Stand Alone Forms: Patient Portal Discharge page Print Language: Guamanian Other Ambulatory Orders: Basic Metabolic Panel (Routine) Timeframe: 1 Week Facility: [facility] - Location: Laboratory Ordered By: Joseph Torres Complete Blood Count no Diff (Routine) Timeframe: 1 Week Facility: [facility] - Location: Laboratory Ordered By: Joseph Torres Magnesium (Routine) Timeframe: 1 Week Facility: [facility] - Location: Laboratory Ordered By: Joseph Torres Care Plan Goals: 74-year-old male with a past medical history significant for HTN and BPH, presented to the ED today due to abnormal labs found by his PCP as well as generalized weakness. Labs significant for LETI, hyperkalemia and anemia. LETI with subsequent hyperkalemia and hydoureteronpehorisis secondary to bladder outlet obstruction: Patient was admitted to the hospital UA sent, CT abdomen-marked enlargement of the prostate gland with likely bladder outlet obstruction resulting in moderate bilateral hydro ureteral nephrosis, likely the etiology of renal failure with obstructive uropathy, mild elevated WBC count, blood cultures sent. Due to due to LETI and hydro ureteral nephrosis secondary to bladder outlet obstruction-Price was placed, patient also had hematuria. So patient was monitor clinically, started on IV hydration, H&H monitored, also started on IV antibiotics. With above supportive care patient LETI seems to be improved significantly, hematuria resolved, blood culture negative at 48 hours, urine culture mixed, antibiotics de-escalated to p.o. Ceftin 500 b.i.d. Patient was followed by Urology: Repeat renal ultrasound was done-Interval placement of a Price catheter. The bladder is no longer distended.Wall thickening of the bladder is consistent with suspected chronic outlet obstruction. Mild bilateral hydronephrosis with some improvement since the prior .? cystsitis . Discussed with Dr. Candelario in urology: Patient will need outpatient cystoscopy with voiding trial, patient will go home with Price. hypokalemia/hypomagnesemia: He has electrolytic abnormalities secondary to decreased p.o. intake, LETI: Seems to be improved significantly with increased p.o. intake and improvement of renal function. will add limited potassium 10 meq daily for 4 days and magnesium 500 mg po bid x1 week. moniter renal function and electrolytes outpatient. anemia of acute blood loss on ch normocytic, likley of chronic disease fobt negative no obvious bleeding sources or need for blood transfusion at this time s/p 4prbc -h/h . continue to moniter h/h HTN- stop lisinopril /hctz due to recent leti and electrolytic abnormalities, blood pressure is stable currently-consider follow-up out patiently with PCP if needed can started on antihypertensive outpatient. Health Concerns: encouraged for hydration ,continue potassium 10 meq daily for 4 days and magnesium 500 mg po bid x1 week. ceftin 500 mg bid x3 more days. stop lisinopril/hctz. moniter for hematuria and cbc . continue flomax and finasteride. follow up with cbc,bmp,magnesium . follow up with pcp,nephro,urology. Plan of Treatment: as above. Assessment: as above. Patient Instructions: Price Catheter Placement and Care (DC) Discharge Date/Time: 10/06/24 13:52
[2024-10-06] MEDS: cefuroxime axetiL 500 MG TABLET PO (13:11)
== END 2024-10-06 13:52 | disposition home health service (06) | DRG 683 ==
LOC: HO.ED 09-30 02:16 → HO.EDOVER 09-30 04:11 → HO.IMC 09-30 07:45
PROVIDERS: Nurse Practitioner Family; Physician Assistant Medical; Admitting Provider Physician Assistant; Emergency Provider Emergency Medicine Emergency Medical Services; PCP Family Medicine; Visit Provider Internal Medicine
DX: N17.9 Acute kidney failure, unspecified (principal); D62 Acute posthemorrhagic anemia; N13.8 Other obstructive and reflux uropathy; F05 Delirium due to known physiological condition; I10 Essential (primary) hypertension; R31.9 Hematuria, unspecified; D63.8 Anemia in other chronic diseases classified elsewhere; E87.5 Hyperkalemia; N13.6 Pyonephrosis; I95.9 Hypotension, unspecified; N40.1 Benign prostatic hyperplasia with lower urinary tract symptoms; Z20.822 Contact with and (suspected) exposure to COVID-19; Z87.891 Personal history of nicotine dependence; Z79.899 Other long term (current) drug therapy
CPT/HCPCS: 0241U; 36415; 74018; 74176; 76775; 80048; 80053; 81001; 82272; 82550; 82570; 82607; 82728; 82746; 82803; 82947; 83540; 83605; 83735; 84156; 84443; 85014; 85018; 85025; 85652; 86140; 86850; 86900; 86901; 86923; 87040; 87086; 87338; 93005; 96127; 97116; 97162; 99212; 99285; C1758; J0613; J0696; J1171; J2470; J3475; P9016; P9047

== ENCOUNTER → 2024-09-29 20:10 | Outpatient (BNV) | payer MEDICARE, SELFPAY | PROVIDERS: Admitting Provider Physician Assistant; Emergency Provider Emergency Medicine Emergency Medical Services; PCP Family Medicine; Visit Provider Internal Medicine Cardiovascular Disease | DX: R79.9 Abnormal finding of blood chemistry, unspecified (principal) | CPT/HCPCS: 93010 ==

== ENCOUNTER → 2024-09-29 20:55 | Outpatient (BNV) | payer MEDICARE, SELFPAY | PROVIDERS: Emergency Provider Emergency Medicine Emergency Medical Services; PCP Family Medicine; Visit Provider Radiology Diagnostic Radiology | DX: N40.0 Benign prostatic hyperplasia without lower urinary tract symptoms (principal); N17.9 Acute kidney failure, unspecified | CPT/HCPCS: 74018; 74176 ==

== ENCOUNTER 2024-09-30 02:45 | Outpatient (BNV) | payer MEDICARE, SELFPAY | END 2024-10-01 13:47 | PROVIDERS: Admitting Provider Physician Assistant; Emergency Provider Emergency Medicine Emergency Medical Services; PCP Family Medicine; Visit Provider Radiology Diagnostic Radiology | DX: N13.30 Unspecified hydronephrosis (principal) | CPT/HCPCS: 76775 ==

== ENCOUNTER → 2024-09-30 02:45 | Outpatient (BNV) | payer MEDICARE, SELFPAY | PROVIDERS: Admitting Provider Physician Assistant; Emergency Provider Emergency Medicine Emergency Medical Services; PCP Family Medicine; Visit Provider Internal Medicine Hypertension Specialist | DX: N17.9 Acute kidney failure, unspecified (principal) | CPT/HCPCS: 99223 ==

== ENCOUNTER → 2024-09-30 02:45 | Outpatient (BNV) | payer MEDICARE, SELFPAY | PROVIDERS: Admitting Provider Physician Assistant; Emergency Provider Emergency Medicine Emergency Medical Services; PCP Family Medicine; Visit Provider Physician Assistant | DX: N39.0 Urinary tract infection, site not specified (principal); D64.9 Anemia, unspecified; N13.30 Unspecified hydronephrosis; N32.0 Bladder-neck obstruction; N17.9 Acute kidney failure, unspecified | CPT/HCPCS: 99223; 99231; 99232; 99239; 99499; G0180 ==

== ENCOUNTER 2024-10-08 04:21 | Emergency (ER) | payer MEDICARE, SELFPAY ==
[2024-10-08 04:32] VITALS: BP 127/45; PULSE 91; RESP 17; TEMP 36.9; O2SAT 99; BMI 30.3
--- NOTE | 2024-10-08 05:45 | PC.NURSE ---
pt approached triage door to alert RN that price bag has blood in it, pt price noted at this time to have 50ml of red tinged urine. labs placed at this time. chargemaster analyst aware.
[2024-10-08 06:04] LABS: Basophils Percent Auto 0.3 % (0-2); Eosinophils Absolute Auto 0.3 X10*3/uL (0.0-0.4); Eosinophils Percent Auto 2.1 % (0-4); Hemoglobin 11.7 g/dl (14.0-18.0); Imm Gran Abs Auto 0.26 X10*3/uL (0.00-0.03); Imm Gran Pct Auto 1.8 % (0.0-0.4); Lymphocytes Absolute Auto 1.7 X10*3/uL (1.2-4.9); Lymphocytes Percent Auto 11.8 % (20-40); MANUAL DIFF FLAG NO; Mean Corpuscular HGB Conc 33.4 g/dl (31.0-36.0); Mean Corpuscular Hemoglobin 30.5 pg (27.0-33.0); Mean Corpuscular Volume 91.4 fL (80.0-98.0); Mean Platelet Volume 10.8 fL (9.4-12.4); Monocytes Percent Auto 6.7 % (2-11); Neutrophils Absolute Auto 11.3 x10*3/uL (2.0-8.3); Neutrophils Percent Auto 77.3 % (45-73); Platelet Count 315 X10*3/uL (160-400); Red Blood Count 3.83 X10*6/uL (4.60-5.80); Red Cell Distribution Width 13.9 % (11.0-16.0); White Blood Count 14.6 X10*3/uL (4.8-10.8)
--- NOTE | 2024-10-08 06:20 | PC.NURSE ---
blood tinged uo noted in leg bag, no blood clots. pt denies discomfort at this time.
--- NOTE | 2024-10-08 06:33 | ED.MALEGU ---
HPI - Male Genitourinary General Chief complaint: Urogenital-Male Stated complaint: price is not draining Time Seen by Provider: 10/08/24 06:27 Source: patient, family, RN notes reviewed and old records reviewed Mode of arrival: ambulatory Limitations: no limitations History of Present Illness ED Provider: Oswaldo HPI Narrative: Patient is a 74-year-old male with history of HTN, HLD, elevated PSA, anemia, recent admission for LETI presenting to the emergency department stating that he feels his indwelling urinary catheter is not draining correctly. States that he was looking at the tubing at home, noted that there was urine in the tubing which was not draining down into the leg bag. Also notes that his urine is darker than normal, concerned for hematuria. Denies abdominal, back or flank pain. Denies fevers. Bladder scan done on arrival notable for 12mLs. Currently on cefuroxime for UTI from recent admission. MD Complaint: other Onset (ago): hour(s) Related Data Home Medications ?Medication ?Instructions ?Recorded ?Confirmed famotidine 20 mg tablet (Pepcid AC) 40 mg PO BID 09/30/24 10/07/24 Previous Rx's ?Medication ?Instructions ?Recorded finasteride 5 mg tablet 5 mg PO DAILY 90 days #90 tabs 10/02/24 tamsulosin 0.4 mg capsule 0.4 mg PO DAILY 90 days #90 caps 10/02/24 cefuroxime axetil 500 mg tablet 500 mg PO Q12H #6 tabs 10/06/24 magnesium gluconate 27 mg 27 mg PO BID #14 tabs 10/06/24 magnesium (500 mg) tablet potassium chloride 10 mEq 10 meq PO DAILY #4 tabs 10/06/24 tablet,extended release Allergies Allergy/AdvReac Type Severity Reaction Status Date / Time amoxicillin Allergy Unknown hives Verified 10/08/24 04:34 Penicillins Allergy short of Verified 10/08/24 04:34 breath Review of Systems Review of Systems: As per HPI. Yes all other systems are reviewed and are negative Constitutional: Constitutional: Reports as per HPI [facility] Past Medical History Medical History (Updated 10/08/24 @ 09:44 by Najma Chacon NP) Hypercholesterolemia Hypertension Tennis elbow Social History Social History (Updated 08/07/24 @ 11:24 by Suzan Jolly CMA) Household Members: Spouse Housing: House Do you presently have visiting nurse or other home services: No Alcohol intake: current Alcohol intake frequency: does not drink Patient Tobacco Use Status: Former Tobacco user e-Cigarette/Vaping Use: Never Used Second Hand Smoke Exposure: No Advance Directives: Yes Advance Directives on File: No Do you have a plan to hurt others: No Plan service: No Current occupational status: retired Current occupational exposures/hazards: No Cognitive needs: No Hearing needs: No Vision needs: No Physical Exam Vital Signs: Vital Signs: Last Vital Signs Temp 98.5 F 10/08/24 04:32 Pulse 86 10/08/24 07:05 Resp 14 10/08/24 07:05 BP 137/72 10/08/24 07:05 Pulse Ox 100 10/08/24 07:05 O2 Del Method Room Air 10/08/24 07:05 BMI result Body Mass Index 30.3 Vital signs have been reviewed and appear to be correct. Blood pressure normal. Heart rate normal. Respiratory rate normal. Temperature normal. Oxygen saturation normal. Const: General: cooperative, healthy appearing and no acute distress Orientation/consciousness: oriented to person, oriented to place, oriented to time and patient oriented x3 Limitations: no limitations HEENT: Head: Yes normocephalic and Yes atraumatic Ears: external ears normal General nose exam: Normal external nose present Face and sinus: Yes face symmetric Mouth: oropharynx normal and moist mucous membranes Throat: Yes uvula midline Eyes: Pupils: Equal, round and reactive pupils present Neck: Neck: Yes normal visual inspection and Yes supple Resp: Effort & Inspection: normal respiratory effort and able to speak in complete sentences Auscultation: clear to auscultation bilaterally Cardio: Rate: regular rate Rhythm: regular rhythm Heart sounds: S1 normal heart sound present and S2 normal heart sound present GI: Palpation (GI): Soft to palpation and nontender Auscultation: normoactive bowel sounds : Other: indwelling catheter in place on arrival, dark jyothi urine noted in leg bag General: Yes no CVA tenderness Back/Spine/Pelvis: Back: no CVA tenderness Skin: General skin exam: elasticity normal and turgor normal Neuro: General: oriented to person, oriented to place, oriented to time, patient oriented x3, moves all extremities, no focal motor deficits and CN's II-XI intact bilaterally Cranial nerves: Yes Equal, round and reactive pupils present Cognition (Neuro): normal cognition Extrem: General: Yes full ROM, Yes no pedal edema and Yes no calf tenderness Psych: Mental Status: mental status grossly normal Affect: normal affect Thought process: Normal thought process present Medical Decision Making Medical Decision Making [facility] Narrative: Patient is a 74-year-old male with history of HTN, HLD, elevated PSA, anemia, recent admission for LETI presenting to the emergency department stating that he feels his indwelling urinary catheter is not draining correctly. On exam patient is awake, A+Ox3, VS WNL, afebrile, normal neurological exam without focal deficits, physical exam findings as above. Given reported symptoms and physical exam findings, initial differential includes but is not limited to urinary retention, UTI, hydronephrosis, LETI. Labs notable for leukocytosis, BUN elevated, similar to discharge, normal creatinine. UA notable for 2+ leukocytes, 3+ blood, negative nitrites, no bacteria. He is still on cefuroxime since recent discharge. Patient requesting discharge prior to results of viral panel. I am comfortable with this, will call patient with any positive results. Follow up with PCP and Dr. Candelario. Return precautions and catheter care discussed at bedside. Patient verbalized understanding of and agreement with plan. Differential Diagnosis Differential Diagnoses: The differential diagnosis associated with the presentation includes as per [facility] Admission/Observation Consideration of admission/observation: Escalation of care including admission/observation considered Patient would have been admitted to the hospital had their work up had any findings where hospital admission was appropriate and their clinical presentation warranted hospital admission. Lab Data [facility] Lab Attestation statement: I reviewed the patient's lab results. as per [facility] 10/08/24 06:00 10/08/24 06:00 Labs: Lab Results 10/08/24 10/08/24 Range/Units 06:00 08:23 WBC 14.6 H (4.8-10.8) X10*3/uL RBC 3.83 L D (4.60-5.80) X10*6/uL Hgb 11.7 L (14.0-18.0) g/dl Hct 35.0 L (42.0-52.0) % MCV 91.4 D (80.0-98.0) fL MCH 30.5 (27.0-33.0) pg MCHC 33.4 (31.0-36.0) g/dl RDW 13.9 (11.0-16.0) % Plt Count 315 D (160-400) X10*3/uL MPV 10.8 (9.4-12.4) fL Immature Gran % (Auto) 1.8 H (0.0-0.4) % Neut % (Auto) 77.3 H (45-73) % Lymph % (Auto) 11.8 L (20-40) % [place] % (Auto) 6.7 (2-11) % Eos % (Auto) 2.1 (0-4) % Baso % (Auto) 0.3 (0-2) % Lymph # (Auto) 1.7 (1.2-4.9) X10*3/uL [place] # (Auto) 1.0 (0.1-1.2) X10*3/uL Eos # (Auto) 0.3 (0.0-0.4) X10*3/uL Baso # (Auto) 0.0 (0.0-0.2) X10*3/uL Abs Immat Gran (auto) 0.26 H (0.00-0.03) X10*3/uL Absolute Neuts (auto) 11.3 H (2.0-8.3) x10*3/uL Absolute Nucleated RBC 0.000 (0.0-0.012) X10*3/uL Nucleated RBC % (auto) 0.0 (0.0-0.2) /100WBC Sodium 136 (135-145) mmol/L Potassium 4.4 (3.3-5.1) mmol/L Chloride 103 (96-108) mmol/L Carbon Dioxide 21 L (22-29) mmol/L Anion Gap 16 (12-20) BUN 35 H (9-16) mg/dL Creatinine 1.31 (0.5-1.4) mg/dL Estim Creat Clear Calc 57.4 Estimated GFR 53 Random Glucose 108 (60-115) mg/dL Calcium 8.7 D (8.4-10.2) mg/dL Total Bilirubin 0.5 (0.0-1.0) mg/dL AST 37 (5-37) U/L ALT 44 H (0-40) U/L Alkaline Phosphatase 58 (39-117) U/L Total Protein 7.6 (6.5-8.0) g/dL Albumin 4.1 (3.5-5.0) g/dL Urine Color Red A Urine Appearance Cloudy Urine pH 5.5 (5.0-9.0) Ur Specific [place] 1.015 (1.005-1.025) Urine Protein 300 (3+) H (Neg-Trace) mg/dL Urine Glucose (UA) Negative (Negative) mg/dL Urine Ketones Negative (Negative) mg/dL Urine Blood Large (3+) H (Negative) Urine Nitrite Negative (Negative) Ur Leukocyte Esterase Moderate (2+) H (Negative) Urine RBC >20 H (0-2) /HPF Urine WBC 11-20 H (0-5) /HPF Ur Squamous Epith Cells 0-2 (0-2) /HPF Urine Bacteria None Seen (None Seen) Hyaline Casts 0-2 (0-2) /LPF External Record Review External record reviewed: Inpatient record, Office record and Outpatient record Discharge Plan Discharge Clinical Impression: Price catheter problem Patient Disposition: Home, Self-Care Instructions: Price Catheter Placement and Care (ED) Additional Instructions: You were evaluated in the emergency department today for a problem with your urinary catheter. The catheter appears to be draining normally at this time. Complete the full course of antibiotics previously prescribed to you. You were tested for flu, Covid, and RSV which were still pending at the time of discharge. You will be contacted with any positive results. Follow up with your urologist, Dr. Candelario, for any other issues with the catheter. Return to the emergency department if you develop fever, abdominal, back, or flank pain, persistent vomiting, or any other new or concerning symptoms. Prescriptions: No Action famotidine [Pepcid AC] 20 mg Tablet 40 mg PO BID tamsulosin 0.4 mg Capsule 0.4 mg PO DAILY 90 Days Qty: 90 0RF finasteride 5 mg Tablet 5 mg PO DAILY 90 Days Qty: 90 0RF cefuroxime axetil 500 mg Tablet 500 mg PO Q12H Qty: 6 0RF potassium chloride 10 mEq tablet extended release 10 meq PO DAILY Qty: 4 0RF magnesium gluconate 27 mg magnesium (500 mg) tablet 27 mg PO BID Qty: 14 0RF Referrals: Karson Candelario MD [Physician] - Print Language: Chinese
[2024-10-08 06:34] LABS: Alanine Aminotransferase 44 U/L (0-40); Albumin Level 4.1 g/dL (3.5-5.0); Alkaline Phosphatase 58 U/L (39-117); Anion Gap 16 (12-20); Aspartate Amino Transferase 37 U/L (5-37); Bilirubin Total 0.5 mg/dL (0.0-1.0); Blood Urea Nitrogen 35 mg/dL (9-16); Calcium 8.7 mg/dL (8.4-10.2); Carbon Dioxide 21 mmol/L (22-29); Chloride 103 mmol/L (96-108); Creatinine Clr Calc Pharmacy 57.4; Estimated Glomerular Filt Rate 53; Glucose Random 108 mg/dL (60-115); Potassium 4.4 mmol/L (3.3-5.1); Sodium 136 mmol/L (135-145); Total Protein 7.6 g/dL (6.5-8.0)
[2024-10-08 07:05] VITALS: BP 137/72; PULSE 86; RESP 14; O2SAT 100
--- NOTE | 2024-10-08 08:22 | PC.NURSE ---
Mcpherson emptied for 375, urine sample obtained/sent.
[2024-10-08 08:31] LABS: Appearance Urine Cloudy; Color Urine Red; Glucose Urine UA Negative (Negative); Leukocyte Esterase Urine Moderate (2+) (Negative); Nitrite Urine Negative (Negative); PH 5.5 (5.0-9.0); Specific Gravity - Urine 1.015 (1.005-1.025); UMIC TRIGGER UACC YES; Urine Blood Large (3+) (Negative); Urine Ketones Negative (Negative); Urine Protein 300 (3+) mg/dL (Neg-Trace)
[2024-10-08 08:38] LABS: Bacteria Urine None Seen (None Seen); Hyaline Casts Urine 0-2 /LPF (0-2); RBC Urine >20 /HPF (0-2); Squamous Epithelial Cell Urine 0-2 /HPF (0-2); UACC Culture Trigger YES
--- NOTE | 2024-10-08 08:48 | MHC.CM.ED ---
Patient is currently in ER. Was d/c'd from [facility] 10/06. Received notification patient was referred to [facility]. Return referral made in [facility] so agency can follow for d/c needs.
--- NOTE | 2024-10-08 09:23 | PC.NURSE ---
Mcpherson leg bag changed. 100cc in leg bag prior to change (was emptied after obtaining urine sample).
[2024-10-08 09:49] LABS: Influenza A PCR NEGATIVE (Negative); Influenza B PCR NEGATIVE (Negative); Resp Syncy Virus RNA Qual PCR NEGATIVE (Negative); SARS COV2 PCR INHOUSE NEGATIVE (Negative)
--- NOTE | 2024-10-08 10:15 | PC.NURSE ---
Pt discharged by ED provider Najma JEROME
== END 2024-10-08 10:15 | disposition home or self-care (01) ==
PROVIDERS: Registered Nurse Emergency; Emergency Provider Emergency Medicine; PCP Family Medicine
DX: T83.098A Other mechanical complication of other urinary catheter, initial encounter (principal); Y73.8 Miscellaneous gastroenterology and urology devices associated with adverse incidents, not elsewhere classified; Y92.89 Other specified places as the place of occurrence of the external cause; Z03.818 Encounter for observation for suspected exposure to other biological agents ruled out; Z79.899 Other long term (current) drug therapy; Z87.891 Personal history of nicotine dependence
CPT/HCPCS: 0241U; 36415; 80053; 81001; 85025; 87086; 99283

== ENCOUNTER 2024-10-13 10:49 | Outpatient (AMB) | payer MEDICARE, SELFPAY ==
--- NOTE | 2024-10-13 11:02 | A.OFFPC_ITS ---
Vital Signs 10/13/24 11:04 Height 5 ft 11 in Weight 194 lb BMI 27.1 BP 130/60 Blood Pressure Location Rt brachial Position Sitting Respiration 14 Pulse 85 Pulse Source Pulse Oximeter Temp 98.2 F Temp Source Oral Pulse Oximetry (%) 98 Oxygen Delivery Method Room Air Intake Visit Reasons: acute kidney issues dc 10/06 [facility] [place] Intake Note: TCM Allergies amoxicillin Allergy (Unknown, Verified 10/13/24 11:04) hives Penicillins Allergy (Verified 10/13/24 11:04) short of breath Medication List - Last Reconciled 10/13/24 by Nathan Ferrell MD diphenhydramine HCl (Benadryl) 25 mg PO BEDTIME PRN docusate sodium (Colace) 100 mg PO DAILY famotidine (Pepcid AC) 40 mg PO BID finasteride 5 mg PO DAILY 90 days tamsulosin 0.4 mg PO DAILY 90 days Tobacco use date assessed: 12/31/23 Dental Screening Dental Screen Date: 12/31/23 HPI acute kidney issues dc 10/06 [facility] [place] HPI Details 74 y/o male presents to / hospital dis charge visit. Was seen 09/29/24 to 10/06/24 for LETI, significant hyperkalemia. Per note, LETI with subsequent hyperkalemia, hydoureteronpehorisis secondary to bladder outlet obstruction: Patient was admitted to the hospital UA sent, CT abdomen-marked enlargement of the prostate gland with likely bladder outlet obstruction resulting in moderate bilateral hydro ureteral nephrosis, likely the etiology of renal failure with obstructive uropathy, mild elevated WBC count. Price was placed, pt also had hematuria. Stopped lisinopril/HCTZ, ceftin 500mg b.i.d. x3 days. Encouraged hydration, continued potassium 10 meq daily for 4 days and magnesium 500mg po b.i.d. x1 week. Kidney functions have been improving at discharge s/p price catheter. Also on finasteride 5mg, tamsulosin 0.4mg daily. TCM TCM Information Date of Discharge 10/08/24 Discharged From [facility] Interactive Contact Date (Reference documentation from this date) 10/13/24 [facility] Medical History (Updated 10/13/24 @ 11:44 by Gee Cuello) Hypertension Hypercholesterolemia Tennis elbow Social History (Updated 12/12/24 @ 11:24 by SHELIA August Household Members: Spouse Housing: House Do you presently have visiting nurse or other home services: No Alcohol intake: current Alcohol intake frequency: does not drink Patient Tobacco Use Status: Former Tobacco user e-Cigarette/Vaping Use: Never Used Second Hand Smoke Exposure: No service: No Current occupational status: retired Current occupational exposures/hazards: No Cognitive needs: No Hearing needs: No Vision needs: No Questionnaire PHQ-9 Over the last 2 weeks, how often have you been bothered by any of the following problems? 9. Thoughts that you would be better off or of hurting yourself in some way: not at all Source: Developed by Drs. Don Flynn, Gauri Cevallos, Obey Wilkinson and colleagues, with an educational cindy from Private Practice. Thrive Questionnaire Date Thrive assessed: 09/26/24 I am a: Patient What is your living situation today?: I have a steady place to live Within the past 12 months, did the food you bought not last and you didn't have the money to get more?: Never true Within the past 12 months, did you worry whether your food would run out before you got money to buy more?: Never true Do you have trouble paying for medicines?: No Do you have trouble getting transportation to medical appointments?: No Do you have trouble paying your heating and electricity bill?: No Do you have trouble taking care of your child, family member or friend?: No Do you have trouble with day-to-day activities such as bathing, preparing meals, shopping, managing finances, etc.?: No Are you currently unemployed and looking for a job?: No Are you interested in more education?: No Please select the resources that you would like help with: None Currently or been in a relationship where the following occur: No concerns reported THRIVE Score: 0 SRIDHAR-7 AMB Questionnaire SRIDHAR-7 Date SRIDHAR - 7 assessed: 12/31/23 Source: Developed by Drs. Don Flynn, Gauri Cevallos, Obye Wilkinson and colleagues, with an educational cindy from Private Practice. Review of Systems Const Denies chills, Denies fatigue, Denies fever(s), Denies headache(s) and Denies weakness ENT Denies dizziness and Denies headache(s) Card Denies chest pain, Denies lightheadedness, Denies dyspnea and Denies other (Palpitations) Resp Denies cough, Denies dyspnea, Denies wheezing and Denies other ( shortness of breath) Musc Denies numbness and Denies tingling Neuro Denies dizziness, Denies headache(s), Denies numbness, Denies tingling, Denies paresthesias and Denies weakness Psych Denies anxiety and Denies depression Endo Denies fatigue Aller/Immun Denies wheezing Physical exam (Primary Care) Vital Signs: Last Vital Signs Temp 98.2 F 10/13/24 11:04 Pulse 85 10/13/24 11:04 Resp 14 10/13/24 11:04 BP 130/60 10/13/24 11:04 Pulse Ox 98 10/13/24 11:04 Oxygen Delivery Method Room Air 10/13/24 11:04 BMI result Body Mass Index 27.1 Tobacco/Smoking Status: Tobacco use Status Tobacco use date assessed 12/31/23 10/13/24 11:02 Patient Tobacco Use Status Former Tobacco user 10/13/24 11:02 e-Cigarette/Vaping Use Never Used 10/13/24 11:02 Thrive Assessment: Date of Thrive Assessment Date Thrive assessed 09/26/24 10/13/24 11:02 Currently or been in a relationship where the following occur: No concerns reported Const General: no acute distress and well developed Nutritional Appearance: well nourished Orientation/consciousness: patient oriented x3 HENMT Head: Yes normocephalic and Yes atraumatic Eyes General: appearance normal, both eyes and all related structures Pupils: Equal, round and reactive pupils present EOM: EOMs intact bilaterally Resp Effort & Inspection: normal respiratory effort Auscultation: clear to auscultation bilaterally Cardio Rate: regular rate Rhythm: regular rhythm Heart sounds: S1 normal heart sound present, S2 normal heart sound present, no gallops, no murmurs and no rubs Neuro General: patient oriented x3 and gait normal Cranial nerves: Yes Equal, round and reactive pupils present Psych Affect: normal affect Coding Level of Care Code TCM High MDM <= 7 Days Diagnoses LETI (acute kidney injury) N17.9 Bladder outlet obstruction N32.0 Hyperkalemia E87.5 Anemia D64.9 Hypertension I10 Assessment & Plan Assessment & Plan (1) LETI (acute kidney injury): Code(s): N17.9 - Acute kidney failure, unspecified Category: Medical Plan: Acute?kidney?injury?secondary?to?bladder?outlet?obstruction. Creatinine?had?increased?to?above?10?but s/p Price?catheter?insertion,?creatinine?has?decreased?back?to?normal?range?at?disch arge Checking?renal?function?labs?again?today?as?well?as?electrolytes; potassium?and?magnesium?had?been?altered. Continue?Price?catheter?and?he?is?also?on?finasteride?and?tamsulosin. Due?for?Price?change?and?I?advised?him?call?his?urologist?today. (2) Bladder outlet obstruction: Code(s): N32.0 - Bladder-neck obstruction Category: Medical Plan: As?above,?now?has?indwelling?Price?catheter?which?should?be?changed Continue?finasteride?and?tamsulosin (3) Hyperkalemia: Code(s): E87.5 - Hyperkalemia Category: Medical Plan: This?had?resolved?prior?to?discharge Recheck?potassium?level?today (4) Anemia: Code(s): D64.9 - Anemia, unspecified Category: Medical Plan: Recheck?CBC?today Will?also?continue?to?monitor (5) Hypertension: Code(s): I10 - Essential (primary) hypertension Category: Medical Plan: Patient?is?off?lisinopril?and?hydrochlorothiazide?due?to?acute?renal?failure They?will?continue?to?monitor?blood?pressures?at?home Can?resume?lisinopril?when?blood?pressure?consistently?greater?than?140/90 Orders: Orders Comprehensive Met. Panel Today N17.9 - Acute kidney failure, unspecified Basic Metabolic Panel 10 Days N17.9 - Acute kidney failure, unspecified, Z00.00 - Encounter for general adult medical examination without abnormal findings Complete Blood Count Auto Diff 10 Days D64.9 - Anemia, unspecified, Z00.00 - Encounter for general adult medical examination without abnormal findings Magnesium 10 Days N17.9 - Acute kidney failure, unspecified
[2024-10-13 11:04] VITALS: BP 130/60; PULSE 85; RESP 14; TEMP 36.8; O2SAT 98; BMI 27.1
== END 2024-10-13 11:54 | disposition home or self-care (01) ==
PROVIDERS: PCP Family Medicine; Visit Provider Family Medicine
DX: N17.9 Acute kidney failure, unspecified (principal); N32.0 Bladder-neck obstruction; E87.5 Hyperkalemia; D64.9 Anemia, unspecified; I10 Essential (primary) hypertension

== ENCOUNTER 2024-10-13 12:53 | Outpatient (REF) | payer MEDICARE, SELFPAY ==
[2024-10-13 13:41] LABS: Basophils Percent Auto 0.3 % (0-2); Eosinophils Absolute Auto 0.1 X10*3/uL (0.0-0.4); Eosinophils Percent Auto 0.8 % (0-4); Hematocrit 29.6 % (42.0-52.0); Hemoglobin 9.8 g/dl (14.0-18.0); Imm Gran Abs Auto 0.17 X10*3/uL (0.00-0.03); Imm Gran Pct Auto 1.2 % (0.0-0.4); Lymphocytes Absolute Auto 1.9 X10*3/uL (1.2-4.9); Lymphocytes Percent Auto 13.2 % (20-40); MANUAL DIFF FLAG NO; Mean Corpuscular HGB Conc 33.1 g/dl (31.0-36.0); Mean Corpuscular Hemoglobin 30.8 pg (27.0-33.0); Mean Corpuscular Volume 93.1 fL (80.0-98.0); Mean Platelet Volume 10.6 fL (9.4-12.4); Monocytes Absolute Auto 1.2 X10*3/uL (0.1-1.2); Monocytes Percent Auto 8.3 % (2-11); Neutrophils Absolute Auto 10.8 x10*3/uL (2.0-8.3); Neutrophils Percent Auto 76.2 % (45-73); Platelet Count 325 X10*3/uL (160-400); Red Blood Count 3.18 X10*6/uL (4.60-5.80); Red Cell Distribution Width 13.6 % (11.0-16.0); White Blood Count 14.2 X10*3/uL (4.8-10.8)
[2024-10-13 14:02] LABS: Alanine Aminotransferase 19 U/L (0-40); Albumin Level 3.6 g/dL (3.5-5.0); Alkaline Phosphatase 82 U/L (39-117); Anion Gap 12 (12-20); Aspartate Amino Transferase 23 U/L (5-37); Bilirubin Total 0.3 mg/dL (0.0-1.0); Blood Urea Nitrogen 14 mg/dL (9-16); Calcium 8.4 mg/dL (8.4-10.2); Carbon Dioxide 23 mmol/L (22-29); Chloride 107 mmol/L (96-108); Estimated Glomerular Filt Rate > 60; Glucose Random 88 mg/dL (60-115); Magnesium 1.5 mg/dL (1.6-2.6); Potassium 3.9 mmol/L (3.3-5.1); Sodium 138 mmol/L (135-145); Total Protein 6.8 g/dL (6.5-8.0)
== END 2024-10-13 12:54 | disposition home or self-care (01) ==
LOC: HO.WFDLDS 12:53
PROVIDERS: Referring Provider Internal Medicine; Visit Provider Family Medicine
DX: Z00.00 Encounter for general adult medical examination without abnormal findings (principal); N17.9 Acute kidney failure, unspecified; D64.9 Anemia, unspecified
CPT/HCPCS: 36415; 80053; 83735; 85025; 99496

== ENCOUNTER 2024-10-29 08:36 | Outpatient (AMB) | payer MEDICARE, SELFPAY ==
--- NOTE | 2024-10-29 08:39 | A.OFFVIS_ITS ---
Intake Visit Reasons: cysto/VT(SET) Intake Note: Patient is present for Cystoscopy/VT Urology Medication:TAMSULOSIN,FINASTERIDE Antibiotic Allergy:PENICILLINS,AMOXICILLIN Blood Thinner:NONE Lot:[id number] Exp:12/05/2026 Workers Compensation Claims Examiner Required: No Allergies amoxicillin Allergy (Unknown, Verified 10/29/24 08:43) hives Penicillins Allergy (Verified 10/29/24 08:43) short of breath HPI Comments Details: Don is a pleasant male. He is a patient of Dr. Ferrell. He seen for the following urologic conditions - urinary retention - lower urinary tract symptoms Here for cystoscopy and voiding trial Failed voiding trial Large prostate on cystoscopy Catheter replaced Recommend GreenLight laser prostatectomy with suprapubic tube placement Urinary retention Recent visit to emergency room with significant urinary retention 2500 cc residual Initial creatinine 10 as evidence of acute kidney injury Initial imaging with moderate bilateral hydronephrosis and hydroureter Resolution with indwelling Mcpherson catheter Started with finasteride and doxazosin PFSH Medical History (Updated 10/13/24 @ 11:44 by Gee Cuello) Hypertension Hypercholesterolemia Tennis elbow Social History (Updated 08/07/24 @ 11:24 by Suzan Jolly CMA) Household Members: Spouse Housing: House Do you presently have visiting nurse or other home services: No Alcohol intake: current Alcohol intake frequency: does not drink Patient Tobacco Use Status: Former Tobacco user e-Cigarette/Vaping Use: Never Used Second Hand Smoke Exposure: No service: No Current occupational status: retired Current occupational exposures/hazards: No Cognitive needs: No Hearing needs: No Vision needs: No Review of Systems Const Denies chills and Denies fever(s) Card Reports no additional complaints and Denies syncope Resp Denies cough GI Denies abdominal pain and Denies heartburn Reports as per HPI and Denies change in libido Neuro Denies syncope Psych Denies change in libido Endo Denies change in libido Physical Exam Const General: cooperative, healthy appearing, comfortable and no acute distress Orientation/consciousness: patient oriented x3 HEENT Face and sinus: Yes normal facial exam Mouth: moist mucous membranes Neck Neck: Yes normal visual inspection, Yes full ROM and Yes trachea midline Chest Chest palpation & inspection: normal inspection of the chest Resp Effort & Inspection: normal respiratory effort, able to speak in complete sentences and no respiratory distress GI Inspection: Yes normal to inspection Back/Spine/Pelvis Cervical Spine: normal cervical lordosis Thoracic/Lumbar Spine: thoracic and lumbar spine normal to inspection Skin General skin exam: no rashes or lesions noted Neuro General: patient oriented x3, gait normal, tone normal and moves all extremities Extrem General: Yes normal to inspection and Yes capillary refill normal Office Procedures Cystoscopy Consent Discussed risk and benefit or proposed procedure with the patient. Information consent for procedure given to the patient. Discussed technical aspects, risks, benefits and alternatives in full. Addressed all of the patient's questions and concerns regarding the procedure. The patient demonstrated knowledge and understanding. They wish to proceed with this procedure. Preparation The patient was prepped in the usual manner. A marketing operations manager was present and in the room. Genitalia was prepped with betadine solution in a sterile manner. Lidocaine Jelly 2% was placed into the urethra and 16Fr flexible Olympus cystoscope was inserted into the meatus after adequate lubrication. Procedure Cystoscopy performed using a disposable Urovue digital 16 [place] cystoscope. 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 -- [id number] DISPOSABLE SCOPE URO-G FLEXIBLE SCOPE Procedure code (CPT) selection complete Office Meds lidocaine HCl 2 % mucosal jelly in applicator Performing Provider: Karson Candelario MD Performing Location: [facility] [place] [facility] Administered by: Abbie Campos RN on 10/29/24 09:12 Dose Route Admin Location Dispensed Lot Number Expiration Date [employer] 10 mL intra-urethral 10 mL nitrofurantoin monohydrate/macrocrystals 100 mg capsule Performing Provider: Karson Candelario MD Performing Location: [facility] [place] [facility] Administered by: Abbie Campos RN on 10/29/24 09:12 Dose Route Admin Location Dispensed Lot Number Expiration Date [employer] 100 mg PO 1 cap Results AMB Urinalysis, Automated UA Leukoctes 500 Bo/uL Last Edit by ADIS Baez on 10/29/24 09:14 UA Nitrite Positive Last Edit by ADIS Baez on 10/29/24 09:14 UA Urobilinogen 3.5 mg/dL Last Edit by ADIS Baez on 10/29/24 09:1 4 UA Protein 1 mg/dL Last Edit by ADIS Baez on 10/29/24 09:14 UA pH 6.0 Last Edit by Cesia Maria CCM on 10/29/24 09:14 UA Blood 10 Eh/uL Last Edit by ADIS Baez on 10/29/24 09:14 UA Specific Tracy 1.015 Last Edit by ADIS Baez on 10/29/24 09: 14 UA Ketone Negative Last Edit by ADIS Baez on 10/29/24 09:14 UA Bilirubin 0 mg/dL Last Edit by ADIS Baez on 10/29/24 09:14 UA Glucose 0 mg/dL Last Edit by ADIS Baez on 10/29/24 09:14 Results Reviewed Results Reviewed: Laboratory Last Values Urine pH (Auto) 6.0 10/29/24 09:13 Specific Tracy (Auto) 1.015 10/29/24 09:13 Urine Protein (Auto) 1 mg/dL 10/29/24 09:13 Glucose (UA)(Auto) 0 mg/dL 10/29/24 09:13 Urine Ketones (Auto) Negative 10/29/24 09:13 Urine Blood (Auto) 10 Eh/uL 10/29/24 09:13 Urine Nitrite (Auto) Positive 10/29/24 09:13 Urine Bilirubin (Auto) 0 mg/dL 10/29/24 09:13 Urine Urobilinogen (Auto) 3.5 mg/dL 10/29/24 09:13 Leukocyte Esterase (Auto) 500 Bo/uL 10/29/24 09:13 Assessment & Plan Assessment & Plan (1) LETI (acute kidney injury): Code(s): N17.9 - Acute kidney failure, unspecified Category: Medical (2) Bladder outlet obstruction: Code(s): N32.0 - Bladder-neck obstruction Category: Medical (3) Hydroureteronephrosis: Code(s): N13.30 - Unspecified hydronephrosis Category: Medical Plan We discussed the nature of the decision and reasonable options for performing a prostate intervention. Interventions include TURP, GreenLight laser enucleation of the prostate, GreenLight laser ablation of the prostate, transurethral incision of the prostate, and I-Tend prostate procedure. Options such as medical therapy were discussed. The relative uncertainties and benefits related to each alternate procedure were adequately discussed. General surgical risks including, but not limited to, pain, bleeding, infection, myocardial infarction, pulmonary embolus, deep vein thrombosis and cerebrovascular accident which may result in further hospitalization were discussed. Full disclosure of the procedure as well as all major risks, benefits and complications were discussed including but not limited to damage to the urethra or bladder neck, recurrent BPH, retrograde ejaculation, bladder infection, urge, de mikey frequency, incomplete emptying, dysuria, remote chance of erectile dysfunction, epididymitis, and meatal stenosis. The success rate of the procedure was discussed. Success of the procedure in the short-term does not necessarily guarantee that long-term success will be maintained. Suitable follow up will need to be maintained. The patient showed understanding of discussion. An opportunity was provided for questions to be answered and wishes to proceed with the following procedure. - cystoscopy, suprapubic tube, GreenLight laser prostate Orders: Orders AMB Cystoscopy Today N32.0 - Bladder-neck obstruction AMB Urinalysis Automated 10/28/24 Z13.9 - Encounter for screening, unspecified Patient Instructions: This note is constructed using voice recognition software. While every effort has been made to ensure accuracy product safety and standards engineer errors may have been included. Imaging studies, laboratory and physical exam results were discussed and reviewed in detail. No major barriers to patient understanding were identified. An opportunity to ask questions regarding the treatment plan was provided. All questions were answered. The patient expressed understanding and agreement with the above treatment plan. The patient is aware they should contact our office by phone for worsening of their current condition or the appearance of new urologic symptoms. Compliance is encouraged with any medications and followup testing that is ordered. It is a privilege to participate in the urologic care of your patient. If you have any questions or concerns regarding treatment for the above conditions, or other urologic issues, please do not hesitate to contact me. The office telephone contact is [phone]. Sincerely, Dr Karson Candelario MD, [facility] - Urology Compassionate Specialist Care for the Genitourinary System Coding Level of Care Code Est Pt Level 4 (89965) Complex EM visit Add On G2211 Diagnoses LETI (acute kidney injury) N17.9 Bladder outlet obstruction N32.0 Hydroureteronephrosis N13.30 CPT Codes Cystoscopy - CPT: [id number] ([id number])
== END 2024-10-29 10:40 | disposition home or self-care (01) ==
PROVIDERS: PCP Family Medicine; Visit Provider Urology
DX: N17.9 Acute kidney failure, unspecified (principal); N32.0 Bladder-neck obstruction; N13.30 Unspecified hydronephrosis; Z13.9 Encounter for screening, unspecified
CPT/HCPCS: 52000; 99214; G2211

== ENCOUNTER → 2024-10-29 08:36 | Outpatient (BNVA) | payer MEDICARE, SELFPAY | PROVIDERS: PCP Family Medicine; Visit Provider Urology | DX: N32.0 Bladder-neck obstruction (principal); N13.30 Unspecified hydronephrosis; N17.9 Acute kidney failure, unspecified; Z46.6 Encounter for fitting and adjustment of urinary device; Z96.0 Presence of urogenital implants | CPT/HCPCS: 52000; 81003; 99212 ==

== ENCOUNTER 2024-11-04 | Outpatient (REF) | payer MEDICARE, SELFPAY ==
[2024-11-05 09:35] LABS: Appearance Urine Turbid; Color Urine Yellow; Glucose Urine UA Negative (Negative); Leukocyte Esterase Urine Large (3+) (Negative); Nitrite Urine Negative (Negative); UMIC TRIGGER UA YES; Urine Blood Moderate (2+) (Negative); Urine Ketones Negative (Negative); Urine Protein 300 (3+) mg/dL (Neg-Trace)
[2024-11-05 09:49] LABS: Bacteria Urine 4+ (None Seen); WBC Urine >50 /HPF (0-5)
== END 2024-11-04 00:01 | disposition home or self-care (01) ==
LOC: HO.LNP
PROVIDERS: Visit Provider Family Medicine
DX: N39.0 Urinary tract infection, site not specified (principal)
CPT/HCPCS: 81001; 81003; 87086

== ENCOUNTER → 2024-11-06 14:09 | Outpatient (BNVA) | payer MEDICARE, SELFPAY | PROVIDERS: PCP Family Medicine; Visit Provider Family Medicine ==

== ENCOUNTER 2024-11-07 08:42 | Outpatient (REF) | payer MEDICARE, SELFPAY ==
[2024-11-07 11:50] LABS: Anion Gap 19 (12-20); Blood Urea Nitrogen 35 mg/dL (9-16); Calcium 9.5 mg/dL (8.4-10.2); Carbon Dioxide 20 mmol/L (22-29); Chloride 100 mmol/L (96-108); Estimated Glomerular Filt Rate 20; Glucose Random 94 mg/dL (60-115); Potassium 4.1 mmol/L (3.3-5.1); Sodium 135 mmol/L (135-145)
== END 2024-11-07 08:43 | disposition home or self-care (01) ==
LOC: HO.WFDLDS 08:42
PROVIDERS: Visit Provider Family Medicine
DX: Z00.00 Encounter for general adult medical examination without abnormal findings (principal); N17.9 Acute kidney failure, unspecified
CPT/HCPCS: 36415; 80048

== ENCOUNTER 2024-11-10 16:08 | Emergency (ER) | payer MEDICARE, SELFPAY ==
[2024-11-10 16:21] VITALS: BP 153/83; PULSE 97; RESP 16; TEMP 37; O2SAT 98; BMI 27.3
--- NOTE | 2024-11-10 16:24 | ED.GENADULT ---
HPI - General Adult General Chief complaint: General Medical Stated complaint: uti, ref by provider. Time Seen by Provider: 11/10/24 18:34 Source: patient, RN notes reviewed and old records reviewed Mode of arrival: ambulatory Limitations: no limitations History of Present Illness ED Provider: Dinesh LOOMIS narrative: 74-year-old male presents for evaluation of lower abdominal discomfort. The patient was admitted to this facility at the beginning of September on 09/30/2024 due to bladder outlet obstruction, LETI. He still has a Mcpherson catheter in place and has been following with Dr. Adilson hou. He has plan for bladder surgery in a few weeks. The patient had a visiting nurse draw labs and the patient mentioned some mild lower abdominal discomfort. He is currently taking ciprofloxacin and has 1 dose left. The patient reports overall he feels quite well but was instructed to come here by his urology office He denies any fevers, chills. He reports that he does not have a leg bag for his catheter. He states that he clamps it during the day but drains the catheter every 3 or 4 hours. He does have a nighttime overnight bag Related Data Home Medications ?Medication ?Instructions ?Recorded ?Confirmed diphenhydramine HCl 25 mg capsule 25 mg PO BEDTIME PRN 10/13/24 11/06/24 (Benadryl) Previous Rx's ?Medication ?Instructions ?Recorded finasteride 5 mg tablet 5 mg PO DAILY 90 days #90 tabs 10/02/24 tamsulosin 0.4 mg capsule 0.4 mg PO DAILY 90 days #90 caps 10/02/24 ciprofloxacin HCl 250 mg tablet 250 mg PO BID 5 days #10 tabs 11/05/24 cefuroxime axetil 500 mg tablet 500 mg PO Q12H #14 tabs 11/10/24 Allergies Allergy/AdvReac Type Severity Reaction Status Date / Time amoxicillin Allergy Unknown hives Verified 11/10/24 16:25 Penicillins Allergy short of Verified 11/10/24 16:25 breath Review of Systems Constitutional: Constitutional: Denies body ache(s), Denies chills, Denies fever(s) and Denies frequent falls Eyes: Eyes: Denies blurry vision ENT: Denies vertigo and Denies dizziness Cardiovascular: Cardiovascular: Denies chest pain and Denies dyspnea Respiratory: Respiratory: Denies cough and Denies dyspnea Gastrointestinal: Gastrointestinal: Reports abdominal pain, Denies nausea and Denies vomiting Genitourinary: Genitourinary: Denies dysuria, Denies nocturia and Denies urinary frequency Musculoskeletal: Musculoskeletal: Denies back pain Integumentary/Breasts: Skin/Breast: Denies rash Neurologic: Denies vertigo, Denies dizziness and Denies frequent falls Psychiatric: Psychiatric: Denies anxiety [facility] Past Medical History Medical History (Updated 11/10/24 @ 19:36 by Lexx Montiel) Hypertension Hypercholesterolemia Tennis elbow Social History Social History (Updated 08/07/24 @ 11:24 by Suzan Jolly CMA) Household Members: Spouse Housing: House Do you presently have visiting nurse or other home services: No Alcohol intake: current Alcohol intake frequency: does not drink Patient Tobacco Use Status: Former Tobacco user Smoked in Last 30 Days: No e-Cigarette/Vaping Use: Never Used Second Hand Smoke Exposure: No Use of substances other than those prescribed or required for medical reasons: No Advance Directives: No Advance Directives Information Provided: Yes service: No Current occupational status: retired Current occupational exposures/hazards: No Cognitive needs: No Hearing needs: No Vision needs: No Physical Exam ED Vital Signs: Vital Signs - 24 hr 11/10/24 16:21 11/10/24 19:17 11/10/24 21:42 Temperature 98.6 F 97.7 F Pulse Rate 97 100 Respiratory Rate 16 18 20 Blood Pressure 153/83 H 137/80 143/69 H Pulse Oximetry 98 99 99 Oxygen Delivery Method Room Air Room Air Room Air BMI result Body Mass Index 27.3 Const General: healthy appearing, comfortable, no acute distress, alert and awake Nutritional Appearance: well nourished Orientation/consciousness: patient oriented x3 HENMT Head: Yes normocephalic and Yes atraumatic Eyes Eyelids: Yes eyelids normal Conjunctivae: conjunctivae normal Sclerae: sclerae normal Corneas: corneas normal Pupils: Equal, round and reactive pupils present EOM: EOMs intact bilaterally Neck Neck: Yes full ROM Resp Effort & Inspection: normal respiratory effort, able to speak in complete sentences and not labored GI Inspection: No distended Palpation (GI): Soft to palpation, not firm, nontender, no guarding and not rigid Skin General skin exam: elasticity normal Neuro General: patient oriented x3 Cranial nerves: Yes Equal, round and reactive pupils present and Yes Bilaterally intact EOM present Cognition (Neuro): normal cognition Extrem Other: Moving all extremities well without any obvious deformities Course Course Course Narrative: This is a rapid medical exam performed by Vasu Chacon NP: Additional HPI, ROS, PE not included below will be deferred to primary provider. Patient is a 74-year-old male with history of BPH with indwelling urinary catheter presenting with complaint of mid abdominal pain, currently being treated for UTI. Plan; labs, UA Reevaluation(s) Reevaluation #1: Patient re-evaluated, his catheter has only drained about 10 cc of urine. He may have a malfunctioning Mcpherson catheter, plan to the catheter in place in place a new Mcpherson catheter. Time: 20:49 Reevaluation #2: Patient had a 2nd Mcpherson catheter placed, he then had almost 2 L of somewhat cloudy, dark urine drain. The patient likely has some degree of urinary outlet obstruction again this Mcpherson catheter malfunction leading to his LETI. The patient did receive 2 L IV fluids. Given that he is now draining urine well, I feel the patient can safely be discharged he will get repeat labs this week Time: 22:24 Medications Administered Discontinued Medications Generic Name Dose Route Start Last Admin Trade Name Freq PRN Reason Stop Dose Admin Sodium Chloride 1,000 mls @ 999 mls/hr 11/10/24 19:30 11/10/24 22:14 Ns IV 11/10/24 21:30 Infused .Q1H1M BRAYAN Infusion Lidocaine HCl 10 ml 11/10/24 20:50 11/10/24 22:14 Lidocaine Hcl 2 % Urojet 10 Ml Jel.Pf.Alix TOPICAL 11/10/24 20:51 10 ml ONCE ONE Administration Medical Decision Making Medical Decision Making MDM Narrative: 74-year-old male presents for evaluation of mild lower abdominal discomfort. He has a Mcpherson catheter in place that is clamped. He reports that he just drain his catheter in the bathroom and have no discomfort whatsoever. Bladder scan shows 757 cc of urine still retained in the bladder. We will attach a bag to see how much urine is able to drain out. In the meantime, the patient does have evidence of LETI again. His current today is 2.33 which has improved greatly from the 3.12 that was 3 days ago. Electrolytes are stable I have any evidence of hyperkalemia or hypokalemia. Urinalysis is cloudy with significant amount of white blood cells and red blood cells. He has trace bacteria in a slight leukocytosis. He may have a mild UTI Differential Diagnosis Differential Diagnoses: The differential diagnosis associated with the presentation includes LETI Urinary retention Obstructive uropathy Cystitis Admission/Observation Consideration of admission/observation: Escalation of care including admission/observation considered Recommended admission for the patient, however he would prefer not to stay. We will treat with IV fluids and attempt to make sure his bladder does drain well Lab Data MDM Lab Attestation statement: I reviewed the patient's lab results. Leukocytosis, anemia chronic disease, thrombocytosis that is mild. Mild LETI as above. 11/10/24 16:38 11/10/24 16:38 Labs: Lab Results 11/10/24 Range/Units 16:38 WBC 13.7 H (4.8-10.8) X10*3/uL RBC 3.27 L (4.60-5.80) X10*6/uL Hgb 9.8 L (14.0-18.0) g/dl Hct 29.5 L (42.0-52.0) % MCV 90.2 (80.0-98.0) fL MCH 30.0 (27.0-33.0) pg MCHC 33.2 (31.0-36.0) g/dl RDW 13.5 (11.0-16.0) % Plt Count 438 H D (160-400) X10*3/uL MPV 9.7 (9.4-12.4) fL Immature Gran % (Auto) 1.5 H (0.0-0.4) % Neut % (Auto) 71.7 (45-73) % Lymph % (Auto) 17.4 L (20-40) % [place] % (Auto) 6.8 (2-11) % Eos % (Auto) 2.4 (0-4) % Baso % (Auto) 0.2 (0-2) % Lymph # (Auto) 2.4 (1.2-4.9) X10*3/uL [place] # (Auto) 0.9 (0.1-1.2) X10*3/uL Eos # (Auto) 0.3 (0.0-0.4) X10*3/uL Baso # (Auto) 0.0 (0.0-0.2) X10*3/uL Abs Immat Gran (auto) 0.20 H (0.00-0.03) X10*3/uL Absolute Neuts (auto) 9.8 H (2.0-8.3) x10*3/uL Absolute Nucleated RBC 0.000 (0.0-0.012) X10*3/uL Nucleated RBC % (auto) 0.0 (0.0-0.2) /100WBC Sodium 138 (135-145) mmol/L Potassium 3.9 (3.3-5.1) mmol/L Chloride 108 (96-108) mmol/L Carbon Dioxide 20 L (22-29) mmol/L Anion Gap 14 (12-20) BUN 33 H (9-16) mg/dL Creatinine 2.33 H (0.5-1.4) mg/dL Estim Creat Clear Calc 27.8 Estimated GFR 27 Random Glucose 104 (60-115) mg/dL Calcium 8.5 D (8.4-10.2) mg/dL Total Bilirubin 0.2 (0.0-1.0) mg/dL AST 18 (5-37) U/L ALT 8 (0-40) U/L Alkaline Phosphatase 60 (39-117) U/L Total Protein 7.8 (6.5-8.0) g/dL Albumin 3.6 (3.5-5.0) g/dL Urine Color Yellow Urine Appearance Turbid Urine pH 5.5 (5.0-9.0) Ur Specific [place] 1.010 (1.005-1.025) Urine Protein 100 (2+) H (Neg-Trace) mg/dL Urine Glucose (UA) Negative (Negative) mg/dL Urine Ketones Negative (Negative) mg/dL Urine Blood Moderate (2+) H (Negative) Urine Nitrite Negative (Negative) Ur Leukocyte Esterase Large (3+) H (Negative) Urine RBC >20 H (0-2) /HPF Urine WBC >50 H (0-5) /HPF Ur Squamous Epith Cells 0-2 (0-2) /HPF Urine Bacteria Trace (None Seen) Hyaline Casts 3-5 (0-2) /LPF Discharge Plan Discharge Clinical Impression: LETI (acute kidney injury) Patient Disposition: Home, Self-Care Instructions: Acute Kidney Injury (DC) Additional Instructions: The catheter that you presented to the ER with was not draining appropriately. This catheter was replaced with a new catheter and almost 2 L of urine was removed Your kidney function was elevated and this was likely due to the fact that your urine was not draining I recommend he get repeat blood work within the week to check your kidney function, specifically your creatinine Take cefuroxime twice daily for 7 days and follow up with your urologist Return for new or worsening symptoms Prescriptions: New cefuroxime axetil 500 mg tablet 500 mg PO Q12H Qty: 14 0RF No Action ciprofloxacin HCl 250 mg tablet 250 mg PO BID 5 Days Qty: 10 0RF tamsulosin 0.4 mg Capsule 0.4 mg PO DAILY 90 Days Qty: 90 0RF finasteride 5 mg Tablet 5 mg PO DAILY 90 Days Qty: 90 0RF diphenhydramine HCl [Benadryl] 25 mg capsule 25 mg PO BEDTIME PRN Print Language: Japanese
[2024-11-10 16:45] LABS: MANUAL DIFF FLAG NO
[2024-11-10 16:48] LABS: Appearance Urine Turbid; Color Urine Yellow; Glucose Urine UA Negative (Negative); Leukocyte Esterase Urine Large (3+) (Negative); Nitrite Urine Negative (Negative); PH 5.5 (5.0-9.0); UMIC TRIGGER UACC YES; Urine Blood Moderate (2+) (Negative); Urine Ketones Negative (Negative); Urine Protein 100 (2+) mg/dL (Neg-Trace)
[2024-11-10 16:51] LABS: Basophils Percent Auto 0.2 % (0-2); Eosinophils Absolute Auto 0.3 X10*3/uL (0.0-0.4); Eosinophils Percent Auto 2.4 % (0-4); Hematocrit 29.5 % (42.0-52.0); Hemoglobin 9.8 g/dl (14.0-18.0); Imm Gran Pct Auto 1.5 % (0.0-0.4); Lymphocytes Absolute Auto 2.4 X10*3/uL (1.2-4.9); Lymphocytes Percent Auto 17.4 % (20-40); Mean Corpuscular HGB Conc 33.2 g/dl (31.0-36.0); Mean Corpuscular Volume 90.2 fL (80.0-98.0); Mean Platelet Volume 9.7 fL (9.4-12.4); Monocytes Absolute Auto 0.9 X10*3/uL (0.1-1.2); Monocytes Percent Auto 6.8 % (2-11); Neutrophils Absolute Auto 9.8 x10*3/uL (2.0-8.3); Neutrophils Percent Auto 71.7 % (45-73); Platelet Count 438 X10*3/uL (160-400); Red Blood Count 3.27 X10*6/uL (4.60-5.80); Red Cell Distribution Width 13.5 % (11.0-16.0); White Blood Count 13.7 X10*3/uL (4.8-10.8)
[2024-11-10 17:01] LABS: Bacteria Urine Trace (None Seen); RBC Urine >20 /HPF (0-2); Squamous Epithelial Cell Urine 0-2 /HPF (0-2); UACC Culture Trigger YES; WBC Urine >50 /HPF (0-5)
[2024-11-10 17:05] LABS: Alanine Aminotransferase 8 U/L (0-40); Albumin Level 3.6 g/dL (3.5-5.0); Alkaline Phosphatase 60 U/L (39-117); Anion Gap 14 (12-20); Aspartate Amino Transferase 18 U/L (5-37); Bilirubin Total 0.2 mg/dL (0.0-1.0); Blood Urea Nitrogen 33 mg/dL (9-16); Calcium 8.5 mg/dL (8.4-10.2); Carbon Dioxide 20 mmol/L (22-29); Chloride 108 mmol/L (96-108); Creatinine Clr Calc Pharmacy 27.8; Estimated Glomerular Filt Rate 27; Glucose Random 104 mg/dL (60-115); Potassium 3.9 mmol/L (3.3-5.1); Sodium 138 mmol/L (135-145); Total Protein 7.8 g/dL (6.5-8.0)
[2024-11-10 19:17] VITALS: BP 137/80; PULSE 100; RESP 18; TEMP 36.5; O2SAT 99
[2024-11-10] MEDS: 0.9 % Sodium Chloride 1,000 ML 999 ML IV (20:12)
[2024-11-10 21:42] VITALS: BP 143/69; RESP 20; O2SAT 99
[2024-11-10] MEDS: Lidocaine HCl 2 % Urojet 10 ML JEL.PF.APP TOPICAL (22:14)
[2024-11-10 23:29] VITALS: BP 143/72; PULSE 89; RESP 16; TEMP 37; O2SAT 99
== END 2024-11-10 23:35 | disposition home or self-care (01) ==
PROVIDERS: Registered Nurse Emergency; Emergency Provider Emergency Medicine; PCP Family Medicine
DX: N17.9 Acute kidney failure, unspecified (principal); N39.0 Urinary tract infection, site not specified; R11.0 Nausea; R10.2 Pelvic and perineal pain; Z79.899 Other long term (current) drug therapy; Z87.891 Personal history of nicotine dependence
CPT/HCPCS: 36415; 51701; 80053; 81001; 85025; 87086; 96360; 96361; 99284; 99285

== ENCOUNTER → 2024-11-12 09:52 | Outpatient (BNVA) | payer MEDICARE, SELFPAY | PROVIDERS: PCP Family Medicine; Visit Provider Urology | DX: N32.0 Bladder-neck obstruction (principal); R33.9 Retention of urine, unspecified | CPT/HCPCS: 51702; 51798 ==

== ENCOUNTER → 2024-11-14 08:16 | Outpatient (BNVA) | payer MEDICARE, SELFPAY | PROVIDERS: PCP Family Medicine; Visit Provider Urology | DX: N17.9 Acute kidney failure, unspecified (principal); I10 Essential (primary) hypertension; N32.0 Bladder-neck obstruction | CPT/HCPCS: 51700; 99212 ==

== ENCOUNTER 2024-11-14 14:16 | Outpatient (AMB) | payer MEDICARE, SELFPAY ==
--- NOTE | 2024-11-14 14:28 | A.OFFVIS_ITS ---
Intake Visit Reasons: Abdominal pain Allergies amoxicillin Allergy (Unknown, Verified 11/10/24 16:25) hives Penicillins Allergy (Verified 11/10/24 16:25) short of breath [facility] Medical History (Updated 11/11/24 @ 00:00 by Ebenezer Johnson) Hypertension Hypercholesterolemia Tennis elbow Social History (Updated 08/07/24 @ 11:24 by Suzan Jolly [facility]) Household Members: Spouse Housing: House Do you presently have visiting nurse or other home services: No Alcohol intake: current Alcohol intake frequency: does not drink Patient Tobacco Use Status: Former Tobacco user e-Cigarette/Vaping Use: Never Used Second Hand Smoke Exposure: No service: No Current occupational status: retired Current occupational exposures/hazards: No Cognitive needs: No Hearing needs: No Vision needs: No Coding
--- NOTE | 2024-11-14 14:30 | A.OFFPC_ITS ---
Vital Signs 11/14/24 14:31 Height 5 ft 10 in Weight 192 lb 2 oz BMI 27.6 BP 128/54 L Blood Pressure Location Lt brachial Position Sitting Respiration 14 Pulse 95 Pulse Source Pulse Oximeter Pulse Oximetry (%) 95 Oxygen Delivery Method Room Air Intake Visit Reasons: Abdominal pain Intake Note: Follow up lab results. Hospice Clinical Supervisor Required: No Allergies amoxicillin Allergy (Unknown, Verified 11/14/24 14:30) hives Penicillins Allergy (Verified 11/14/24 14:30) short of breath Tobacco use date assessed: 11/14/24 Fall risk assessment: 1 Fall in past year Last assessed Fall Risk: 11/14/24 Dental Screening Dental Screen Date: 12/31/23 HPI Abdominal pain HPI Details 74 y/o male presents today for follow-u p?acute?kidney?injury?and repeat?kidney?injury?after?bladder?outlet?obstructions. Recent ED visit 11/10/24 for lower abd. discomfort and?bladder?outlet?obstruction. Catheter had not been draining appropriately. Was replaced and almost 2L of urine was removed. Kidney functions had been elevated, most likely due to urine not draining. Was recommended to get repeat blood work. Was given cefuroxime twice daily for 7 days. Blood pressure today 128/54, 95p. He is not on anything for his blood pressure. [facility] Medical History (Updated 11/14/24 @ 14:50 by Gee Cuello) Hypertension Hypercholesterolemia Tennis elbow Social History (Updated 11/14/24 @ 14:35 by Suzan Jolly CMA) Household Members: Spouse Housing: House Do you presently have visiting nurse or other home services: No Alcohol intake: current Alcohol intake frequency: does not drink Patient Tobacco Use Status: Former Tobacco user e-Cigarette/Vaping Use: Never Used Second Hand Smoke Exposure: No Substance Use Type: Former Substance User and Marijuana service: No Current occupational status: retired Current occupational exposures/hazards: No Cognitive needs: No Hearing needs: No Vision needs: No Questionnaire Thrive Questionnaire Date Thrive assessed: 09/26/24 I am a: Patient What is your living situation today?: I have a steady place to live Within the past 12 months, did the food you bought not last and you didn't have the money to get more?: Never true Within the past 12 months, did you worry whether your food would run out before you got money to buy more?: Never true Do you have trouble paying for medicines?: No Do you have trouble getting transportation to medical appointments?: No Do you have trouble paying your heating and electricity bill?: No Do you have trouble taking care of your child, family member or friend?: No Do you have trouble with day-to-day activities such as bathing, preparing meals, shopping, managing finances, etc.?: No Are you currently unemployed and looking for a job?: No Are you interested in more education?: No Please select the resources that you would like help with: None Currently or been in a relationship where the following occur: No concerns reported THRIVE Score: 0 SRIDHAR-7 AMB Questionnaire SRIDHAR-7 Date SRIDHAR - 7 assessed: 12/31/23 Source: Developed by Drs. Don Flynn, Gauri Cevallos, Obey Wilkinson and colleagues, with an educational cindy from [employer]. Review of Systems Const Denies chills, Denies fatigue, Denies fever(s), Denies headache(s) and Denies weakness ENT Denies dizziness and Denies headache(s) Card Denies dyspnea Resp Denies cough, Denies dyspnea, Denies wheezing and Denies other (shortness of breath) Musc Denies numbness and Denies tingling Neuro Denies dizziness, Denies headache(s), Denies numbness, Denies tingling and Denies weakness Psych Denies anxiety and Denies depression Endo Denies fatigue Aller/Immun Denies wheezing Physical exam (Primary Care) Vital Signs: Last Vital Signs Pulse 95 11/14/24 14:31 Resp 14 11/14/24 14:31 BP 128/54 L 11/14/24 14:31 Pulse Ox 95 11/14/24 14:31 Oxygen Delivery Method Room Air 11/14/24 14:31 BMI result Body Mass Index 27.6 Tobacco/Smoking Status: Tobacco use Status Tobacco use date assessed 11/14/24 11/14/24 14:35 Patient Tobacco Use Status Former Tobacco user 11/14/24 14:35 e-Cigarette/Vaping Use Never Used 11/14/24 14:35 Thrive Assessment: Date of Thrive Assessment Date Thrive assessed 09/26/24 11/14/24 14:35 Currently or been in a relationship where the following occur: No concerns reported Const General: well developed; No acute distress Nutritional Appearance: well nourished Orientation/consciousness: patient oriented x3 HENMT Head: Yes normocephalic and Yes atraumatic Eyes General: appearance normal, both eyes and all related structures Pupils: Equal, round and reactive pupils present EOM: EOMs intact bilaterally Resp Effort & Inspection: normal respiratory effort Neuro General: patient oriented x3 and gait normal Cranial nerves: Yes Equal, round and reactive pupils present Psych Affect: normal affect Coding Level of Care Code Est Pt Level 3 (55009) Diagnoses LETI (acute kidney injury) N17.9 Hypertension I10 Bladder outlet obstruction N32.0 Assessment & Plan Assessment & Plan (1) LETI (acute kidney injury): Code(s): N17.9 - Acute kidney failure, unspecified Category: Medical Plan: Patien t?initially?had?acute?kidney?injury?after?bladder?outlet?obstruction?and?creatin ine?had?returned?to?baseline/normal. Has?been?having?difficulty?with?the?catheter?not?draining?and repeat?eyelid?obstruction?with?additional?kidney?injury. This?appears?to?have?been?rectified?and?catheter?is?draining.??Creatinine?level? has?already?begun?to?decline. Had?appt today?with?Urology?though?I?do?not?see?the?ED?note?yet. Patient?says?definitive?procedure?is?planned?to ensure?patency?through?prostate. Currently?has?Mcpherson?which?is?draining. Will?recheck?renal?function?by?lab?work?next?week (2) Hypertension: Code(s): I10 - Essential (primary) hypertension Category: Medical Plan: Had?discontinued?lisinopril?and?hydrochlorothiazide?and?patient's?blood?pressure ?remains?controlled. He?will?continue?to?monitor?this (3) Bladder outlet obstruction: Code(s): N32.0 - Bladder-neck obstruction Category: Medical Plan: Continue?catheter Follow-up?with?urology?as?recommended Orders: Orders Comprehensive Met. Panel Today N17.9 - Acute kidney failure, unspecified UA and rflx microscopic Today N17.9 - Acute kidney failure, unspecified, Z00.00 - Encounter for general adult medical examination without abnormal findings Microalbumin, Random (w Creat) Today I10 - Essential (primary) hypertension, N17.9 - Acute kidney failure, unspecified
[2024-11-14 14:31] VITALS: BP 128/54; PULSE 95; RESP 14; O2SAT 95; BMI 27.6
== END 2024-11-14 15:05 | disposition home or self-care (01) ==
LOC: HO.HMCFM 14:17
PROVIDERS: PCP Family Medicine; Visit Provider Family Medicine
DX: N17.9 Acute kidney failure, unspecified (principal); I10 Essential (primary) hypertension; N32.0 Bladder-neck obstruction

== ENCOUNTER 2024-11-24 08:00 | Outpatient (REF) | payer MEDICARE, SELFPAY ==
[2024-11-24 12:35] LABS: Appearance Urine Clear; Color Urine Yellow; Glucose Urine UA Negative (Negative); Leukocyte Esterase Urine Moderate (2+) (Negative); Nitrite Urine Negative (Negative); PH 6.5 (5.0-9.0); Specific Gravity - Urine 1.015 (1.005-1.025); UMIC TRIGGER UA YES; Urine Blood Negative (Negative); Urine Ketones Negative (Negative); Urine Protein 30 (1+) mg/dL (Neg-Trace)
[2024-11-24 13:12] LABS: Bacteria Urine None Seen (None Seen); Hyaline Casts Urine 0-2 /LPF (0-2); Squamous Epithelial Cell Urine 0-2 /HPF (0-2)
[2024-11-24 13:36] LABS: Alanine Aminotransferase 8 U/L (0-40); Albumin Level 3.4 g/dL (3.5-5.0); Alkaline Phosphatase 57 U/L (39-117); Anion Gap 12 (12-20); Aspartate Amino Transferase 21 U/L (5-37); Bilirubin Total 0.3 mg/dL (0.0-1.0); Blood Urea Nitrogen 12 mg/dL (9-16); Calcium 8.7 mg/dL (8.4-10.2); Carbon Dioxide 27 mmol/L (22-29); Chloride 106 mmol/L (96-108); Estimated Glomerular Filt Rate > 60; Glucose Random 82 mg/dL (60-115); Potassium 4.2 mmol/L (3.3-5.1); Sodium 141 mmol/L (135-145); Total Protein 6.9 g/dL (6.5-8.0)
[2024-11-24 13:43] LABS: Microalbum/Creatinine Ratio Ur 193.7 ug/mg cr (<30)
== END 2024-11-24 08:01 | disposition home or self-care (01) ==
LOC: HO.WFDLDS 08:00
PROVIDERS: Referring Provider Urology; Visit Provider Family Medicine
DX: Z00.00 Encounter for general adult medical examination without abnormal findings (principal); R63.8 Other symptoms and signs concerning food and fluid intake; N17.9 Acute kidney failure, unspecified; I10 Essential (primary) hypertension; N39.0 Urinary tract infection, site not specified; R35.0 Frequency of micturition
CPT/HCPCS: 36415; 80053; 81001; 82043; 82570

== ENCOUNTER 2024-12-01 07:08 | Day surgery (SDC) | payer MEDICARE, SELFPAY ==
--- NOTE | 2024-11-28 10:58 | HO.ANESPROP2 ---
Documented by User: Olinda Pena NP 11/28/24 10:59 HPI - Anesthesia Eval Consult details Narrative: 74yo M for Laser Ablation Prostate w/Green Light, Suprapubic Tube placement PMFSH Active Problems Active Problems: All Active Problems Abdominal pain (Acute) Hypertension (Acute) Hypomagnesemia (Acute) UTI (urinary tract infection) (Acute) Anemia (Acute) Hydroureteronephrosis (Acute) Bladder outlet obstruction (Acute) Hyperkalemia (Acute) LETI (acute kidney injury) (Acute) Obstructive uropathy (Acute) Acute kidney failure (Acute) Hernia (Acute) Alteration in appetite (Acute) Abdominal bloating (Acute) Urinary frequency (Acute) Chalazion (Acute) Difficulty sleeping (Acute) Borderline anemia (Acute) Screening for colon cancer (Acute) Adult general medical exam (Acute) Low HDL (under 40) (Acute) Hypercholesterolemia (Acute) Elevated PSA (Acute) Past Medical History Medical History (Updated 11/14/24 @ 14:50 by Gee Cuello) Tennis elbow Hypercholesterolemia Hypertension Surgical History Surgical History (Updated 12/01/24 @ 07:57 by Sera Holm RN) History of surgery on arm Social History Social History (Updated 11/14/24 @ 14:35 by Suzan Jolly CMA) Household Members: Spouse Housing: House Are you a primary medicare contact specialist to a significant other at home: No Do you presently have visiting nurse or other home services: No Alcohol intake: current Alcohol intake frequency: a few times a month Patient Tobacco Use Status: Former Tobacco user Tobacco use type: Cigarette Years Smoked: 20 Smoked in Last 30 Days: No e-Cigarette/Vaping Use: Never Used Second Hand Smoke Exposure: No Use of substances other than those prescribed or required for medical reasons: No Substance Use Type: Former Substance User and Marijuana Have you been hit, kicked, punched, or otherwise hurt by someone within the past year? If so, by whom?: No Are you DNR?: No Advance Directives: No Advance Directives Information Provided: Yes (HCP is patients [facility] (per patient). No paperwork on file.) Advance Directives on File: No Poor oral hygiene: No service: No Current occupational status: retired Current occupational exposures/hazards: No Cognitive needs: No Hearing needs: No Vision needs: No Meds Allergies Allergy/AdvReac Type Severity Reaction Status Date / Time Penicillins Allergy Severe short of Verified 12/01/24 07:57 breath amoxicillin Allergy Intermediate hives Verified 12/01/24 07:57 Exam Pertinent Lab Results Pertinent Lab Results: Laboratory Tests 11/10/24 11/24/24 16:38 08:02 WBC 13.7 H Hgb 9.8 L Hct 29.5 L Plt Count 438 H D Sodium 141 Potassium 4.2 Chloride 106 Carbon Dioxide 27 BUN 12 Creatinine 0.81 Narrative Narrative: EKG 09/2024 Vent. Rate : 100 BPM Atrial Rate : 100 BPM P-R Int : 166 ms QRS Dur : 96 ms QT Int : 328 ms P-R-T Axes : 46 24 33 degrees QTcB Int : 423 ms Normal sinus rhythm Normal ECG No previous ECGs available Documented by User: Luis Daniel Castillo MD 12/01/24 08:45 [facility] Past Medical History Medical History (Updated 11/14/24 @ 14:50 by Gee Cuello) Tennis elbow Hypercholesterolemia Hypertension Family History Family history of problems with anesthesia: No Surgical History Surgical History (Updated 12/01/24 @ 07:57 by Sera Holm RN) History of surgery on arm History of Problems with Anesthesia: No Social History Social History (Updated 11/14/24 @ 14:35 by Suzan Jolly CMA) Household Members: Spouse Housing: House Are you a primary medicare contact specialist to a significant other at home: No Do you presently have visiting nurse or other home services: No Alcohol intake: current Alcohol intake frequency: a few times a month Patient Tobacco Use Status: Former Tobacco user Tobacco use type: Cigarette Years Smoked: 20 Smoked in Last 30 Days: No e-Cigarette/Vaping Use: Never Used Second Hand Smoke Exposure: No Use of substances other than those prescribed or required for medical reasons: No Substance Use Type: Former Substance User and Marijuana Have you been hit, kicked, punched, or otherwise hurt by someone within the past year? If so, by whom?: No Are you DNR?: No Advance Directives: No Advance Directives Information Provided: Yes (HCP is [facility] (per patient). No paperwork on file.) Advance Directives on File: No Poor oral hygiene: No service: No Current occupational status: retired Current occupational exposures/hazards: No Cognitive needs: No Hearing needs: No Vision needs: No Meds Allergies Allergy/AdvReac Type Severity Reaction Status Date / Time Penicillins Allergy Severe short of Verified 12/01/24 07:57 breath amoxicillin Allergy Intermediate hives Verified 12/01/24 07:57 Exam Airway Mallampati Class: II TM Dist: >3cm Neck ROM: Full Denture: Upper and Lower Assessment and Plan Assessment Anesthesia Assessment: Anesthesia Plan Discussed and Chart Reviewed Final Anesthetic Review Family History of Problems with Anesthesia: No History of Problems with Anesthesia: No NPO: Yes ASA Class: II Final Preanesthetic Review: No Changes in Pt Med Stat, Meds/Allgs Chart Reviewed, Consent Obtained/Reviewed, Anes Risks/Benef Reviewed and DNR Form (If Appl.) Patient Risk: Low Procedure Risk: Low Anesthetic Plan Anesthetic Plan: GA Disposition: Standard PACU
[2024-12-01] VITALS (8 sets, daily range): BP systolic 126–162; BP diastolic 61–70; PULSE 72–85; RESP 16; TEMP 36.7–36.9; O2SAT 97–100; BMI 27.0
[2024-12-01] MEDS: Lactated Ringers 1,000 ML 100 ML IVCONT (08:12)
--- NOTE | 2024-12-01 08:34 | MHC.SHP ---
Pre-Procedural Eval Section A - 24 Hr Update-Section A only Date of Service: 12/01/24 The patient is an INPATIENT: No Changes since office visit: No Cold of Flu in the past 2 weeks, No New Medical Problems, No Changes in Medication and No Patient answered all questions The patient has been examined within 24 hours of the surgical procedure. The History & Physical has been completed within 30 days and I have reviewed it.: Yes Section B - Complete if H&P > 30 days Chief Complaint: Retention of urine, unspecified Details of Present Illness: cystoscopy, suprapubic tube placement, GreenLight laser Allergies: Allergies Allergy/AdvReac Type Severity Reaction Status Date / Time Penicillins Allergy Severe short of Verified 12/01/24 07:57 breath amoxicillin Allergy Intermediate hives Verified 12/01/24 07:57 Review of Systems Sugical H&P ROS: Negative: Constitution, Cardiovascular, Respiratory, Neurological, Psychiatric, Hem-Onc, Allergic/Immunologic, Gastrointestinal, Genitourinary, Musculoskeletal, Integumentary, Endocrine and Eyes/Ears/Nose/Throat Exam Surgical H&P Exam: Normal: HEENT, Normal: Heart, Normal: Lungs, Normal: Extremities, Normal: Abdomen, Normal: Skin and Normal: Neurological Plan Diagnosis/Plan: Unchanged I have reviewed the history and physical and performed a pertinent physical examination on my patient. No changes have occurred unless specified. Time Spent With Patient Time: Total time managing care of this patient today ____ minutes.
[2024-12-01] MEDS: ceFAZolin Sodium/Dextrose,Iso 2 GM/50 ML PIGGYBACK IV (08:50)
--- NOTE | 2024-12-01 10:36 | W.PM.OPN ---
Operative Note Operative Note Date of Service: 12/01/24 Narrative: PreOperative Diagnosis: Bladder outlet obstruction Post Operative Diagnosis: Bladder outlet obstruction Procedure: GreenLight Laser Enucleation of the prostate CPT 42486 - modifier 22 - 100% longer than typical Surgeon: Dr Karson Candelario Anesthesia: General History of bladder outlet obstruction. Treated with alpha-stone and other medications. Urinary retention. Failed voiding trial. 200 cc prostate on imaging. Plan for GreenLight laser with suprapubic tube Risks and benefits have been discussed. Focus was placed on development of retrograde ejaculation which is a normal part of this procedure. Procedure: After informed consent was verified the patient was brought to the operating room and placed in a supine position. Anesthesia was administered per protocol. Patient was placed in modified dorsal lithotomy position and prepped and draped in a sterile fashion. Safety pause time-out was confirmed. Antibiotics have been given. A Twenty-four Croatian laser cystoscope was inserted per urethra. No abnormalities were found of the anterior and bulbar urethra. The prostatic urethra shows trilobar hypertrophy. The bladder was examined and both ureteric orifices were seen in their normal positions away from the area of interest. Bladder trabeculation Grade 2 with cellules. Bladder was examined in its entirety. No abnormalities seen. Air bubble was located at the dome of the bladder. A finder needle was inserted 2 fingerbreaths above the symphysis pubis on the abdomen into the bladder.? The needle was visualized in the bladder via cystoscopy. Local anesthetic was infiltrated subcutaneously around the needle introduction site. A small, 1cm horizontal incision was made.? A trocar introducer was advanced through the abdominal wall into the bladder under visualization. The obturator was removed and a 16 Fr price catheter placed. 7cc was used to inflate the balloon. The external portion of the trocar was removed. Using a GreenLight laser with initial settings of 80 chapa incisions were made at the 5 and 7 o'clock position. The incisions were taken down from the bladder neck down to the area just proximal of the veru. These were gradually deepened in order to define the lateral aspects of the median lobe area. The deep boundary of enucleation was defined by the prostate surgical capsule. Once clearly defined the grooves were extended in the lateral directions in order to create a deep groove. The median lobe was bilobar in nature. a midline incision was made at power of 120 w. The median lobe was then ablated and enucleated tissue released into the bladder with the laser power increased to 120 W. Large median lobe. Once the median lobe area had been cleared, attention was directed to the lateral lobes. Starting with the patient's right lateral lobe. First the 07:00 o'clock groove was further developed. This was moved in the lateral direction to undermine the tissue on the lateral side running from the bladder neck to the prostate apex. The ureteric orifice was used to guide incisions. The laser fiber was placed at the 11 o'clock position and a secondary groove was developed down to the level of prostatic capsule. The creation of a second deep groove defined a segment of intervening tissue similar to a slice of orange. At the apex of the prostate the laser was used to vertically link the two grooves releasing the intervening tissue and creating a segment of tissue. This tissue was then removed with a combination of enucleation and ablation working from the apex toward the bladder neck. Power was increased to 140 w throughout this procedure. A similar procedure was repeated on the patient's left-hand side. The only differences being the position of the lateral groove at he 5 o'clock position and the secondary groove at the 1 o'clock position, Otherwise the procedure was developed in a mirror fashion. laser power of 140 W increasing to 160w. After the majority of tissue had been debulked remnant tissue was ablated with the side fire laser and the curve of the prostate followed up each side wall clearly defining the anterior remnant strip that remained between the 11 and 1 o'clock positions. In this case the anterior tissue protruded into the prostatic fossa and was partially ablated with the laser At completion debris and pieces of prostate were removed from the bladder with irrigation. Both ureteric orifices were reviewed again in shown to be patent in away from any areas of energy damage. The apical area was reviewed and any stray mucosal ooze was controlled. PROCEDURE TIME WAS 100% LONGER THAN TYPICAL AT 90MIN. A 22 Croatian 30 cc balloon Price catheter was placed into the bladder using a flexible stylet. Clear efflux was obtained upon irrigation with a Roque piston syringe. 50 cc was placed in the balloon and gentle traction was placed. A snap was used to hold tension on the catheter to control bleeding during patient moved and transported. A drainage bag was placed. Once transportation is complete to the PACU the snap will be removed. The patient tolerated the procedure well, he was extubated in the operating and transferred in a stable condition to the recovery area. Total Power 366 kW Lasing time 47:32 Pathology: Prostate tissue Drains: Price catheter
== END 2024-12-01 11:54 | disposition home or self-care (01) ==
PROVIDERS: PCP Family Medicine; Visit Provider Urology
PROC: (CPT 52648; principal; 2024-12-01 08:50)
PROC: (CPT 52649; 2024-12-01 08:50)
DX: N40.3 Nodular prostate with lower urinary tract symptoms (principal); N13.8 Other obstructive and reflux uropathy; R33.8 Other retention of urine; I10 Essential (primary) hypertension; E78.00 Pure hypercholesterolemia, unspecified; Z79.899 Other long term (current) drug therapy; Z88.0 Allergy status to penicillin; Z87.891 Personal history of nicotine dependence
CPT/HCPCS: 52649; 88305; J0131; J0690; J1100; J2003; J2405; J2704; J2795; J3010

== ENCOUNTER → 2024-12-01 07:08 | Outpatient (BNV) | payer MEDICARE, SELFPAY | PROVIDERS: PCP Family Medicine; Visit Provider Urology | DX: N32.0 Bladder-neck obstruction (principal) | CPT/HCPCS: 52649 ==

== ENCOUNTER → 2024-12-03 10:32 | Outpatient (BNVA) | payer MEDICARE, SELFPAY | PROVIDERS: PCP Family Medicine; Visit Provider Urology | DX: N32.0 Bladder-neck obstruction (principal) | CPT/HCPCS: 51700 ==

== ENCOUNTER 2024-12-16 09:32 | Outpatient (AMB) | payer MEDICARE, SELFPAY ==
--- NOTE | 2024-12-16 10:07 | A.OFFPC_ITS ---
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 Follows up with Urology. Has had a greenlight laser procedure and also urostomy. Pt notes urine has been flowing easily. He notes he does not fully empty. Blood pressure today 130/60, 82p. [facility] Medical History (Updated 11/14/24 @ 14:50 by Gee Cuello) Tennis elbow Hypercholesterolemia Hypertension Surgical History (Updated 12/01/24 @ 07:57 by Sera Holm RN) History of surgery on arm Social History (Updated 11/14/24 @ 14:35 by Suzan Jolly CMA) Household Members: Spouse Housing: House Are you a primary pet care attendant to a significant other at home: No Do you presently have visiting nurse or other home services: No Alcohol intake: current Alcohol intake frequency: a few times a month Patient Tobacco Use Status: Former Tobacco user Tobacco use type: Cigarette Years Smoked: 20 e-Cigarette/Vaping Use: Never Used Second Hand Smoke Exposure: No Substance Use Type: Former Substance User and Marijuana service: No Current occupational status: retired Current occupational exposures/hazards: No Cognitive needs: No Hearing needs: No Vision needs: No Questionnaire Thrive Questionnaire Date Thrive assessed: 09/26/24 I am a: Patient What is your living situation today?: I have a steady place to live Within the past 12 months, did the food you bought not last and you didn't have the money to get more?: Never true Within the past 12 months, did you worry whether your food would run out before you got money to buy more?: Never true Do you have trouble paying for medicines?: No Do you have trouble getting transportation to medical appointments?: No Do you have trouble paying your heating and electricity bill?: No Do you have trouble taking care of your child, family member or friend?: No Do you have trouble with day-to-day activities such as bathing, preparing meals, shopping, managing finances, etc.?: No Are you currently unemployed and looking for a job?: No Are you interested in more education?: No Please select the resources that you would like help with: None Currently or been in a relationship where the following occur: No concerns reported THRIVE Score: 0 SRIDHAR-7 AMB Questionnaire SRIDHAR-7 Date SRIDHAR - 7 assessed: 12/31/23 Source: Developed by Drs. Don Flynn, Gauri Cevallos, Obey Wilkinson and colleagues, with an educational cindy from [employer]. Review of Systems Const Denies chills, Denies fatigue, Denies fever(s), Denies headache(s) and Denies weakness ENT Denies dizziness and Denies headache(s) Card Denies dyspnea Resp Denies cough, Denies dyspnea, Denies wheezing and Denies other (shortness of breath) Musc Denies numbness and Denies tingling Neuro Denies dizziness, Denies headache(s), Denies numbness, Denies tingling and Denies weakness Psych Denies anxiety and Denies depression Endo Denies fatigue Aller/Immun Denies wheezing Physical exam (Primary Care) Vital Signs: Last Vital Signs Temp 98.8 F 12/16/24 10:09 Pulse 82 12/16/24 10:09 Resp 14 12/16/24 10:09 BP 130/60 12/16/24 10:09 Pulse Ox 99 12/16/24 10:09 Oxygen Delivery Method Room Air 12/16/24 10:09 BMI result Body Mass Index 27.1 Tobacco/Smoking Status: Tobacco use Status Tobacco use date assessed 11/14/24 12/16/24 10:07 Patient Tobacco Use Status Former Tobacco user 12/16/24 10:07 Tobacco use type Cigarette 12/16/24 10:07 e-Cigarette/Vaping Use Never Used 12/16/24 10:07 Thrive Assessment: Date of Thrive Assessment Date Thrive assessed 09/26/24 12/16/24 10:07 Currently or been in a relationship where the following occur: No concerns reported Const General: well developed; No acute distress Nutritional Appearance: well nourished Orientation/consciousness: patient oriented x3 HENVA Head: Yes normocephalic and Yes atraumatic Eyes General: appearance normal, both eyes and all related structures Pupils: Equal, round and reactive pupils present EOM: EOMs intact bilaterally Resp Effort & Inspection: normal respiratory effort Auscultation: clear to auscultation bilaterally Cardio Rate: regular rate Rhythm: regular rhythm Heart sounds: S1 normal heart sound present, S2 normal heart sound present, no gallops, no murmurs and no rubs Neuro General: patient oriented x3 and gait normal Cranial nerves: Yes Equal, round and reactive pupils present Psych Affect: normal affect Coding Level of Care Code Est Pt Level 4 (83306) Diagnoses Hypertension I10 LETI (acute kidney injury) N17.9 Bladder outlet obstruction N32.0 Hernia K46.9 Assessment & Plan Assessment & Plan (1) Hypertension: Code(s): I10 - Essential (primary) hypertension Category: Medical Plan: Patient?with?history?of?hypertension?and?his?antihy pertensive?medications?were?discontinued?during?his?hospital?stay?for?bladder?ou tlet?obstruction. Blood?pressure?remains?controlled?with?lifestyle?changes. Will?continue?to?monitor Continue weight?control,?exercise?as?tolerated?and?avoid?salt/sodium (2) LETI (acute kidney injury): Code(s): N17.9 - Acute kidney failure, unspecified Category: Medical Plan: This?has?resolved (3) Bladder outlet obstruction: Code(s): N32.0 - Bladder-neck obstruction Category: Medical Plan: S/p?bladder?outlet?obstruction?and?has?now?had GreenLight?laser?procedure?and?also?urostomy Urine?is?flowing?easily?though?he?says?he?does?not?fully?empty?by?urinating?in?u ses?a?urostomy?tube. Follow-up?with??[facility]?as?recommended Urostomy?to wound?site?is?clean?dry?without?evidence?of?infection (4) Hernia: Code(s): K46.9 - Unspecified abdominal hernia without obstruction or gangrene Category: Medical Plan: Small?periumbilical?hernia. This?appears very?tiny?and spontaneously?reducing. He?will?know?if?as?any?pain?or?problems. Orders: Orders Basic Metabolic Panel Today I10 - Essential (primary) hypertension, Z00.00 - Encounter for general adult medical examination without abnormal findings Microalbumin, Random (w Creat) Today I10 - Essential (primary) hypertension
[2024-12-16 10:09] VITALS: BP 130/60; PULSE 82; RESP 14; TEMP 37.1; O2SAT 99; BMI 27.1
== END 2024-12-16 10:52 | disposition home or self-care (01) ==
LOC: HO.HMCFM 09:33
PROVIDERS: PCP Family Medicine; Visit Provider Family Medicine
DX: I10 Essential (primary) hypertension (principal); N17.9 Acute kidney failure, unspecified; N32.0 Bladder-neck obstruction; K46.9 Unspecified abdominal hernia without obstruction or gangrene

== ENCOUNTER → 2024-12-16 09:32 | Outpatient (BNVA) | payer MEDICARE, SELFPAY | PROVIDERS: PCP Family Medicine; Visit Provider Family Medicine | DX: I10 Essential (primary) hypertension (principal); N32.0 Bladder-neck obstruction; N17.9 Acute kidney failure, unspecified; K46.9 Unspecified abdominal hernia without obstruction or gangrene | CPT/HCPCS: 99212 ==

== ENCOUNTER 2025-01-16 12:44 | Outpatient (AMB) | payer MEDICARE, SELFPAY ==
--- NOTE | 2025-01-16 13:02 | MHC.OFFVIS ---
Intake Visit Reasons: Greenlight follow up Intake Note: Patient is present for greenlight f/u Urology Medication:finasteride,tamsulosin Antibiotic Allergy:penicillins,amoxicillin Blood Thinner:none Automatic Folder Seamer Required: No Allergies Penicillins Allergy (Severe, Verified 01/16/25 13:03) short of breath amoxicillin Allergy (Intermediate, Verified 01/16/25 13:03) hives HPI Comments Details: Don is a pleasant male. He is a patient of Dr. Ferrell. He seen for the following urologic conditions - urinary retention - lower urinary tract symptoms Follow-up GreenLight laser with suprapubic tube placement States he has been urinating via his penis SP tube can remain clamped for 2 weeks and he can see nursing to check a PVR. If low the suprapubic tube can be removed Urinary retention Recent visit to emergency room with significant urinary retention 2500 cc residual Initial creatinine 10 as evidence of acute kidney injury Initial imaging with moderate bilateral hydronephrosis and hydroureter Resolution with indwelling Mcpherson catheter Started with finasteride and doxazosin PFSH Medical History (Updated 11/14/24 @ 14:50 by Gee Cuello) Tennis elbow Hypercholesterolemia Hypertension Surgical History (Updated 12/01/24 @ 07:57 by Sera Rubin RN) History of surgery on arm Social History (Updated 11/14/24 @ 14:35 by Suzan Jolly CMA) Household Members: Spouse Housing: House Are you a primary wild animal caretaker to a significant other at home: No Do you presently have visiting nurse or other home services: No Alcohol intake: current Alcohol intake frequency: a few times a month Patient Tobacco Use Status: Former Tobacco user Tobacco use type: Cigarette Years Smoked: 20 e-Cigarette/Vaping Use: Never Used Second Hand Smoke Exposure: No Substance Use Type: Former Substance User and Marijuana service: No Current occupational status: retired Current occupational exposures/hazards: No Cognitive needs: No Hearing needs: No Vision needs: No Review of Systems Const Denies chills and Denies fever(s) Card Reports no additional complaints and Denies syncope Resp Denies cough GI Denies abdominal pain and Denies heartburn Reports as per HPI and Denies change in libido Neuro Denies syncope Psych Denies change in libido Endo Denies change in libido Physical Exam Const General: cooperative, healthy appearing, comfortable and no acute distress Orientation/consciousness: patient oriented x3 HEENT Face and sinus: Yes normal facial exam Mouth: moist mucous membranes Neck Neck: Yes normal visual inspection, Yes full ROM and Yes trachea midline Chest Chest palpation & inspection: normal inspection of the chest Resp Effort & Inspection: normal respiratory effort, able to speak in complete sentences and no respiratory distress GI Inspection: Yes normal to inspection Back/Spine/Pelvis Cervical Spine: normal cervical lordosis Thoracic/Lumbar Spine: thoracic and lumbar spine normal to inspection Skin General skin exam: no rashes or lesions noted Neuro General: patient oriented x3, gait normal, tone normal and moves all extremities Extrem General: Yes normal to inspection and Yes capillary refill normal Assessment & Plan Assessment & Plan (1) Urinary frequency: Code(s): R35.0 - Frequency of micturition Category: Medical (2) Obstructive uropathy: Code(s): N13.9 - Obstructive and reflux uropathy, unspecified Category: Medical Plan Two week follow-up nursing. Orders: Orders AMB Urinalysis Automated 01/16/25 Z13.9 - Encounter for screening, unspecified Patient Instructions: This note is constructed using voice recognition software. While every effort has been made to ensure accuracy personal care aid errors may have been included. Imaging studies, laboratory and physical exam results were discussed and reviewed in detail. No major barriers to patient understanding were identified. An opportunity to ask questions regarding the treatment plan was provided. All questions were answered. The patient expressed understanding and agreement with the above treatment plan. The patient is aware they should contact our office by phone for worsening of their current condition or the appearance of new urologic symptoms. Compliance is encouraged with any medications and followup testing that is ordered. It is a privilege to participate in the urologic care of your patient. If you have any questions or concerns regarding treatment for the above conditions, or other urologic issues, please do not hesitate to contact me. The office telephone contact is [phone]. Sincerely, Dr Karson Candelario MD, [facility] - Urology Compassionate Specialist Care for the Genitourinary System Coding Level of Care Code Est Pt Level 3 (19287) Complex EM visit Add On G2211 Diagnoses Urinary frequency R35.0 Obstructive uropathy N13.9
== END 2025-01-16 13:37 | disposition home or self-care (01) ==
LOC: HO.HUSH 12:44
PROVIDERS: PCP Family Medicine; Visit Provider Urology
DX: R35.0 Frequency of micturition (principal); N13.9 Obstructive and reflux uropathy, unspecified
CPT/HCPCS: 99024

== ENCOUNTER → 2025-01-16 12:44 | Outpatient (BNVA) | payer MEDICARE, SELFPAY | PROVIDERS: PCP Family Medicine; Visit Provider Urology | DX: R33.9 Retention of urine, unspecified (principal); R35.0 Frequency of micturition; N13.9 Obstructive and reflux uropathy, unspecified; Z96.0 Presence of urogenital implants | CPT/HCPCS: 99212 ==

== ENCOUNTER → 2025-01-30 10:48 | Outpatient (BNVA) | payer MEDICARE, SELFPAY | PROVIDERS: PCP Family Medicine; Visit Provider Urology ==

== ENCOUNTER 2025-03-18 07:30 | Outpatient (REF) | payer MEDICARE, SELFPAY ==
[2025-03-18 11:23] LABS: Hematocrit 45.0 % (42.0-52.0); Hemoglobin 15.0 g/dl (14.0-18.0); Mean Corpuscular HGB Conc 33.3 g/dl (31.0-36.0); Mean Corpuscular Hemoglobin 30.5 pg (27.0-33.0); Mean Corpuscular Volume 91.6 fL (80.0-98.0); NRBC Abs Auto 0.000 X10*3/uL (0.0-0.012); NRBC Pct Auto 0.0 /100WBC (0.0-0.2); Platelet Count 204 X10*3/uL (160-400); Red Blood Count 4.91 X10*6/uL (4.60-5.80); White Blood Count 7.3 X10*3/uL (4.8-10.8)
[2025-03-18 11:45] LABS: Alanine Aminotransferase 11 U/L (0-40); Albumin Level 4.3 g/dL (3.5-5.0); Alkaline Phosphatase 65 U/L (39-117); Anion Gap 12 (12-20); Aspartate Amino Transferase 28 U/L (5-37); Blood Urea Nitrogen 13 mg/dL (9-16); Calcium 8.7 mg/dL (8.4-10.2); Carbon Dioxide 29 mmol/L (22-29); Chloride 103 mmol/L (96-108); Cholesterol 214 mg/dL (<200); Estimated Glomerular Filt Rate > 60; HDL Cholesterol 46 mg/dL (>40); Magnesium 2.3 mg/dL (1.6-2.6); Potassium 4.5 mmol/L (3.3-5.1); Sodium 139 mmol/L (135-145); Total Protein 7.2 g/dL (6.5-8.0); Triglycerides 104 mg/dL (<150)
== END 2025-03-18 07:31 | disposition home or self-care (01) ==
LOC: HO.WFDLDS 07:30
PROVIDERS: Internal Medicine; Visit Provider Family Medicine
DX: Z00.00 Encounter for general adult medical examination without abnormal findings (principal); I10 Essential (primary) hypertension; D64.9 Anemia, unspecified; E83.42 Hypomagnesemia; R63.8 Other symptoms and signs concerning food and fluid intake; N17.9 Acute kidney failure, unspecified; E87.5 Hyperkalemia
CPT/HCPCS: 36415; 80048; 80053; 80061; 83735; 85027

== ENCOUNTER 2025-03-23 08:34 | Outpatient (AMB) | payer MEDICARE, SELFPAY ==
--- NOTE | 2025-03-23 08:52 | MHC.PC.OV ---
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 Labs drawn 03/18/25. Reviewed labs with pt. Anemia resolved. Triglyceides 104. TC 214. LDL 148. HDL 46. Creatinine level 0.98 mg/dL. BP today 120/76, 68p. Has complaints of a lipoma. HPI Comments History of Present Illness Details Documentation assistance for Nathan Ferrell MD, was provided by Gee Cuello,? Book Cleaner on 03/23/2025 at 9:18 AM EST. I, Dr. Ferrell, have read, observed, and verified documentation. [facility] Medical History (Updated 03/23/25 @ 09:20 by Gee Cuello) Tennis elbow Hypercholesterolemia Hypertension Surgical History (Updated 12/01/24 @ 07:57 by Sera Rubin RN) History of surgery on arm Social History (Updated 11/14/24 @ 14:35 by Suzan Jolly CMA) Household Members: Spouse Housing: House Are you a primary medical care evaluation specialist to a significant other at home: No Do you presently have visiting nurse or other home services: No Alcohol intake: current Alcohol intake frequency: a few times a month Patient Tobacco Use Status: Former Tobacco user Tobacco use type: Cigarette Years Smoked: 20 e-Cigarette/Vaping Use: Never Used Second Hand Smoke Exposure: No Substance Use Type: Former Substance User and Marijuana service: No Current occupational status: retired Current occupational exposures/hazards: No Cognitive needs: No Hearing needs: No Vision needs: No Questionnaire Thrive Questionnaire Date Thrive assessed: 09/26/24 I am a: Patient What is your living situation today?: I have a steady place to live Within the past 12 months, did the food you bought not last and you didn't have the money to get more?: Never true Within the past 12 months, did you worry whether your food would run out before you got money to buy more?: Never true Do you have trouble paying for medicines?: No Do you have trouble getting transportation to medical appointments?: No Do you have trouble paying your heating and electricity bill?: No Do you have trouble taking care of your child, family member or friend?: No Do you have trouble with day-to-day activities such as bathing, preparing meals, shopping, managing finances, etc.?: No Are you currently unemployed and looking for a job?: No Are you interested in more education?: No Please select the resources that you would like help with: None Currently or been in a relationship where the following occur: No concerns reported THRIVE Score: 0 SRIDHAR-7 AMB Questionnaire SRIDHAR-7 Date SRIDHAR - 7 assessed: 12/31/23 Source: Developed by Drs. Don Flynn, Gauri Cevallos, Obey Wilkinson and colleagues, with an educational cindy from [employer]. Review of Systems Const Denies chills, Denies fatigue, Denies fever(s), Denies headache(s) and Denies weakness ENT Denies dizziness and Denies headache(s) Card Denies dyspnea Resp Denies cough, Denies dyspnea, Denies wheezing and Denies other (shortness of breath) Musc Denies numbness and Denies tingling Neuro Denies dizziness, Denies headache(s), Denies numbness, Denies tingling and Denies weakness Psych Denies anxiety and Denies depression Endo Denies fatigue Aller/Immun Denies wheezing Physical exam (Primary Care) Vital Signs: Last Vital Signs Temp 97.8 F 03/23/25 08:54 Pulse 68 03/23/25 08:54 Resp 14 03/23/25 08:54 BP 120/76 03/23/25 08:57 Pulse Ox 97 03/23/25 08:54 Oxygen Delivery Method Room Air 03/23/25 08:54 BMI result Body Mass Index 28.4 Tobacco/Smoking Status: Tobacco use Status Tobacco use date assessed 11/14/24 03/23/25 08:58 Patient Tobacco Use Status Former Tobacco user 03/23/25 08:58 Tobacco use type Cigarette 03/23/25 08:58 e-Cigarette/Vaping Use Never Used 03/23/25 08:58 Thrive Assessment: Date of Thrive Assessment Date Thrive assessed 09/26/24 03/23/25 08:58 Currently or been in a relationship where the following occur: No concerns reported Const General: well developed; No acute distress Nutritional Appearance: well nourished Orientation/consciousness: patient oriented x3 HENMT Head: Yes normocephalic and Yes atraumatic Eyes General: appearance normal, both eyes and all related structures Pupils: Equal, round and reactive pupils present EOM: EOMs intact bilaterally Resp Effort & Inspection: normal respiratory effort Neuro General: patient oriented x3 and gait normal Cranial nerves: Yes Equal, round and reactive pupils present Psych Affect: normal affect Coding Level of Care Code Est Pt Level 4 (13024) Diagnoses Hypertension I10 LETI (acute kidney injury) N17.9 Hypercholesterolemia E78.00 Lipoma D17.9 Assessment & Plan Assessment & Plan (1) Hypertension: Code(s): I10 - Essential (primary) hypertension Category: Medical Plan: blood pressure is controlled with diet. Goal is less than 140/90 continue diet control (2) LETI (acute kidney injury): Code(s): N17.9 - Acute kidney failure, unspecified Category: Medical Plan: renal function back within normal range. He is s/p green light procedure finishing up tamsulosin and finasteride and he can check with his urologist about continuing these. (3) Hypercholesterolemia: Code(s): E78.00 - Pure hypercholesterolemia, unspecified Category: Medical Plan: LDL cholesterol is too high did not tolerate statins in the past trial Zetia and work at a diet low in saturated fats and cholesterol will recheck lipids with next blood draw (4) Lipoma: Code(s): D17.9 - Benign lipomatous neoplasm, unspecified Category: Medical Plan: 2 cm lipoma on posterior left neck lesion is round fluctuant and mobile he will let me know if this is getting irritated - if continues to enlarge or getting irritated, will refer to Dermatology Orders: Orders Lipid Panel Today E78.00 - Pure hypercholesterolemia, unspecified, Z00.00 - Encounter for general adult medical examination without abnormal findings Comprehensive [place]. Panel Fast Today E78.00 - Pure hypercholesterolemia, unspecified, Z00.00 - Encounter for general adult medical examination without abnormal findings Medications: New ezetimibe (Zetia) 10 mg PO DAILY 90 tabs 3RF 90 days
[2025-03-23 08:54] VITALS: BP 140/70; PULSE 68; RESP 14; TEMP 36.6; O2SAT 97; BMI 28.4
[2025-03-23 08:57] VITALS: BP 120/76
== END 2025-03-23 09:23 | disposition home or self-care (01) ==
LOC: HO.HMCFM 08:35
PROVIDERS: PCP Family Medicine; Visit Provider Family Medicine
DX: I10 Essential (primary) hypertension (principal); N17.9 Acute kidney failure, unspecified; E78.00 Pure hypercholesterolemia, unspecified; D17.9 Benign lipomatous neoplasm, unspecified

== ENCOUNTER → 2025-03-23 08:34 | Outpatient (BNVA) | payer MEDICARE, SELFPAY | PROVIDERS: PCP Family Medicine; Visit Provider Family Medicine | DX: I10 Essential (primary) hypertension (principal); E78.00 Pure hypercholesterolemia, unspecified; D17.9 Benign lipomatous neoplasm, unspecified; N17.9 Acute kidney failure, unspecified | CPT/HCPCS: 99212 ==

== ENCOUNTER 2025-05-01 09:03 | Outpatient (AMB) | payer MEDICARE, SELFPAY ==
--- NOTE | 2025-05-01 09:15 | A.OFFVIS_ITS ---
Intake Visit Reasons: 3m f/u Intake Note: Patient is present for:3mo follow up Urology Medication:finasteride,tamsulosin Blood Thinner:none today's PVR: 189mls [place] Laborer Required: No Accompanied by: Self / Same As Patient Allergies Penicillins Allergy (Severe, Verified 05/01/25 09:16) short of breath amoxicillin Allergy (Intermediate, Verified 05/01/25 09:16) hives HPI Comments Details: Don is a pleasant male. He is a patient of Dr. Ferrell. He seen for the following urologic conditions - urinary retention - lower urinary tract symptoms Three-month follow-up Suprapubic tube removed PVR 190 cc Six-month follow-up remain on finasteride check PSA Urinary retention Recent visit to emergency room with significant urinary retention 2500 cc residual Initial creatinine 10 as evidence of acute kidney injury Initial imaging with moderate bilateral hydronephrosis and hydroureter Resolution with indwelling Mcpherson catheter Started with finasteride and doxazosin Underwent GreenLight laser prostatectomy with suprapubic tube placement 12/19 [facility] Medical History (Updated 03/23/25 @ 09:20 by Gee Cuello) Tennis elbow Hypercholesterolemia Hypertension Surgical History (Updated 12/01/24 @ 07:57 by Sera Rubin RN) History of surgery on arm Social History (Updated 11/14/24 @ 14:35 by Suzan Jolly CMA) Household Members: Spouse Housing: House Are you a primary intensive care specialist to a significant other at home: No Do you presently have visiting nurse or other home services: No Alcohol intake: current Alcohol intake frequency: a few times a month Patient Tobacco Use Status: Former Tobacco user Tobacco use type: Cigarette Years Smoked: 20 e-Cigarette/Vaping Use: Never Used Second Hand Smoke Exposure: No Substance Use Type: Former Substance User and Marijuana service: No Current occupational status: retired Current occupational exposures/hazards: No Cognitive needs: No Hearing needs: No Vision needs: No Review of Systems Const Denies chills and Denies fever(s) Card Reports no additional complaints and Denies syncope Resp Denies cough GI Denies abdominal pain and Denies heartburn Reports as per HPI and Denies change in libido Neuro Denies syncope Psych Denies change in libido Endo Denies change in libido Physical Exam Const General: cooperative, healthy appearing, comfortable and no acute distress Orientation/consciousness: patient oriented x3 HEENT Face and sinus: Yes normal facial exam Mouth: moist mucous membranes Neck Neck: Yes normal visual inspection, Yes full ROM and Yes trachea midline Chest Chest palpation & inspection: normal inspection of the chest Resp Effort & Inspection: normal respiratory effort, able to speak in complete sentences and no respiratory distress GI Inspection: Yes normal to inspection Back/Spine/Pelvis Cervical Spine: normal cervical lordosis Thoracic/Lumbar Spine: thoracic and lumbar spine normal to inspection Skin General skin exam: no rashes or lesions noted Neuro General: patient oriented x3, gait normal, tone normal and moves all extremities Extrem General: Yes normal to inspection and Yes capillary refill normal Office Procedures Post Void Residual Post Residual Void Post Void Residual (PVR): 189 [id number]-[id number] Void Residual by ultrasound Assessment & Plan Assessment & Plan (1) Elevated PSA: Code(s): R97.20 - Elevated prostate specific antigen [PSA] Category: Medical (2) Obstructive uropathy: Code(s): N13.9 - Obstructive and reflux uropathy, unspecified Category: Medical Plan Six-month follow-up PSA Orders: Orders AMB Post Void Residual by ultrasound Today N32.0 - Bladder-neck obstruction PSA,Total (Free>4and<10) 6 Months N32.0 - Bladder-neck obstruction Medications: Refilled finasteride 5 mg PO DAILY 90 tabs 1RF 90 days N32.0 - Bladder-neck obstruction Discontinued tamsulosin Discontinued Reason: Patient Completed Course 0.4 mg PO DAILY 90 days 90 caps 0RF Patient Instructions: This note is constructed using voice recognition software. While every effort has been made to ensure accuracy pathologist errors may have been included. Imaging studies, laboratory and physical exam results were discussed and reviewed in detail. No major barriers to patient understanding were identified. An opportunity to ask questions regarding the treatment plan was provided. All questions were answered. The patient expressed understanding and agreement with the above treatment plan. The patient is aware they should contact our office by phone for worsening of their current condition or the appearance of new urologic symptoms. Compliance is encouraged with any medications and followup testing that is ordered. It is a privilege to participate in the urologic care of your patient. If you have any questions or concerns regarding treatment for the above conditions, or other urologic issues, please do not hesitate to contact me. The office telephone contact is [phone]. Sincerely, Dr Karson Candelario MD, [facility] - Urology Compassionate Specialist Care for the Genitourinary System Coding Level of Care Code Est Pt Level 3 (92980) Complex EM visit Add On G2211 Diagnoses Elevated PSA R97.20 Obstructive uropathy N13.9 CPT Codes Post Residual Void - PVR CPT Code: 95023-Mlxm Void Residual by ultrasound ([id number])
== END 2025-05-01 09:59 | disposition home or self-care (01) ==
LOC: HO.HUSH 09:04
PROVIDERS: PCP Family Medicine; Visit Provider Urology
DX: R97.20 Elevated prostate specific antigen [PSA] (principal); N13.9 Obstructive and reflux uropathy, unspecified
CPT/HCPCS: 99213; G2211

== ENCOUNTER → 2025-05-01 09:03 | Outpatient (BNVA) | payer MEDICARE, SELFPAY | PROVIDERS: PCP Family Medicine; Visit Provider Urology | DX: R33.9 Retention of urine, unspecified (principal); R97.20 Elevated prostate specific antigen [PSA]; N13.9 Obstructive and reflux uropathy, unspecified | CPT/HCPCS: 51798; 99212 ==

== ENCOUNTER 2025-07-22 07:39 | Outpatient (REF) | payer MEDICARE, SELFPAY ==
[2025-07-22 12:48] LABS: Alanine Aminotransferase 20 U/L (0-40); Albumin Level 4.3 g/dL (3.5-5.0); Alkaline Phosphatase 62 U/L (39-117); Anion Gap 10 (12-20); Aspartate Amino Transferase 34 U/L (5-37); Blood Urea Nitrogen 14 mg/dL (9-16); Calcium 8.9 mg/dL (8.4-10.2); Carbon Dioxide 29 mmol/L (22-29); Chloride 106 mmol/L (96-108); Cholesterol 179 mg/dL (<200); Estimated Glomerular Filt Rate > 60; HDL Cholesterol 40 mg/dL (>40); Potassium 4.2 mmol/L (3.3-5.1); Sodium 141 mmol/L (135-145); Total Protein 7.2 g/dL (6.5-8.0); Triglycerides 124 mg/dL (<150)
== END 2025-07-22 07:40 | disposition home or self-care (01) ==
LOC: HO.WFDLDS 07:39
PROVIDERS: Visit Provider Family Medicine
DX: Z00.00 Encounter for general adult medical examination without abnormal findings (principal); E78.00 Pure hypercholesterolemia, unspecified; N17.9 Acute kidney failure, unspecified; E87.5 Hyperkalemia
CPT/HCPCS: 36415; 80048; 80053; 80061

== ENCOUNTER 2025-07-27 09:16 | Outpatient (AMB) | payer MEDICARE, SELFPAY ==
[2025-07-27 09:19] VITALS: BP 144/86; PULSE 88; TEMP 36.2; O2SAT 99
--- NOTE | 2025-07-27 09:19 | A.OFFPC_ITS ---
Vital Signs 07/27/25 09:19 Height 5 ft 11 in Weight 215 lb 2 oz BMI 30.0 BP 144/86 H Blood Pressure Location Rt brachial Position Sitting Pulse 88 Pulse Source Pulse Oximeter Temp 97.2 F Temp Source Temporal Artery Scan Pulse Oximetry (%) 99 Oxygen Delivery Method Room Air Intake Visit Reasons: f/u HTN, lipids - see comments Allergies Penicillins Allergy (Severe, Verified 07/27/25 09:22) short of breath amoxicillin Allergy (Intermediate, Verified 07/27/25 09:22) hives Medication List - Last Reconciled 07/27/25 by Nathan Ferrell MD finasteride 5 mg PO DAILY 90 days Tobacco use date assessed: 07/27/25 Fall risk assessment: No Falls in past year Last assessed Fall Risk: 07/27/25 Dental Screening Dental Screen Date: 07/27/25 Did you have a dental visit in the last 12 months?: No Did you have a dental problem in the last 6 months where you did not have access to dental care?: No Was dental information given to patient?: Patient declined HPI f/u HTN, lipids - see comments HPI Details 75 y/o male presents to f/u HTN, lipids. Blood pressure today 144/86, 88p. He is on amlodipine 5mg daily. Notes he is tolerating Zetia. [facility] Medical History Tennis elbow Hypercholesterolemia Hypertension Surgical History History of surgery on arm Social History Household Members: Spouse Housing: House Are you a primary family member caretaker to a significant other at home: No Do you presently have visiting nurse or other home services: No Alcohol intake: current Alcohol intake frequency: a few times a month Patient Tobacco Use Status: Former Tobacco user Tobacco use type: Cigarette Years Smoked: 20 e-Cigarette/Vaping Use: Never Used Second Hand Smoke Exposure: No Substance Use Type: Former Substance User and Marijuana service: No Current occupational status: retired Current occupational exposures/hazards: No Cognitive needs: No Hearing needs: No Vision needs: No Questionnaire PHQ-9 Over the last 2 weeks, how often have you been bothered by any of the following problems? 1. Little interest or pleasure in doing things: several days 2. Feeling down, depressed, or hopeless: not at all 3. Trouble falling or staying asleep, or sleeping too much: not at all 4. Feeling tired or having little energy: nearly every day 5. Poor appetite or overeating: nearly every day 6. Feeling bad about yourself - or that you are a failure or have let yourself or your family down: not at all 7. Trouble concentrating on things, such as reading the newspaper or watching television: not at all 8. Moving or speaking so slowly that other people could have noticed. Or the opposite - being so fidgety or restless that you have been moving around a lot more than usual: several days 9. Thoughts that you would be better off or of hurting yourself in some way: not at all Total score: 8 Source: Developed by Drs. Don Flynn, Gauri Cevallos, Obey Wilkinson and colleagues, with an educational cindy from [employer]. Thrive Questionnaire Date Thrive assessed: 09/26/24 I am a: Patient What is your living situation today?: I have a steady place to live Within the past 12 months, did the food you bought not last and you didn't have the money to get more?: Never true Within the past 12 months, did you worry whether your food would run out before you got money to buy more?: Never true Do you have trouble paying for medicines?: No Do you have trouble getting transportation to medical appointments?: No Do you have trouble paying your heating and electricity bill?: No Do you have trouble taking care of your child, family member or friend?: No Do you have trouble with day-to-day activities such as bathing, preparing meals, shopping, managing finances, etc.?: No Are you currently unemployed and looking for a job?: No Are you interested in more education?: No Please select the resources that you would like help with: None Currently or been in a relationship where the following occur: No concerns reported THRIVE Score: 0 AUDIT C Alcohol Use Questionnaire (AUDIT-C) 1. How often do you have a drink containing alcohol?: 2-3 times a week 2. How many drinks containing alcohol do you have on a typical day when you are drinking?: 1 or 2 3. How often do you have six or more drinks on one occasion?: Never Total Score: 3 SRIDHAR-7 AMB Questionnaire SRIDHAR-7 Date SRIDHAR - 7 assessed: 07/27/25 Feeling nervous, anxious, or on edge: 0 = Not at all Not being able to stop or control worryin = Not at all Worrying too much about different things: 0 = Not at all Trouble relaxin = Not at all Being so restless that it is hard to sit still: 0 = Not at all Becoming easily annoyed or irritable: 0 = Not at all Feeling afraid as if something awful might happen: 0 = Not at all Total SRIDHAR-7 score (0-4 normal; 5-9 mild; 10-14 moderate; 15-21 severe): 0 Source: Developed by Drs. Don Flynn, Gauri Cevallos, Obey Wilkinson and colleagues, with an educational cindy from [employer]. SRIDHAR-7 Assessment Billing SRIDHAR-7 Assessment Tool: SRIDHAR-7 Assessment 54757 Review of Systems Const Denies chills, Denies fatigue, Denies fever(s), Denies headache(s) and Denies weakness ENT Denies dizziness and Denies headache(s) Card Denies dyspnea Resp Denies cough, Denies dyspnea, Denies wheezing and Denies other (shortness of breath) Musc Denies numbness and Denies tingling Neuro Denies dizziness, Denies headache(s), Denies numbness, Denies tingling and Denies weakness Psych Denies anxiety and Denies depression Endo Denies fatigue Aller/Immun Denies wheezing Physical exam (Primary Care) Vital Signs: Last Vital Signs Temp 97.2 F 07/27/25 09:19 Pulse 88 07/27/25 09:19 BP 144/86 H 07/27/25 09:19 Pulse Ox 99 07/27/25 09:19 Oxygen Delivery Method Room Air 07/27/25 09:19 BMI result Body Mass Index 30.0 Tobacco/Smoking Status: Tobacco use Status Tobacco use date assessed 07/27/25 07/27/25 09:24 Patient Tobacco Use Status Former Tobacco user 07/27/25 09:24 Tobacco use type Cigarette 07/27/25 09:24 e-Cigarette/Vaping Use Never Used 07/27/25 09:24 PHQ-9: PHQ-9 Score PHQ-9: Total score 8 07/27/25 09:36 Thrive Assessment: Date of Thrive Assessment Date Thrive assessed 09/26/24 07/27/25 09:24 Currently or been in a relationship where the following occur: No concerns reported Const General: well developed; No acute distress Nutritional Appearance: well nourished Orientation/consciousness: patient oriented x3 HENMT Head: Yes normocephalic and Yes atraumatic Eyes General: appearance normal, both eyes and all related structures Pupils: Equal, round and reactive pupils present EOM: EOMs intact bilaterally Resp Effort & Inspection: normal respiratory effort Neuro General: patient oriented x3 and gait normal Cranial nerves: Yes Equal, round and reactive pupils present Psych Affect: normal affect Coding Level of Care Code Est Pt Level 3 (91076) Diagnoses Hypertension I10 Hypercholesterolemia E78.00 Additional Codes SRIDHAR-7 Assessment Billing - SRIDHAR-7 Assessment Tool: SRIDHAR-7 Assessment 72306 ([id number]) Assessment & Plan Assessment & Plan (1) Hypertension: Code(s): I10 - Essential (primary) hypertension Category: Medical (2) Hypercholesterolemia: Code(s): E78.00 - Pure hypercholesterolemia, unspecified Category: Medical Plan Blood pressure is elevated. Goal is less than 140/90 Will trial amlodipine 5 mg daily He has gained about 12 lb and encouraged weight loss Patient says he is tolerating Zetia though it is in his med list. Continue Zetia He has decreased LDL cholesterol by about 33 points. Still about 50 points above goal. Continue working at a diet low in saturated fats and cholesterol Encouraged exercise weight loss Orders: Orders Lipid Panel Today Z00.00 - Encounter for general adult medical examination without abnormal findings Prostate Specific Antigen Scr Today Z12.5 - Encounter for screening for malignant neoplasm of prostate UA CC w/rflx Micro + Cult Today Z00.00 - Encounter for general adult medical examination without abnormal findings Comprehensive [place]. Panel Fast Today Z00.00 - Encounter for general adult medical examination without abnormal findings Complete Blood Count Auto Diff Today Z00.00 - Encounter for general adult medical examination without abnormal findings Microalbumin, Random (w Creat) Today I10 - Essential (primary) hypertension TSH reflex Free T4 Today Z00.00 - Encounter for general adult medical examination without abnormal findings Medications: New amlodipine 5 mg PO DAILY 90 tabs 3RF 90 days Refilled ezetimibe (Zetia) 10 mg PO DAILY 90 tabs 3RF 90 days
== END 2025-07-27 09:48 | disposition home or self-care (01) ==
LOC: HO.HMCFM 09:17
PROVIDERS: PCP Family Medicine; Visit Provider Family Medicine
DX: I10 Essential (primary) hypertension (principal); E78.00 Pure hypercholesterolemia, unspecified

== ENCOUNTER → 2025-07-27 09:16 | Outpatient (BNVA) | payer MEDICARE, SELFPAY | PROVIDERS: PCP Family Medicine; Visit Provider Family Medicine | DX: I10 Essential (primary) hypertension (principal); E78.00 Pure hypercholesterolemia, unspecified | CPT/HCPCS: 96127; 99212 ==